=== PATIENT | female | born 1935 | race Caucasian/White ===

== ENCOUNTER 2017-02-13 20:09 | Emergency (ER) | payer MEDICARE ==
[~2017-02-13 20:09] MED LIST: ADVAI500I PO; BENI40TA30 PO; CYAN1KIT2 IM; DOCU1CAP39 PO; ESCI10TA PO; FERR324T4 PO; FLUT50I; HYDR-3533 PO; HYDR10SO PO; OMEP20.62 PO; TRAZ50TA78 PO; TUMS500C CHEW; WHEELCHAIR RENTAL RA
[2017-02-13 20:10] VITALS: BP 216/100; PULSE 72; RESP 16; TEMP 98.2; O2SAT 100
--- NOTE | 2017-02-13 20:46 | PD ---
Physical Exam Date Seen by Provider: Feb 13, 2017 Time Seen by Provider: 20:40 Narrative 81 YOWF C/O WEAKNESS AND MALAISE FOR 1 MONTH WORSE THIS WEEK. ALSO WITH N/V. HAS HOME HEALTH. HOME DOCTOR VISIT THIS WEEK VITALS REVIEWED. AWAITING BED PLACEMENT Data Data Last Documented VS Vital Signs Date Time Temp Pulse Resp B/P Pulse Ox O2 Delivery O2 Flow Rate FiO2 02/13/17 20:10 98.2 72 16 216/100 100 Room Air [facility] Medical Record Reviewed: Yes Supervised Visit with EDGAR: Yes Jitendra Pena Feb 13, 2017 20:46
[2017-02-13 20:49] VITALS: BP 186/88; PULSE 72; RESP 16; O2SAT 100
[2017-02-13] MEDS ORDERED: ONDANSETRON HCL 4 MG/2 ML VIAL IV ONE (22:00)
[2017-02-13] MEDS ORDERED: SODIUM CHLORID 0.9% 500 ML INJ 500 ML IV ONE (22:00)
[2017-02-13 22:10] VITALS: BP 206/96; PULSE 69; RESP 18; O2SAT 100
[2017-02-13] MEDS ORDERED: FERR1TAB36 PO (22:14)
[2017-02-13] MEDS ORDERED: BENI40TA3 PO (22:14)
[2017-02-13] MEDS ORDERED: LEXA10TA PO (22:14)
[2017-02-13] MEDS ORDERED: B12-1CHW CHEW (22:14)
[2017-02-13] MEDS ORDERED: OXYB5TAB10 PO (22:14)
[2017-02-13] MEDS ORDERED: COLA100C3 PO (22:14)
[2017-02-13] MEDS ORDERED: MELA5TAB15 PO (22:14)
[2017-02-13 22:15] VITALS: RESP 18; O2SAT 100
--- NOTE | 2017-02-13 22:40 | RADRPT ---
EXAM DATE/TIME: 02/13/2017 22:27 [facility] COMPARISON: CHEST SINGLE AP, June 17, 2016, 19:13. INDICATIONS : Chest pain. MEDICAL HISTORY : Hypertension. Right renal cell carcinoma. SURGICAL HISTORY : None. ENCOUNTER: Initial ACUITY: 1 day PAIN SCORE: 5/10 LOCATION: Bilateral chest FINDINGS: The lungs are clear without infiltrate, nodule, or mass. There is no appreciable pleural effusion fo r technique. Heart and mediastinum are unremarkable. CONCLUSION: No acute cardiopulmonary disease. Adelina Sharpe MD on February 13, 2017 at 22:38 Board Certified Radiologist. This report was verified electronically.
--- NOTE | 2017-02-13 22:43 | PD ---
HPI Chief Complaint: General Weakness Time Seen by Provider: 21:57 Travel History International Travel<30 days: No Contact w/Intl Traveler<30days: No Traveled to known affect area: No History of Present Illness HPI The patient is an 81 year old female who presents to the [facility] emergency department with a history of increased generalized weakness over the last week and a half to 2 weeks. The patient was brought in by her family member that reports that the patient has also been experiencing a component of depression. She was previously having home health come out to visit her and stay with her throughout the day, however recently she is only having visitors for a few hours a day. She also seems to be slightly more confused than usual according to her family member. They were concerned that she may have a urinary tract infection, however urinalysis a week and a half ago was reportedly normal. The patient also has an anterior right spencer wound related to bumping her right leg 2-1/2 weeks ago. It is being Willie and dressed on a daily basis. According to family, it is slowly improving with time. She reports that this morning on review of systems she did have a right-sided headache that resolved. She denies having any one-sided weakness, slurred speech, facial droop, difficulty with word finding ability or vision changes. The patient reports that she has had some urinary frequency and urgency she denies having any dysuria. The patient denies any recent fevers, cough, congestion, neck pain, chest pain, shortness of breath, vomiting, diarrhea, or other neurologic symptoms. PFSH Past Medical History Narrative Medical The patient's past medical history is significant for right-sided breast cancer status post lymph node resection and mastectomy with chronic lymphedema of the right upper extremity, history of uterine cancer status post hysterectomy, history of nephrectomy related to hematoma, history of some memory loss, hypertension, arthritis, osteoporosis, recent bilateral knee replacement, history of recent hip fracture status post ORIF, history of COPD and asthma, history of peptic ulcer disease, acid reflux, history of anemia with blood transfusion previously thought to be related to having a single kidney. Arthritis: No Asthma: Yes Autoimmune Disease: No Blood Disorders: No Anxiety: No Depression: No Heart Rhythm Problems: No Cancer: Yes (Right kidney CA) Cardiovascular Problems: No High Cholesterol: No Chemotherapy: Yes (BREASTS) Chest Pain: No Congestive Heart Failure: No COPD: Yes Cerebrovascular Accident: No Diabetes: No Diminished Hearing: Yes Endocrine: No Gastrointestinal Disorders: Yes (GERD) GERD: Yes Glaucoma: No Genitourinary: No Headaches: No Hepatitis: No Hiatal Hernia: No Hypertension: Yes Immune Disorder: No Implanted Vascular Access Dvce: Yes Kidney Stones: No Musculoskeletal: Yes Neurologic: No Psychiatric: No Reproductive: No Respiratory: Yes Integumentary: Yes (RIGHT ARM CELLULITIS) Immunizations Current: Yes Migraines: No Myocardial Infarction: No Radiation Therapy: No Renal Failure: No Seizures: No Sickle Cell Disease: No Sleep Apnea: No Thyroid Disease: No Ulcer: No Tetanus Vaccination: Unknown Influenza Vaccination: No PNEUMOCCOCAL Vaccine (Year): 1 ?: Not Menopausal: Yes : 3 Para: 3 Past Surgical History Narrative Surgical The patient's past surgical history is significant for right breast mastectomy, lymph node resection right axilla, hysterectomy, right nephrectomy, hernia repair, bilateral knee replacement, hip ORIF Abdominal Surgery: Yes AICD: No Appendectomy: Yes Arteriovenous Shunt: No Body Medical Devices: POSSIBLE MESH TO RIGHT GROIN Cardiac Surgery: No Section: Yes (3) Cholecystectomy: No Ear Surgery: No Endocrine Surgery: Yes (KINDEY REMOVAL 2003) Eye Surgery: No Genitourinary Surgery: No Gynecologic Surgery: Yes (hysterectomy) Hysterectomy: Yes Insulin Pump: No Joint Replacement: Yes (bilat knees right hip IM nail) Mastectomy: Yes (right) Neurologic Surgery: No Oral Surgery: No Pacemaker: No Thoracic Surgery: No Other Surgery: Yes (RIGHT MASTECTOMY 1996) Social History Alcohol Use: No Tobacco Use: No Substance Use: No Allergies-Medications (Allergen,Severity, Reaction): Coded Allergies: Demerol (Verified Allergy, Severe, 02/13/17) Niacin (Verified Allergy, Severe, RASH, 02/13/17) Penicillin (Verified Allergy, Severe, SKIN PEALED, 02/13/17) Sulfa (Verified Allergy, Severe, 02/13/17) Iodine (Verified Allergy, Unknown, unknown, 02/13/17) Pt was told never to use Iodine Uncoded Allergies: generic Benicar (Adverse Reaction, Severe, Hypertension, 06/17/16) Reported Meds & Prescriptions Reported Meds & Active Scripts Active Reported Iron (Ferrous Sulfate) 325 Mg Tab 325 Mg PO DAILY Take Ditropan (Oxybutynin Chloride) 5 Mg Tab 5 Mg PO HS Melatonin 5 Mg Tab 2 Mg PO HS Colace (Docusate Sodium) 100 Mg Cap 100 Mg PO HS Lexapro (Escitalopram Oxalate) 10 Mg Tab 10 Mg PO DAILY O39-Fixomg (Methylcobalamin) 1 Mg Chew 1 Mg CHEW DAILY Benicar (Olmesartan) 40 Mg Tab 40 Mg PO DAILY Review of Systems Except as stated in HPI: all other systems reviewed are Neg General / Constitutional: No: Fever Eyes: No: Visual changes HENT: No: Headaches Cardiovascular: No: Chest Pain or Discomfort Respiratory: No: Shortness of Breath Gastrointestinal: Positive: Nausea, Other (her last bowel movement was reportedly yesterday), No: Vomiting, Diarrhea, Abdominal Pain, Constipation, Changes in Bowel Habits, Loss of Appetite Genitourinary: No: Dysuria Musculoskeletal: No: Pain Skin: No Rash Neurologic: Positive: Weakness (generalized weakness and fatigue), No: Focal Abnormalities, Change in Mentation, Slurred Speech, Sensory Disturbance Psychiatric: No: Depression Endocrine: No: Polydipsia Hematologic/Lymphatic: No: Easy Bruising Physical Exam Narrative General: The patient is a well-developed well-nourished female in no acute distress. Head and Neck exam: Head is normocephalic atraumatic. Eyes: EOMI, pupils are equal round and reactive to light. Nose: Midline septum with pink mucous membranes Mouth: Dentition unremarkable. Moist mucus membranes. Posterior oropharynx is not erythematous. No tonsillar hypertrophy. Uvula midline. Airway patent. Neck: No palpable lymphadenopathy. No nuchal rigidity. No thyromegaly. Cardiovascular: Regular rate and rhythm without murmurs, gallops, or rubs. Lungs: Clear to auscultation bilaterally. No wheezes, rhonchi, or rales. Abdomen: Soft, without tenderness to palpation in all 4 quadrants of the abdomen. No guarding, rebound, or rigidity. Normal bowel sounds are audible. No tenderness on palpation of McBurney's point. Negative Barba's sign. Extremities: No clubbing or cyanosis.. 2+ pulses in all 4 extremities. The patient on examination of the right upper extremity has slight swelling noted which is chronic related to lymphedema Back: No spinous process tenderness to palpation. No costovertebral angle tenderness to palpation. Neurologic Exam: Cranial nerves 2-12 were intact on exam. Strength is 5/5 in all 4 extremities. No sensory deficits noted. Skin Exam: No rash noted. Intact skin that is warm and dry. She does have an abrasion on the right anterior spencer has a clean, dry, and intact bandage in place, there is a small surrounding area of erythema, no tenderness on palpation. No crepitus. No warmth or edema. Data Data Last Documented VS Vital Signs Date Time Temp Pulse Resp B/P Pulse Ox O2 Delivery O2 Flow Rate FiO2 02/13/17 22:15 18 100 Room Air 02/13/17 22:10 69 206/96 02/13/17 20:10 98.2 Orders Electrocardiogram (02/13/17 21:58) Complete Blood Count With Diff (02/13/17 21:58) Comprehensive Metabolic Panel (02/13/17 21:58) Creatine Kinase (Cpk) (02/13/17 21:58) Ckmb (Isoenzyme) Profile (02/13/17 21:58) Troponin I (02/13/17 21:58) B-Type Natriuretic Peptide (02/13/17 21:58) Prothrombin Time / Inr (Pt) (02/13/17 21:58) Act Partial Throm Time (Ptt) (02/13/17 21:58) Blood Culture (02/13/17 21:58) Lipase (02/13/17 21:58) Urinalysis - C+S If Indicated (02/13/17 21:58) Cath For Specimen (02/13/17 21:58) Magnesium (Mg) (02/13/17 21:58) Thyroid Stimulating Hormone (02/13/17 21:58) Chest, Single Ap (02/13/17 21:58) Iv Access Insert/Monitor (02/13/17 21:58) Ecg Monitoring (02/13/17 21:58) Oximetry (02/13/17 21:58) Lactic Acid Sepsis Protocol (02/13/17 21:58) Sodium Chlorid 0.9% 500 Ml Inj (Ns 500 M (02/13/17 22:00) Ondansetron Inj (Zofran Inj) (02/13/17 22:00) Ct Brain W/O Iv Contrast(Rout) (02/13/17 23:56) Labs Laboratory Tests Test 02/13/17 02/13/17 22:22 23:15 White Blood Count 7.2 TH/MM3 Red Blood Count 3.92 MIL/MM3 Hemoglobin 12.4 GM/DL Hematocrit 35.8 % Mean Corpuscular Volume 91.4 FL Mean Corpuscular Hemoglobin 31.7 PG Mean Corpuscular Hemoglobin 34.7 % Concent Red Cell Distribution Width 12.8 % Platelet Count 219 TH/MM3 Mean Platelet Volume 8.0 FL Neutrophils (%) (Auto) 63.0 % Lymphocytes (%) (Auto) 25.6 % Monocytes (%) (Auto) 8.7 % Eosinophils (%) (Auto) 2.3 % Basophils (%) (Auto) 0.4 % Neutrophils # (Auto) 4.5 TH/MM3 Lymphocytes # (Auto) 1.8 TH/MM3 Monocytes # (Auto) 0.6 TH/MM3 Eosinophils # (Auto) 0.2 TH/MM3 Basophils # (Auto) 0.0 TH/MM3 CBC Comment DIFF FINAL Differential Comment Prothrombin Time 10.1 SEC Prothromb Time International 0.9 RATIO Ratio Activated Partial 28.0 SEC Thromboplast Time Sodium Level 136 MEQ/L Potassium Level 4.3 MEQ/L Chloride Level 100 MEQ/L Carbon Dioxide Level 27.8 MEQ/L Anion Gap 8 MEQ/L Blood Urea Nitrogen 14 MG/DL Creatinine 0.86 MG/DL Estimat Glomerular Filtration 63 ML/MIN Rate Random Glucose 83 MG/DL Lactic Acid Level 0.4 mmol/L Calcium Level 10.1 MG/DL Magnesium Level 2.2 MG/DL Total Bilirubin 0.6 MG/DL Aspartate Amino Transf 15 U/L (AST/SGOT) Alanine Aminotransferase 16 U/L (ALT/SGPT) Alkaline Phosphatase 98 U/L Total Creatine Kinase 52 U/L Troponin I 0.05 NG/ML B-Type Natriuretic Peptide 34 PG/ML Total Protein 7.3 GM/DL Albumin 3.7 GM/DL Lipase 183 U/L Thyroid Stimulating Hormone 1.290 uIU/ML 3rd Gen Urine Color LIGHT-YELLOW Urine Turbidity CLEAR Urine pH 7.0 Urine Specific [place] 1.004 Urine Protein NEG mg/dL Urine Glucose (UA) NEG mg/dL Urine Ketones NEG mg/dL Urine Occult Blood NEG Urine Nitrite NEG Urine Bilirubin NEG Urine Urobilinogen LESS THAN 2.0 MG/DL Urine Leukocyte Esterase NEG Urine WBC LESS THAN 1 /hpf Urine Squamous Epithelial <1 /hpf Cells Microscopic Urinalysis Comment CULT NOT INDICATED MDM Medical Decision Making Medical Screen Exam Complete: Yes Emergency Medical Condition: Yes Medical Record Reviewed: Yes Interpretation(s) Last Impressions Chest X-Ray 02/13/179 Signed Impressions: Service Date/Time: Monday, February 13, 2017 22:27 - CONCLUSION: No acute cardiopulmonary disease. Adelina Sharpe MD Differential Diagnosis Dehydration, versus intracranial abnormality, versus electrolyte abnormality, versus urinary tract infection, versus pneumonia, versus depression Narrative Course During the course of the patients emergency department visit, the patients history, examination, and differential diagnosis were reviewed with the patient. The patient had IV access obtained and blood work sent for analysis. The patient was placed on a cafeteria monitor with oximetry and blood pressure monitoring. An EKG was done on arrival. The patient's EKG shows a sinus rhythm heart rate of 71, no acute ST segment elevation or depression is noted, T waves are inverted in V1. The patient was provided normal saline a 500 mL bolus 1, Zofran 4 mg IV. The patients laboratory studies were reviewed and remarkable for a CBC that shows a white count of 7.2, hemoglobin 12.4, platelets 219 with 8.7 monocytes. CMP is remarkable for GFR 63, lactic acid is 0.4, cardiac enzymes are within normal limits, BNP is 34, TSH 1.29, lipase 183, PT PTT within normal limits. Urinalysis within normal limits. Radiology studies were reviewed and remarkable for a chest x-ray that shows no acute abnormality. CT scan of the brain showed no acute intracranial abnormality, questionable nasal polyp involving the left nasal cavity, acute left maxillary sinus disease, chronic left ethmoid sinus disease. The patient will be discharged home with a prescription for an antibiotic for acute sinusitis. The patient's family was instructed regarding the results. The patient was instructed to follow-up closely with her primary care physician for reexamination and further discussion regarding the possibility of depression causing some of her generalized fatigue and increase day time sleeping. The patient is resting comfortably and feels better, is alert and in no distress. The patients results and examination findings were discussed with the patient. The repeat examination is unremarkable and benign. The history, exam, diagnostic testing, and current condition do not suggest any significant pathology to warrant further testing, continued ED treatment, admission, or surgical evaluation at this point. The vital signs have been stable. The patient does not have uncontrollable pain, intractable vomiting, or other significant symptoms. The patient's condition is stable and appropriate for discharge. The patient will pursue further outpatient evaluation with a primary care physician or other designated or consulting physician as indicated in the discharge instructions. The patient expressed understanding and was agreeable with this plan. Diagnosis Primary Impression: Weakness generalized Additional Impression: Left maxillary sinusitis Referrals: Primary Care Physician 2 days Patient Instructions: Fatigue (ED), General Instructions, Sinusitis (ED) Med/Other Pt SpecificInfo: Prescription(s) given, No Change to Meds Scripts Doxycycline Hyclate 100 Mg [id number] Mg PO BID #20 CAP Ref 0 Prov:Rosalia Kaufman MD 02/14/17 Disposition: 01 DISCHARGE HOME Condition: Stable Rosalia Kaufman MD Feb 13, 2017 22:43
[2017-02-13 22:52] LABS: AUTOMATED NEUTROPHIL # 4.5 TH/MM3 (1.8-7.7); BASOPHIL % 0.4 % (0.0-2.0); EOSINOPHIL # 0.2 TH/MM3 (0-0.4); EOSINOPHIL % 2.3 % (0.0-4.0); HEMATOCRIT 35.8 % (35.0-46.0); HEMO FLAGS DIFF FINAL; LYMPH % 25.6 % (9.0-44.0); LYMPHOCYTE # 1.8 TH/MM3 (1.0-4.8); MEAN CELL VOLUME 91.4 FL (80.0-100.0); MEAN CORPUSCULAR HEMOGLOBIN 31.7 PG (27.0-34.0); MEAN CORPUSCULAR HGB CONC 34.7 % (32.0-36.0); MONO % 8.7 % (0.0-8.0); PLATELET COUNT 219 TH/MM3 (150-450); RED BLOOD COUNT 3.92 MIL/MM3 (4.00-5.30); RED CELL DISTRIBUTION WIDTH 12.8 % (11.6-17.2); WHITE BLOOD COUNT 7.2 TH/MM3 (4.0-11.0)
[2017-02-13 23:08] LABS: ALT (GPT) 16 U/L (10-53); ANION GAP 8 MEQ/L (5-15); AST (GOT) 15 U/L (15-37); BICARBONATE 27.8 MEQ/L (21.0-32.0); BLOOD UREA NITROGEN 14 MG/DL (7-18); CHLORIDE 100 MEQ/L (98-107); GLOMERULAR FILTRATION RATE 63 ML/MIN (>89); MAGNESIUM 2.2 MG/DL (1.5-2.5); POTASSIUM 4.3 MEQ/L (3.5-5.1); SODIUM (NA) 136 MEQ/L (136-145)
[2017-02-13 23:18] LABS: ALKALINE PHOSPHATASE 98 U/L (45-117); TOTAL BILIRUBIN ADULT 0.6 MG/DL (0.2-1.0)
[2017-02-13 23:22] LABS: CREATINE KINASE 52 U/L (26-192)
[2017-02-13 23:24] LABS: BLOOD, URINE NEG (NEG); GLUCOSE,URINE NEG (NEG); KETONE, URINE NEG (NEG); NITRITE,URINE NEG (NEG); SQUAMOUS EPITHELIAL CELL URINE <1 /hpf (0-5); URINE COLOR LIGHT-YELLOW (YELLW/STRAW)
[2017-02-13 23:28] LABS: COMMENT (UR) CULT NOT INDICATED; CULTURE IF INDICATED CULT NOT INDICATED
[2017-02-13 23:31] LABS: INTERNATIONAL NORMALIZED RATIO 0.9 RATIO; PROTHROMBIN TIME - PATIENT 10.1 SEC (9.8-11.6)
--- NOTE | 2017-02-14 00:45 | RADRPT ---
EXAM DATE/TIME: 02/14/2017 00:23 [facility] COMPARISON: CT BRAIN W/O CONTRAST, July 11, 2016, 17:06. INDICATIONS : Generalized weakness, Right sided headache RADIATION DOSE: 56.35 CTDIvol (mGy) MEDICAL HISTORY : Hypertension. Chronic obstructive pulmonary disease. Gastroesophageal reflux disease.Renal cancer Nila ast cancer SURGICAL HISTORY : Appendectomy. Hysterectomy.Nephrectomy, right.Right mastectomy ENCOUNTER: Initial ACUITY: 1 day PAIN SCALE: 0/10 LOCATION: Right cranial TECHNIQUE: Multiple contiguous axial images were obtained of the head. Using automated exposure control and adj ustment of the mA and/or kV according to patient size, radiation dose was kept as low as reasonably a chievable to obtain optimal diagnostic quality images. FINDINGS: CEREBRUM: The ventricles are normal for age. No evidence of midline shift, mass lesion, hemorrhage or acute in farction. No extra-axial fluid collections are seen. POSTERIOR FOSSA: The cerebellum and brainstem are intact. The 4th ventricle is midline. The cerebellopontine angle i s unremarkable. EXTRACRANIAL: The visualized portion of the orbits is intact. There is soft tissue opacification involving the left nasal cavity with mucosal thickening and air-fluid level within the left maxillary sinus. Mucosal th ickening within anterior ethmoid air cells on the left. Remaining paranasal sinuses and mastoid air c ells are clear. SKULL: The calvaria is intact. No evidence of skull fracture. CONCLUSION: 1. No acute intracranial abnormality. 2. Questionable nasal polyp involving the left nasal cavity. 3. Acute left maxillary sinus disease. 4. Chronic left ethmoid sinus disease. Russ Nice Jr., MD on February 14, 2017 at 0:42 Board Certified Radiologist. This report was verified electronically.
[2017-02-14] MEDS ORDERED: DOXY100C PO (00:48)
--- NOTE | 2017-02-14 10:47 | EKG ---
Date Performed: 02/13/2017 Time Performed: 22:38:40 PTAGE: 81 years EKG: Sinus rhythm MINIMAL VOLTAGE CRITERIA FOR LVH, CONSIDER NORMAL VARIANT BORDERLINE ECG Compared to prior tracing n o significant change PREVIOUS TRACING : 06/17/2016 19.27 DOCTOR: Destiny Murillo Interpretating Date/Time 02/14/2017 10:40:50
== END 2017-02-14 01:12 | disposition home or self-care (01) ==
LOC: NEPC 20:09
DX: R53.1 Weakness (principal); J32.0 Chronic maxillary sinusitis; B95.7 Other staphylococcus as the cause of diseases classified elsewhere; J45.909 Unspecified asthma, uncomplicated; J44.9 Chronic obstructive pulmonary disease, unspecified; I10 Essential (primary) hypertension; K21.9 Gastro-esophageal reflux disease without esophagitis; Z79.899 Other long term (current) drug therapy; Z85.3 Personal history of malignant neoplasm of breast; Z85.528 Personal history of other malignant neoplasm of kidney
CPT/HCPCS: 70450; 71010; 80053; 81001; 82550; 83605; 83690; 83735; 83880; 84443; 84484; 85025; 85610; 85730; 86403; 87040; 87077; 87186; 87205; 93005; 96361; 96374; 99285; J2405; J7040

== ENCOUNTER 2017-03-12 11:49 | Inpatient (IN) | payer MEDICARE ==
[~2017-03-12] VITALS: Ht 157.5 cm; Wt 51.7 kg
[2017-03-12] VITALS (8 sets, daily range): BP systolic 99–144; BP diastolic 66–87; PULSE 75–94; RESP 15–18; TEMP 97.8–98.4; O2SAT 97–99
[~2017-03-12 11:49] MED LIST changes: -ADVAI500I PO; +B12-1CHW CHEW; +BENI40TA3 PO; -BENI40TA30 PO; +COLA100C3 PO; -CYAN1KIT2 IM; -DOCU1CAP39 PO; +DOXY100C PO; -ESCI10TA PO; +FERR1TAB36 PO; -FERR324T4 PO; -FLUT50I; -HYDR-3533 PO; -HYDR10SO PO; +LEXA10TA PO; +LOSARTAN 50 MG TAB PO SCH; +MELA5TAB15 PO; -OMEP20.62 PO; +OXYB5TAB10 PO; -TRAZ50TA78 PO; -TUMS500C CHEW; -WHEELCHAIR RENTAL RA
[2017-03-12] MEDS ORDERED: SODIUM CHLORIDE 0.9% FLUSH 10 ML FLUSH IV FLUSH PRN ×2 (12:45→16:15)
[2017-03-12] MEDS ORDERED: AMLO5TAB2 PO (12:54)
[2017-03-12] MEDS ORDERED: MELAPOW2 PO (12:54)
[2017-03-12] MEDS ORDERED: MELA3CAP PO (12:54)
[2017-03-12] MEDS ORDERED: MAGN1TAB14 PO (12:54)
[2017-03-12] MEDS ORDERED: STOO100C PO (12:54)
[2017-03-12] MEDS ORDERED: LEXA10TA PO (12:54)
[2017-03-12] MEDS: MORPHINE SULFATE 4 MG/ML INJ IV PUSH ONE ×2 (13:00→13:39)
[2017-03-12] MEDS: ONDANSETRON HCL 4 MG/2 ML VIAL IVP ONE ×2 (13:00→13:38)
--- NOTE | 2017-03-12 13:30 | PD ---
HPI Chief Complaint: Abdominal Pain Time Seen by Provider: 12:09 Travel History International Travel<30 days: No Contact w/Intl Traveler<30days: No Traveled to known affect area: No History of Present Illness HPI 81-year-old female arrives from [facility]. She reports constipation for a few days. Positive flatus reported. Positive bowel movements reported, hard round stools. She complains of pain in the right abdomen primarily. She underwent a urinalysis that the [facility] which was normal. The patient reports urinary frequency. She's had no vomiting or fever. The pain in the right abdomen is worse with palpation. Onset gradual. PFSH Past Medical History Arthritis: Yes Asthma: Yes Autoimmune Disease: No Blood Disorders: No Anxiety: No Depression: No Heart Rhythm Problems: No Cardiovascular Problems: No High Cholesterol: No Chemotherapy: Yes Chest Pain: No Congestive Heart Failure: No COPD: Yes Cerebrovascular Accident: No Diabetes: No Diminished Hearing: Yes Endocrine: No GERD: Yes Glaucoma: No Genitourinary: No Headaches: No Hepatitis: No Hiatal Hernia: No Hypertension: Yes Immune Disorder: No Implanted Vascular Access Dvce: Yes Kidney Stones: No Musculoskeletal: Yes Neurologic: No Psychiatric: No Reproductive: No Respiratory: Yes Integumentary: Yes (hx of having RIGHT ARM CELLULITIS) Immunizations Current: Yes Migraines: No Myocardial Infarction: No Radiation Therapy: No Renal Failure: No Seizures: No Sickle Cell Disease: No Sleep Apnea: No Thyroid Disease: No Ulcer: No Tetanus Vaccination: > 5 Years Influenza Vaccination: No PNEUMOCCOCAL Vaccine (Year): 1 ?: Not Menopausal: Yes : 3 Para: 3 Past Surgical History Abdominal Surgery: Yes AICD: No Appendectomy: Yes Arteriovenous Shunt: No Body Medical Devices: POSSIBLE MESH TO RIGHT GROIN Cardiac Surgery: No Section: Yes (3) Cholecystectomy: No Ear Surgery: No Endocrine Surgery: Yes (kidney removed 2003) Eye Surgery: No Genitourinary Surgery: No Gynecologic Surgery: Yes (hysterectomy) Hysterectomy: Yes Insulin Pump: No Joint Replacement: Yes (bilat knees & right hip IM nail) Mastectomy: Yes (right side ) Neurologic Surgery: No Oral Surgery: No Pacemaker: No Thoracic Surgery: No Other Surgery: Yes (RIGHT MASTECTOMY 1996) Social History Alcohol Use: No Tobacco Use: No (quit 30+ yrs ago-hx of social smoker) Substance Use: No Allergies-Medications (Allergen,Severity, Reaction): Coded Allergies: Demerol (Verified Allergy, Severe, 03/12/17) Niacin (Verified Allergy, Severe, RASH, 03/12/17) Penicillin (Verified Allergy, Severe, SKIN PEALED, 03/12/17) Sulfa (Verified Allergy, Severe, 03/12/17) Iodine (Verified Allergy, Unknown, unknown, 03/12/17) Pt was told never to use Iodine Uncoded Allergies: generic Benicar (Adverse Reaction, Severe, Hypertension, 03/12/17) . Reported Meds & Prescriptions Reported Meds & Active Scripts Active Reported Melatonin 3 Mg Cap 1 Tab PO DIRECTED PRN Melatonin (Melatonin (Bulk)) 1 Pow Pow 3 Mg PO Amlodipine (Amlodipine Besylate) 5 Mg Tab 5 Mg PO DAILY Stool Softener (Docusate Sodium) 100 Mg Cap 1 Cap PO DIRECTED PRN Lexapro (Escitalopram Oxalate) 10 Mg Tab 10 Mg PO DAILY Magnesium 400 Mg Tab 400 Mg PO DAILY Iron (Ferrous Sulfate) 325 Mg Tab 325 Mg PO DAILY Take Ditropan (Oxybutynin Chloride) 5 Mg Tab 5 Mg PO HS Benicar (Olmesartan) 40 Mg Tab 40 Mg PO DAILY Review of Systems Except as stated in HPI: all other systems reviewed are Neg General / Constitutional: No: Fever Gastrointestinal: Positive: Constipation Physical Exam Narrative GENERAL: 81-year-old female well-nourished developed SKIN: Focused skin assessment warm/dry. HEAD: Atraumatic. Normocephalic. EYES: Pupils equal and round. No scleral icterus. No injection or drainage. ENT: No nasal bleeding or discharge. Mucous membranes pink and moist. NECK: Trachea midline. No JVD. CARDIOVASCULAR: Regular rate and rhythm. No murmur appreciated. RESPIRATORY: No accessory muscle use. Clear to auscultation. Breath sounds equal bilaterally. GASTROINTESTINAL: Tenderness to palpation right abdomen. Soft. MUSCULOSKELETAL: No obvious deformities. No clubbing. No cyanosis. No edema. NEUROLOGICAL: Awake and alert. No obvious cranial nerve deficits. Motor grossly within normal limits. Normal speech. PSYCHIATRIC: Appropriate mood and affect; insight and judgment normal. Data Data Last Documented VS Vital Signs Date Time Temp Pulse Resp B/P Pulse Ox O2 Delivery O2 Flow Rate FiO2 03/12/17 15:15 90 16 144/74 97 Room Air 03/12/17 11:56 98.2 Vital signs reviewed Orders Urinalysis - C+S If Indicated (03/12/17 11:52) Complete Blood Count With Diff (03/12/17 12:42) Comprehensive Metabolic Panel (03/12/17 12:42) Lipase (03/12/17 12:42) Ct Abd/Pel W/O Iv Contrast (03/12/17 12:42) Iv Access Insert/Monitor (03/12/17 12:42) Ecg Monitoring (03/12/17 12:42) Oximetry (03/12/17 12:42) Ondansetron Inj (Zofran Inj) (03/12/17 12:45) Sodium Chloride 0.9% Flush (Ns Flush) (03/12/17 12:45) Morphine Inj (Morphine Inj) (03/12/17 12:45) Ciprofloxacin 400 Mg Premix (Cipro 400 M (03/12/17 15:45) Metronidazole 500 Mg Inj (Flagyl 500 Mg (03/12/17 15:45) Admit Order (Ed Use Only) (03/12/17 15:42) Amlodipine (Norvasc) (03/13/17 09:00) Escitalopram (Lexapro) (03/13/17 09:00) Ferrous Sulfate (Ferrous Sulfate) (03/13/17 09:00) Oxybutynin (Ditropan) (03/12/17 21:00) Labs Laboratory Tests Test 03/12/17 13:30 White Blood Count 11.6 TH/MM3 Red Blood Count 4.03 MIL/MM3 Hemoglobin 12.5 GM/DL Hematocrit 37.2 % Mean Corpuscular Volume 92.3 FL Mean Corpuscular Hemoglobin 31.0 PG Mean Corpuscular Hemoglobin 33.6 % Concent Red Cell Distribution Width 11.8 % Platelet Count 236 TH/MM3 Mean Platelet Volume 8.0 FL Neutrophils (%) (Auto) 79.1 % Lymphocytes (%) (Auto) 10.7 % Monocytes (%) (Auto) 9.2 % Eosinophils (%) (Auto) 0.3 % Basophils (%) (Auto) 0.7 % Neutrophils # (Auto) 9.2 TH/MM3 Lymphocytes # (Auto) 1.2 TH/MM3 Monocytes # (Auto) 1.1 TH/MM3 Eosinophils # (Auto) 0.0 TH/MM3 Basophils # (Auto) 0.1 TH/MM3 CBC Comment DIFF FINAL Differential Comment Sodium Level 137 MEQ/L Potassium Level 4.2 MEQ/L Chloride Level 98 MEQ/L Carbon Dioxide Level 27.4 MEQ/L Anion Gap 12 MEQ/L Blood Urea Nitrogen 17 MG/DL Creatinine 0.95 MG/DL Estimat Glomerular Filtration 56 ML/MIN Rate Random Glucose 98 MG/DL Calcium Level 10.2 MG/DL Total Bilirubin 1.0 MG/DL Aspartate Amino Transf 18 U/L (AST/SGOT) Alanine Aminotransferase 17 U/L (ALT/SGPT) Alkaline Phosphatase 97 U/L Total Protein 7.6 GM/DL Albumin 3.3 GM/DL Lipase 115 U/L [facility] Medical Decision Making Medical Screen Exam Complete: Yes Emergency Medical Condition: Yes Medical Record Reviewed: Yes Differential Diagnosis Constipation, Gastritis, Acute Cholecystitis, Biliary Colic, Pancreatitis, [place] , Hepatitis, Bowel Obstruction, Cystitis, Mesenteric Ischemia, AAA, Appendicitis , Renal Stone/Hydronephrosis, GERD, perforated viscous Narrative Course CBC & BMP Diagram 03/12/17 13:30 LFTs normal Lipase normal Last 24 hours Impressions Abdomen/Pelvis CT 03/12/17 1242 Signed Impressions: Service Date/Time: Sunday, March 12, 2017 14:44 - CONCLUSION: 1. Inflammatory changes adjacent to the sigmoid colon. Wall thickening of the sigmoid colon. Multiple sigmoid colon diverticula. ndings suggest acute diverticulitis. No evidence of abscess or free air. 2. Nonobstructing left renal calculus. 3. 2.4 cm rounded left renal mass is not definitively characterize but statistically is likely to represent a cyst. 4. Cholelithiasis. No pericholecystic inflammatory changes. 5. Status post right nephrectomy. Ganga Bundy MD Cipro Flagyl started. The patient refused pain medication however was still fairly tender, though soft, upon reassessment prior to admission. She agreed to try some Tylenol. Case discussed with the daughter and patient and both are amenable with plan for admission. Case discussed with Dr. Mtz. Diagnosis Primary Impression: Diverticulitis Qualified Code: K57.32 - Diverticulitis of large intestine without perforation or abscess without bleeding Additional Impressions: Cholelithiases Qualified Code: K80.20 - Calculus of gallbladder without cholecystitis without obstruction Constipation Qualified Code: K59.00 - Constipation, unspecified constipation type Admitting Information Admitting Physician Requests: Admit Mj Woodard MD Mar 12, 2017 13:30
[2017-03-12 13:42] LABS: AUTOMATED NEUTROPHIL # 9.2 TH/MM3 (1.8-7.7); BASOPHIL # 0.1 TH/MM3 (0-0.2); BASOPHIL % 0.7 % (0.0-2.0); EOSINOPHIL % 0.3 % (0.0-4.0); HEMATOCRIT 37.2 % (35.0-46.0); HEMO FLAGS DIFF FINAL; LYMPH % 10.7 % (9.0-44.0); LYMPHOCYTE # 1.2 TH/MM3 (1.0-4.8); MEAN CELL VOLUME 92.3 FL (80.0-100.0); MEAN CORPUSCULAR HGB CONC 33.6 % (32.0-36.0); MONO % 9.2 % (0.0-8.0); NEUT % 79.1 % (16.0-70.0); PLATELET COUNT 236 TH/MM3 (150-450); RED BLOOD COUNT 4.03 MIL/MM3 (4.00-5.30); RED CELL DISTRIBUTION WIDTH 11.8 % (11.6-17.2); WHITE BLOOD COUNT 11.6 TH/MM3 (4.0-11.0)
[2017-03-12 13:55] LABS: CHLORIDE 98 MEQ/L (98-107); POTASSIUM 4.2 MEQ/L (3.5-5.1); SODIUM (NA) 137 MEQ/L (136-145)
[2017-03-12 13:59] LABS: ANION GAP 12 MEQ/L (5-15); BICARBONATE 27.4 MEQ/L (21.0-32.0); BLOOD UREA NITROGEN 17 MG/DL (7-18)
[2017-03-12 14:01] LABS: ALT (GPT) 17 U/L (10-53); AST (GOT) 18 U/L (15-37); GLOMERULAR FILTRATION RATE 56 ML/MIN (>89)
[2017-03-12 14:04] LABS: ALKALINE PHOSPHATASE 97 U/L (45-117)
--- NOTE | 2017-03-12 15:15 | RADHPO ---
EXAM DATE/TIME: 03/12/2017 14:44 [place] COMPARISON: No previous studies available for comparison. INDICATIONS : Right lower quadrant pain. ORAL CONTRAST: No oral contrast ingested. RADIATION DOSE: 8.88 CTDIvol (mGy) MEDICAL HISTORY : Chronic obstructive pulmonary disease. Gastroesophageal reflux disease. Hypertension.Right breast can cer. Right renal cancer. SURGICAL HISTORY : Appendectomy. Hysterectomy. section.Right nephrectomy. Right mastectomy. ENCOUNTER: Initial ACUITY: 1 day PAIN SCALE: 4/10 LOCATION: Right lower quadrant TECHNIQUE: Volumetric scanning of the abdomen and pelvis was performed. Using automated exposure control and ad justment of the mA and/or kV according to patient size, radiation dose was kept as low as reasonably achievable to obtain optimal diagnostic quality images. FINDINGS: LOWER LUNGS: The visualized lower lungs are clear. LIVER: Small calcified gallstones. No pericholecystic inflammatory changes. Liver within normal limits. SPLEEN: Normal size without lesion. PANCREAS: Within normal limits. KIDNEYS: 4 x 2 mm calculus in the lower pole on the left. No hydronephrosis. Status post right nephrectomy. 2. 4 cm mass in the posterior midpole on the left is most likely to represent a cyst. ADRENAL GLANDS: Within normal limits. VASCULAR: Aortic calcification. Aortic diameter are within normal limits. BOWEL/MESENTERY: Prominent amount of stool in the rectum and sigmoid colon. Sigmoid colon diverticula noted. Inflammat ory changes about the distal sigmoid colon suggesting acute diverticulitis. No organized abscess or f ree air. Appendix not identified. ABDOMINAL WALL: Within normal limits. RETROPERITONEUM: There is no lymphadenopathy. BLADDER: No wall thickening or mass. REPRODUCTIVE: Within normal limits. INGUINAL: Unremarkable. MUSCULOSKELETAL: Degenerative findings lumbar spine. CONCLUSION: 1. Inflammatory changes adjacent to the sigmoid colon. Wall thickening of the sigmoid colon. Multiple sigmoid colon diverticula. ndings suggest acute diverticulitis. No evidence of abscess or free air. 2. Nonobstructing left renal calculus. 3. 2.4 cm rounded left renal mass is not definitively characterize but statistically is likely to rep resent a cyst. 4. Cholelithiasis. No pericholecystic inflammatory changes. 5. Status post right nephrectomy. Ganga Bundy MD on March 12, 2017 at 15:06 Board Certified Radiologist. This report was verified electronically.
[2017-03-12] MEDS ORDERED: CIPROFLOXACIN 400 MG PREMIX 200 ML IV ONE (15:45)
[2017-03-12] MEDS ORDERED: metroNIDAZOLE 500 MG INJ 100 ML IV ONE (15:45)
[2017-03-12] MEDS ORDERED: ACETAMINOPHEN 325 MG TAB PO ONE (16:00)
--- NOTE | 2017-03-12 16:14 | HHI.HP ---
[facility] Primary Care Physician No Primary Care Physician Admission Diagnosis Diverticulitis, Constipation Diagnoses: Chief Complaint: Abdominal pain, urinary frequency Travel History International Travel<30 Days: No Contact w/Intl Traveler <30 Da: No Traveled to Known Affected Are: No History of Present Illness The patient is an 81-year-old female with a past medical history of hypertension and breast cancer who is presenting to the hospital with abdominal pain and urinary frequency. The patient said all night she has been having urinary frequency. She said she would get up to go to the bathroom, put on a new diaper and then have to go to the bathroom again. Per the patient's family this has been going on for quite some time. The patient also endorsed some discomfort in the lower abdominal area. She rated the pain in her stomach as an 8 out of 10 in severity at its worst. It was not accompanied by nausea or vomiting. She says she has been constipated for the past 2 days. She says she has been burping but has not been passing any gas otherwise. She says she has had a decreased appetite. She denies any fevers. She currently rates her pain as a 4 out of 10. She says she has a service that comes to her house and they have tested her for a urinary tract infection but those tests came back negative. Review of Systems Except as stated in HPI: all other systems reviewed are Neg Past Family Social History Past Medical History Cellulitis Hypertension Asthma Bronchitis Breast cancer status post radiation/surgery/chemotherapy Chronic lymphedema of the right arm Renal cancer status post right nephrectomy Bilateral knee replacements Right hip surgery Allergies: Coded Allergies: Demerol (Verified Allergy, Severe, 03/12/17) Niacin (Verified Allergy, Severe, RASH, 03/12/17) Penicillin (Verified Allergy, Severe, SKIN PEALED, 03/12/17) Sulfa (Verified Allergy, Severe, 03/12/17) Iodine (Verified Allergy, Unknown, unknown, 03/12/17) Pt was told never to use Iodine Uncoded Allergies: generic Benicar (Adverse Reaction, Severe, Hypertension, 03/12/17) . Active Ordered Medications Current Medications Medications (Trade) Dose Ordered Sig/Bernadette Route Start Time Stop Time Status Last Admin Sodium Chloride 2 ml 2 ml UNSCH PRN IV FLUSH 03/12/17 12:45 Ciprofloxacin/ Dextrose 200 ml @ 200 mls/hr ONCE ONCE IV 03/12/17 15:45 03/12/17 16:44 03/12/17 15:52 (Flagyl 500 Mg Inj) 100 ml @ 100 mls/hr ONCE ONCE IV 03/12/17 15:45 03/12/17 16:44 (Norvasc) 5 mg DAILY PO 03/13/17 09:00 (Lexapro) 10 mg DAILY PO 03/13/17 09:00 (Ferrous Sulfate) 325 mg DAILY PO 03/13/17 09:00 (Ditropan) 5 mg HS PO 03/12/17 21:00 (Cozaar) 100 mg DAILY PO 03/12/17 09:00 (NS Flush) 2 ml UNSCH PRN IV FLUSH 03/12/17 16:15 UNV (NS Flush) 2 ml BID IV FLUSH 03/12/17 21:00 UNV (Tylenol) 650 mg Q4H PRN PO 03/12/17 16:15 UNV (Zofran Inj) 4 mg Q6H PRN IVP 03/12/17 16:15 (Colace) 100 mg Q12HR PO 03/12/17 16:15 (Senokot) 17.2 mg DAILY PO 03/12/17 16:15 (Tylenol) 650 mg Q6H PRN PO 03/12/17 16:15 UNV (Morphine Inj) 2 mg Q4H PRN IV 03/12/17 16:15 (Roxicodone) 5 mg Q4H PRN PO 03/12/17 16:15 UNV (Narcan Inj) 0.4 mg UNSCH PRN IV 03/12/17 16:15 Family History CAD Emphysema Social History The patient does not smoke or drink. Physical Exam Vital Signs Vital Signs Date Time Temp Pulse Resp B/P Pulse Ox O2 Delivery O2 Flow Rate FiO2 03/12/17 15:15 90 16 144/74 97 Room Air 03/12/17 15:00 16 03/12/17 14:00 94 16 120/73 98 Room Air 03/12/17 12:58 16 98 Room Air 03/12/17 12:57 16 03/12/17 11:56 98.2 82 15 137/82 99 Physical Exam GENERAL: This is a well-nourished, well-developed patient, in no apparent distress. SKIN: No rashes, ecchymoses or lesions. Cool and dry. HEAD: Atraumatic. Normocephalic. No temporal or scalp tenderness. EYES: Pupils equal round and reactive. Extraocular motions intact. No scleral icterus. No injection or drainage. ENT: Nose without bleeding, purulent drainage or septal hematoma. Throat without erythema, tonsillar hypertrophy or exudate. Uvula midline. Airway patent. NECK: Trachea midline. No JVD or lymphadenopathy. Supple, nontender, no meningeal signs. CARDIOVASCULAR: Regular rate and rhythm. Grade 1 systolic murmur appreciated. RESPIRATORY: Clear to auscultation. Breath sounds equal bilaterally. No wheezes , rales, or rhonchi. GASTROINTESTINAL: Positive bowel sounds. Abdomen soft, diffusely tender, especially in the left lower quadrant. No hepato-splenomegaly, or palpable masses. MUSCULOSKELETAL: Extremities without clubbing, cyanosis, or lower extremity edema. Right arm with chronic lymphedema. NEUROLOGICAL: Awake and alert. Cranial nerves II through XII intact. Motor and sensory grossly within normal limits. Five out of 5 muscle strength in all muscle groups. Normal speech. PSYCH: Mood and affect appropriate. Laboratory Laboratory Tests Test 03/12/17 13:30 White Blood Count 11.6 Red Blood Count 4.03 Hemoglobin 12.5 Hematocrit 37.2 Mean Corpuscular Volume 92.3 Mean Corpuscular Hemoglobin 31.0 Mean Corpuscular Hemoglobin 33.6 Concent Red Cell Distribution Width 11.8 Platelet Count 236 Mean Platelet Volume 8.0 Neutrophils (%) (Auto) 79.1 Lymphocytes (%) (Auto) 10.7 Monocytes (%) (Auto) 9.2 Eosinophils (%) (Auto) 0.3 Basophils (%) (Auto) 0.7 Neutrophils # (Auto) 9.2 Lymphocytes # (Auto) 1.2 Monocytes # (Auto) 1.1 Eosinophils # (Auto) 0.0 Basophils # (Auto) 0.1 CBC Comment DIFF FINAL Differential Comment Sodium Level 137 Potassium Level 4.2 Chloride Level 98 Carbon Dioxide Level 27.4 Anion Gap 12 Blood Urea Nitrogen 17 Creatinine 0.95 Estimat Glomerular Filtration 56 Rate Random Glucose 98 Calcium Level 10.2 Total Bilirubin 1.0 Aspartate Amino Transf 18 (AST/SGOT) Alanine Aminotransferase 17 (ALT/SGPT) Alkaline Phosphatase 97 Total Protein 7.6 Albumin 3.3 Lipase 115 Result Diagram: 03/12/17 1330 03/12/17 1330 Imaging Last Impressions Abdomen/Pelvis CT 03/12/17 1242 Signed Impressions: Service Date/Time: Sunday, March 12, 2017 14:44 - CONCLUSION: 1. Inflammatory changes adjacent to the sigmoid colon. Wall thickening of the sigmoid colon. Multiple sigmoid colon diverticula. ndings suggest acute diverticulitis. No evidence of abscess or free air. 2. Nonobstructing left renal calculus. 3. 2.4 cm rounded left renal mass is not definitively characterize but statistically is likely to represent a cyst. 4. Cholelithiasis. No pericholecystic inflammatory changes. 5. Status post right nephrectomy. Ganga Bundy MD Assessment and Plan Assessment and Plan Acute diverticulitis The pt presented with lower abdominal pain. CT scan showed: Inflammatory changes adjacent to the sigmoid colon; Wall thickening of the sigmoid colon; Multiple sigmoid colon diverticula; Findings suggest acute diverticulitis; No evidence of abscess or free air. She had a leukocytosis of 11 on presentation. - Start IV ciprofloxacin and Flagyl. - Follow blood cultures. - Clear liquid diet for now. - IV fluids. - Pain control with a bowel regimen. - Antiemetics as needed. - outpt follow up with GI for further evaluation with colonoscopy. - start a PPI. Constipation The patient said she has not had a bowel movement in a couple of days. She does have bowel sounds. - Start bowel regimen and monitor. Urinary frequency The patient says she was recently tested for a UTI and that was negative. - Check another UA. - Continue oxybutynin. Hypertension Blood pressure exacerbated by pain. - Continue home medications. - Vasotec as needed Renal cyst CT revealed a 2.4 cm rounded left renal mass which is not definitively characterized but statistically is likely to represent a cyst. - outpt follow-up. PPx: SCDs. Code Status Full. Discussed Condition With Dr. Woodard, pt, pt's family, nurse. Physician Certification 2 Midnight Certification Type: Admission for Inpatient Services Order for Inpatient Services The services are ordered in accordance with Medicare regulations or non- Medicare payer requirements, as applicable. In the case of services not specified as inpatient-only, they are appropriately provided as inpatient services in accordance with the 2-midnight benchmark. Estimated LOS (days): 2 days is the estimated time the patient will need to remain in the hospital, assuming treatment plan goals are met and no additional complications. Post-Hospital Plan: Home David Mtz DO Mar 12, 2017 16:14
[2017-03-12] MEDS ORDERED: SENNOSIDES 8.6 MG TAB PO SCH (16:15)
[2017-03-12] MEDS ORDERED: ACETAMINOPHEN 325 MG TAB PO PRN ×2 (16:15)
[2017-03-12] MEDS ORDERED: NALOXONE HCL 0.4 MG/ML AMP IV PRN (16:15)
[2017-03-12] MEDS ORDERED: MORPHINE SULFATE 4 MG/ML INJ IV PRN (16:15)
[2017-03-12] MEDS ORDERED: ONDANSETRON HCL 4 MG/2 ML VIAL IVP PRN (16:15)
[2017-03-12] MEDS ORDERED: PANTOPRAZOLE SODIUM 40 MG VIAL IV PUSH SCH (17:00)
[2017-03-12] MEDS ORDERED: ENALAPRILAT 1.25 MG/ML VIAL IV PUSH PRN (17:00)
[2017-03-12] MEDS ORDERED: POLYETHYLENE GLYCOL 17 GM PKG PO ONE (17:00)
[2017-03-12] MEDS: LACTOBACILLUS ACIDOPHILUS TAB PO SCH (18:29)
[2017-03-12] MEDS: DOCUSATE SODIUM 100 MG CAP PO SCH ×2 (18:29→20:29)
[2017-03-12] MEDS: DEXT 5%-NACL 0.9% 1000 ML INJ 1,000 ML IV SCH (19:38)
[2017-03-12] MEDS ORDERED: OXYBUTYNIN CHLORIDE 5 MG TAB PO SCH (21:00)
[2017-03-12] MEDS ORDERED: SODIUM CHLORIDE 0.9% FLUSH 10 ML FLUSH IV FLUSH SCH (21:00)
[2017-03-13] VITALS: BP 144/84; PULSE 98; RESP 20; TEMP 98.6; O2SAT 96
[2017-03-13] MEDS ORDERED: metroNIDAZOLE 500 MG INJ 100 ML IV SCH
[2017-03-13] MEDS: DEXT 5%-NACL 0.9% 1000 ML INJ 1,000 ML IV SCH (01:42)
[2017-03-13] MEDS ORDERED: CIPROFLOXACIN 400 MG PREMIX 200 ML IV SCH (04:00)
[2017-03-13 06:43] LABS: AUTOMATED NEUTROPHIL # 6.8 TH/MM3 (1.8-7.7); BASOPHIL % 0.3 % (0.0-2.0); EOSINOPHIL # 0.2 TH/MM3 (0-0.4); EOSINOPHIL % 1.7 % (0.0-4.0); HEMATOCRIT 30.1 % (35.0-46.0); HEMO FLAGS DIFF FINAL; LYMPH % 17.4 % (9.0-44.0); LYMPHOCYTE # 1.7 TH/MM3 (1.0-4.8); MEAN CELL VOLUME 93.3 FL (80.0-100.0); MEAN CORPUSCULAR HEMOGLOBIN 31.3 PG (27.0-34.0); MEAN CORPUSCULAR HGB CONC 33.6 % (32.0-36.0); MONO % 11.1 % (0.0-8.0); NEUT % 69.5 % (16.0-70.0); PLATELET COUNT 192 TH/MM3 (150-450); RED BLOOD COUNT 3.22 MIL/MM3 (4.00-5.30); RED CELL DISTRIBUTION WIDTH 12.2 % (11.6-17.2); WHITE BLOOD COUNT 9.8 TH/MM3 (4.0-11.0)
[2017-03-13 06:55] LABS: CHLORIDE 101 MEQ/L (98-107); SODIUM (NA) 136 MEQ/L (136-145)
[2017-03-13 07:04] LABS: ALKALINE PHOSPHATASE 76 U/L (45-117); ALT (GPT) 12 U/L (10-53); ANION GAP 9 MEQ/L (5-15); AST (GOT) 16 U/L (15-37); BLOOD UREA NITROGEN 13 MG/DL (7-18); GLOMERULAR FILTRATION RATE 68 ML/MIN (>89); TOTAL BILIRUBIN ADULT 0.8 MG/DL (0.2-1.0)
[2017-03-13 08:00] VITALS: BP 133/76; PULSE 81; RESP 18; TEMP 98.1; O2SAT 95
--- NOTE | 2017-03-13 08:13 | HHI.PR ---
Subjective Remarks Patient seen and examined today with Dr. Mtz. Patient states that she is doing much better. She had a bowel movement with relief of her pain. Patient is tolerating liquids at this time. She is very eager to go home. She lost her IV access last evening does not want to have another one put in because she wants to go home. Upon evaluating her she states that she is much improved. She is tolerating diet. Will convert to by mouth medication and if tolerates well likely be able to discharge Objective Vitals Vital Signs Date Time Temp Pulse Resp B/P Pulse Ox O2 Delivery O2 Flow Rate FiO2 03/13/17 00:00 98.6 98 20 144/84 96 03/12/17 21:03 98.4 83 18 118/67 97 03/12/17 18:07 97.8 89 15 99/66 99 03/12/17 17:25 76 16 144/80 97 03/12/17 17:00 16 03/12/17 17:00 16 03/12/17 16:05 75 16 132/87 03/12/17 15:15 90 16 144/74 97 Room Air 03/12/17 15:00 16 03/12/17 14:00 94 16 120/73 98 Room Air 03/12/17 12:58 16 98 Room Air 03/12/17 12:57 16 03/12/17 11:56 98.2 82 15 137/82 99 I/O 03/12/17 03/12/17 03/12/17 03/13/17 03/13/17 03/13/17 07:00 15:00 23:00 07:00 15:00 23:00 Intake Total 540 ml 0 ml Balance 540 ml 0 ml Intake Oral 240 ml IV Total 300 ml 0 ml # Voids 2 3 # Bowel Movements 2 Result Diagram: 03/13/1730 03/13/17 0630 Objective Remarks GENERAL: Well-developed, well-nourished, in no acute distress. alert and orientated HEENT: Head is normocephalic without any lesions or masses noted. Facial features are symmetric. Eyes: Extraocular muscles are intact. Conjunctivae were clear. NECK: Supple without any masses. Trachea midline no deviation. No JVD, CARDIAC: Regular rhythm, regular rate. S1/S2 are heard. / ejection murmur, no gallops or rubs. LUNGS: Clear to auscultation bilaterally. No wheeze, rhonchi or rales. No use of accessory muscles on inspiration or expiration. ABDOMEN: Soft, nontender. Nondistended. Bowel sounds heard in all 4 quadrants. No organomegaly or masses. Negative rebound, negative guarding EXTREMITIES: No edema, pulses are equal bilaterally. No cyanosis or clubbing NEUROLOGY: Mood and affect appear appropriate. Cranial nerves II through XII grossly intact. Moving all extremities, speech is clear Urinary Catheter: No Vascular Central Line Catheter: No A/P Assessment and Plan Acute diverticulitis The pt presented with lower abdominal pain. CT scan showed: Inflammatory changes adjacent to the sigmoid colon; Wall thickening of the sigmoid colon; Multiple sigmoid colon diverticula; Findings suggest acute diverticulitis; No evidence of abscess or free air. She had a leukocytosis of 11 on presentation. - Patient lost IV access last night. Unable to give IV ciprofloxacin and Flagyl. Change to by mouth Cipro and Flagyl - Blood cultures pending at this time. NGTD. - diet advanced and pt tolerated well. - Discontinue IV fluids, do to no IV access - Pain control with a bowel regimen. - Antiemetics as needed. - outpt follow up with GI for further evaluation with colonoscopy. - Continue PPI. Constipation The patient said she has not had a bowel movement in a couple of days. She does have bowel sounds. - Continue bowel regimen and monitor. - Patient had bowel movement this morning with improvement of her abdominal pain Urinary frequency The patient says she was recently tested for a UTI and that was negative. - Urinalysis does not indicate any signs of infection. - Continue oxybutynin. Hypertension Blood pressure exacerbated by pain. - Continue home medications. - Vasotec as needed Renal cyst CT revealed a 2.4 cm rounded left renal mass which is not definitively characterized but statistically is likely to represent a cyst. - outpt follow-up. PPx: SCDs. Written by Terrence Correa, acting as scribe for Dr. Mtz on 03/13/17 at 08: 13. Discharge Planning Discharge home in stable condition if patient tolerates by mouth medication and diet Activity: Ad brandy. Diet: Healthy heart advance as tolerated Medications per medication reconciliation Follow-up primary medical doctor in one week. Follow-up with outpatient GI This note was transcribed by scribe Terrence Correa. I, Dr. David Mtz personally performed the history, physical exam, and medical decision making; and confirmed the accuracy of the information in the transcribed note. Authenticated by Dr. David Mtz on 03/13/17 at 13:15. Terrence Correa March 13, 2017 08:13 David Mtz DO March 13, 2017 13:16
[2017-03-13] MEDS ORDERED: ONDANSETRON ODT 4 MG TAB PO PRN (08:15)
[2017-03-13] MEDS ORDERED: FERROUS SULFATE 325 MG (65 MG ELEMENTAL IRON) TAB PO SCH (09:00)
[2017-03-13] MEDS ORDERED: ESCITALOPRAM OXALATE 10 MG TAB PO SCH (09:00)
[2017-03-13] MEDS ORDERED: amLODIPine BESYLATE 5 MG TAB PO SCH (09:00)
[2017-03-13] MEDS: DOCUSATE SODIUM 100 MG CAP PO SCH (09:19)
[2017-03-13] MEDS: LACTOBACILLUS ACIDOPHILUS TAB PO SCH ×2 (09:20→13:18)
[2017-03-13] MEDS: metroNIDAZOLE 500 MG TAB PO SCH ×2 (09:20→13:18)
[2017-03-13 12:00] VITALS: BP 130/72; PULSE 76; RESP 20; TEMP 97.8; O2SAT 95
[2017-03-13] MEDS ORDERED: CIPROFLOXACIN 500 MG TAB PO SCH (12:00)
[2017-03-13] MEDS ORDERED: METR-1 PO (13:01)
[2017-03-13] MEDS ORDERED: CIPR-9 PO (13:01)
[2017-03-13] MEDS ORDERED: PANT40TA3 PO (13:01)
[2017-03-13] MEDS ORDERED: LACT PO (13:01)
--- NOTE | 2017-03-13 13:01 | HHI.DCPOC ---
Discharge Care Plan Diagnosis: (1) Diverticulitis Your Health Problems Are: Appetite Changes Irregular Bowel Function Exercise Tolerance Goals to Promote Your Health * To prevent worsening of your condition and complications * To maintain your health at the optimal level Directions to Meet Your Goals Take your medications as prescribed Follow your dietary instruction Follow activity as directed Keep your appointments as scheduled Take your immunizations and boosters as scheduled If your symptoms worsen call your PCP, if no PCP go to Urgent Care Center or Emergency Room Smoking is Dangerous to Your Health. Avoid second hand smoke Call the 24-hour hour crisis hotline for domestic abuse at David Mtz DO March 13, 2017 13:01
--- NOTE | 2017-03-13 13:02 | HHI.FF ---
Face to Face Verification Diagnosis: (1) Diverticulitis (2) Weakness generalized Physical Therapy Order: Evaluate and Treat, Improve ambulation, Strength and gait training Home Health Nursing Order: Medical education Signs/symptoms of disease process Diabetic education Medication education-adverse effect Nursing assessment with vital signs I have seen patient Kala Mak on 03/13/17. My clinical findings support the need for the requested home health care services because: Deconditioned w/ increased weakness Med compliance is questionable Limited ability to care for self High risk of falls I certify that my clinical findings support that this patient is homebound because: Impaired cognitive ability/safety Unsteady gait/balance Unsafe to leave home unassisted David tMz DO March 13, 2017 13:02
[2017-03-13 13:36] LABS: BLOOD, URINE NEG (NEG); GLUCOSE,URINE NEG (NEG); KETONE, URINE NEG (NEG); NITRITE,URINE NEG (NEG)
[2017-03-13 13:59] LABS: COMMENT (UR) CULT NOT INDICATED; CULTURE IF INDICATED CULT NOT INDICATED; SQUAMOUS EPITHELIAL CELL URINE 0-5 /hpf (0-5); URINE COLOR YELLOW (YELLW/STRAW)
== END 2017-03-13 14:00 | disposition home health service (06) | DRG 392 ==
LOC: PHED 11:49 → PHEDA 15:43 → PH3A 17:26
PROVIDERS: ADMIT Hospitalist; ATTEND Hospitalist
DX: K57.32 Diverticulitis of large intestine without perforation or abscess without bleeding (principal); N28.1 Cyst of kidney, acquired; I10 Essential (primary) hypertension; K59.00 Constipation, unspecified; J45.909 Unspecified asthma, uncomplicated; R35.0 Frequency of micturition; Z85.3 Personal history of malignant neoplasm of breast; Z85.528 Personal history of other malignant neoplasm of kidney; Z92.3 Personal history of irradiation; Z92.21 Personal history of antineoplastic chemotherapy; Z88.5 Allergy status to narcotic agent; Z88.0 Allergy status to penicillin; Z88.2 Allergy status to sulfonamides; Z88.8 Allergy status to other drugs, medicaments and biological substances
CPT/HCPCS: 74176; 80053; 81001; 83690; 85025; 87040; C9113; J0744; J2270; J2405; J7042

== ENCOUNTER 2017-05-25 11:56 | Inpatient (IN) | payer MEDICARE, OTHER ==
[~2017-05-25] VITALS: Ht 154.9 cm; Wt 64.8 kg
[2017-05-25] VITALS (10 sets, daily range): BP systolic 134–226; BP diastolic 81–130; PULSE 73–95; RESP 16–18; TEMP 98–98.3; O2SAT 95–100
[~2017-05-25 11:56] MED LIST changes: +AMLO5TAB2 PO; -B12-1CHW CHEW; +CIPR-9 PO; -COLA100C3 PO; -DOXY100C PO; +LACT PO; -LOSARTAN 50 MG TAB PO SCH; +MAGN1TAB14 PO; +MELA3CAP PO; -MELA5TAB15 PO; +MELAPOW2 PO; +METR-1 PO; +PANT40TA3 PO; +STOO100C PO
--- NOTE | 2017-05-25 12:02 | PD ---
Physical Exam Time Seen by Provider: 12:00 Narrative 81 y/o female here for evaluation of confusion for one week and back pain/hip pain. Vital signs reviewed. Seen at triage desk. Awaiting bed placement. Data Data Last Documented VS Vital Signs Date Time Temp Pulse Resp B/P Pulse Ox O2 Delivery O2 Flow Rate FiO2 05/25/17 11:58 98.3 95 18 226/130 95 Room Air [facility] Medical Record Reviewed: Yes Supervised Visit with EDGAR: Porter Harris May 25, 2017 12:02
[2017-05-25] MEDS ORDERED: NIFEdipine 10 MG CAP PO ONE (13:30)
[2017-05-25] MEDS ORDERED: ESCI20TA PO (13:31)
[2017-05-25] MEDS ORDERED: MELA3TAB PO (13:31)
[2017-05-25] MEDS ORDERED: MECL-62 PO (13:31)
[2017-05-25 13:34] LABS: AUTOMATED NEUTROPHIL # 7.5 TH/MM3 (1.8-7.7); BASOPHIL % 0.3 % (0.0-2.0); EOSINOPHIL % 0.2 % (0.0-4.0); HEMO FLAGS DIFF FINAL; LYMPH % 5.6 % (9.0-44.0); LYMPHOCYTE # 0.5 TH/MM3 (1.0-4.8); MEAN CELL VOLUME 91.7 FL (80.0-100.0); MEAN CORPUSCULAR HEMOGLOBIN 31.5 PG (27.0-34.0); MEAN CORPUSCULAR HGB CONC 34.3 % (32.0-36.0); MONO % 7.2 % (0.0-8.0); NEUT % 86.7 % (16.0-70.0); PLATELET COUNT 215 TH/MM3 (150-450); RED BLOOD COUNT 4.48 MIL/MM3 (4.00-5.30); RED CELL DISTRIBUTION WIDTH 13.1 % (11.6-17.2); WHITE BLOOD COUNT 8.6 TH/MM3 (4.0-11.0)
[2017-05-25 13:46] LABS: APTT (PATIENT) 28.4 SEC (24.3-30.1); PROTHROMBIN TIME - PATIENT 10.9 SEC (9.8-11.6)
--- NOTE | 2017-05-25 13:57 | PD ---
HPI Chief Complaint: Altered Mental Status Time Seen by Provider: 13:13 Travel History International Travel<30 days: No Contact w/Intl Traveler<30days: No Traveled to known affect area: No History of Present Illness HPI This patient is brought in by her son. She complains of pain in the right buttock area. Duration one week. No fall or injury. No radiation down the leg. No neurologic complaint. She usually ambulance with a walker but for the last week she has been wheelchair-bound. Severity is moderate. No alleviating factors. She has some generalized weakness and according to the son is starting to fail to thrive. He is not doing much but lying in a bed and not eating. She has times of confusion. He doesn't feel she can safely live at home anymore. He is visiting from another state but she lives with the son the sister who works during the day. PFSH Past Medical History Arthritis: Yes Asthma: Yes Autoimmune Disease: No Blood Disorders: No Anxiety: No Depression: No Heart Rhythm Problems: No Cardiovascular Problems: No High Cholesterol: No Chemotherapy: Yes Chest Pain: No Congestive Heart Failure: No COPD: Yes Cerebrovascular Accident: No Diabetes: No Diminished Hearing: Yes Endocrine: No GERD: Yes Glaucoma: No Genitourinary: No Headaches: No Hepatitis: No Hiatal Hernia: No Hypertension: Yes Immune Disorder: No Implanted Vascular Access Dvce: Yes Kidney Stones: No Musculoskeletal: Yes Neurologic: No Psychiatric: No Reproductive: No Respiratory: Yes Integumentary: Yes (hx of having RIGHT ARM CELLULITIS) Immunizations Current: Yes Migraines: No Myocardial Infarction: No Radiation Therapy: No Renal Failure: No Seizures: No Sickle Cell Disease: No Sleep Apnea: No Thyroid Disease: No Ulcer: No PNEUMOCCOCAL Vaccine (Year): 1 Menopausal: Yes : 3 Para: 3 Past Surgical History Abdominal Surgery: Yes AICD: No Appendectomy: Yes Arteriovenous Shunt: No Body Medical Devices: POSSIBLE MESH TO RIGHT GROIN Cardiac Surgery: No Section: Yes (3) Cholecystectomy: No Ear Surgery: No Endocrine Surgery: Yes (kidney removed 2003) Eye Surgery: No Genitourinary Surgery: No Gynecologic Surgery: Yes (hysterectomy) Hysterectomy: Yes Insulin Pump: No Joint Replacement: Yes (bilat knees & right hip IM nail) Mastectomy: Yes (right side ) Neurologic Surgery: No Oral Surgery: No Pacemaker: No Thoracic Surgery: No Other Surgery: Yes (RIGHT MASTECTOMY 1996) Social History Alcohol Use: No Tobacco Use: No (quit 30+ yrs ago-hx of social smoker) Substance Use: No Allergies-Medications (Allergen,Severity, Reaction): Coded Allergies: Demerol (Verified Allergy, Severe, 03/12/17) Niacin (Verified Allergy, Severe, RASH, 03/12/17) Penicillin (Verified Allergy, Severe, SKIN PEALED, 03/12/17) Sulfa (Verified Allergy, Severe, 03/12/17) Iodine (Verified Allergy, Unknown, unknown, 03/12/17) Pt was told never to use Iodine Uncoded Allergies: generic Benicar (Adverse Reaction, Severe, Hypertension, 03/12/17) . Reported Meds & Prescriptions Reported Meds & Active Scripts Active Pantoprazole (Pantoprazole Sodium) 40 Mg Tab 40 Mg PO DAILY Reported Meclizine (Meclizine HCl) 25 Mg Tab 25 Mg PO BID PRN Melatonin 3 Mg Tab 3 Mg PO HS PRN Escitalopram (Escitalopram Oxalate) 20 Mg Tab 20 Mg PO DAILY Amlodipine (Amlodipine Besylate) 5 Mg Tab 5 Mg PO DAILY Stool Softener (Docusate Sodium) 100 Mg Cap 1 Cap PO DAILY PRN Magnesium 400 Mg Tab 400 Mg PO DAILY Ditropan (Oxybutynin Chloride) 5 Mg Tab 5 Mg PO HS Benicar (Olmesartan) 40 Mg Tab 40 Mg PO DAILY Review of Systems General / Constitutional: No: Fever Eyes: No: Visual changes HENT: No: Headaches Cardiovascular: No: Chest Pain or Discomfort Respiratory: No: Shortness of Breath Gastrointestinal: No: Abdominal Pain Genitourinary: No: Dysuria Musculoskeletal: Positive: Weakness, Pain Skin: No Rash Neurologic: Positive: Weakness Psychiatric: No: Depression Endocrine: No: Polydipsia Hematologic/Lymphatic: No: Easy Bruising Physical Exam Narrative GENERAL: Thin elderly weakened demented patient in no apparent distress. SKIN: Focused skin assessment reveals no rash and nodules. Skin is Warm and dry. HEAD: Atraumatic. Normocephalic. EYES: Pupils equal and round. No scleral icterus. No injection or drainage. ENT: No nasal bleeding or discharge. Mucous membranes pink and moist. NECK: Trachea midline. No JVD. CARDIOVASCULAR: Regular rate and rhythm. No murmur appreciated. RESPIRATORY: No accessory muscle use. Clear to auscultation. Breath sounds equal bilaterally. GASTROINTESTINAL: Abdomen soft, non-tender, nondistended. Hepatic and splenic margins not palpable. MUSCULOSKELETAL: No obvious deformities. No clubbing. No cyanosis. No edema. No midline tenderness of the back. Good range of motion of hips. No long bone tenderness. She has some tenderness to the left upper buttock area without objective finding NEUROLOGICAL: Awake and alert. No obvious cranial nerve deficits. Motor grossly within normal limits. Normal speech. PSYCHIATRIC: Appropriate mood and affect; insight and judgment reduced from dementia Data Data Last Documented VS Vital Signs Date Time Temp Pulse Resp B/P Pulse Ox O2 Delivery O2 Flow Rate FiO2 05/25/17 18:18 97 21 05/25/17 14:00 88 16 176/81 Room Air 05/25/17 11:58 98.3 Orders Complete Blood Count With Diff (05/25/17 12:02) Comprehensive Metabolic Panel (05/25/17 12:02) Prothrombin Time / Inr (Pt) (05/25/17 12:02) Act Partial Throm Time (Ptt) (05/25/17 12:02) Urinalysis - C+S If Indicated (05/25/17 12:02) Cath For Specimen (05/25/17 12:04) Nifedipine (Procardia) (05/25/17 13:30) Pelvis, Ap Only (Routine) (05/25/17 ) Urine Culture (05/25/17 14:00) Ct Pelvis W/O Iv Contrast (05/25/17 ) Place In Observation (05/25/17 ) Code Status (05/25/17 18:02) Vital Signs (Adult) TALIA.Q4H (05/25/17 18:02) Activity Oob With Assistance (05/25/17 18:02) Resp Oxygen Spenser C Titrat 1-4 L (05/25/17 ) Sodium Chloride 0.9% Flush (Ns Flush) (05/25/17 18:15) Sodium Chloride 0.9% Flush (Ns Flush) (05/25/17 21:00) Urinary Catheter Management TALIA.Q8H (05/25/17 18:02) Admit Order (Ed Use Only) (05/25/17 18:27) Labs Laboratory Tests Test 05/25/17 05/25/17 13:00 14:00 White Blood Count 8.6 TH/MM3 Red Blood Count 4.48 MIL/MM3 Hemoglobin 14.1 GM/DL Hematocrit 41.0 % Mean Corpuscular Volume 91.7 FL Mean Corpuscular Hemoglobin 31.5 PG Mean Corpuscular Hemoglobin 34.3 % Concent Red Cell Distribution Width 13.1 % Platelet Count 215 TH/MM3 Mean Platelet Volume 8.8 FL Neutrophils (%) (Auto) 86.7 % Lymphocytes (%) (Auto) 5.6 % Monocytes (%) (Auto) 7.2 % Eosinophils (%) (Auto) 0.2 % Basophils (%) (Auto) 0.3 % Neutrophils # (Auto) 7.5 TH/MM3 Lymphocytes # (Auto) 0.5 TH/MM3 Monocytes # (Auto) 0.6 TH/MM3 Eosinophils # (Auto) 0.0 TH/MM3 Basophils # (Auto) 0.0 TH/MM3 CBC Comment DIFF FINAL Differential Comment Prothrombin Time 10.9 SEC Prothromb Time International 1.0 RATIO Ratio Activated Partial 28.4 SEC Thromboplast Time Sodium Level 134 MEQ/L Potassium Level 3.8 MEQ/L Chloride Level 103 MEQ/L Carbon Dioxide Level 24.1 MEQ/L Anion Gap 7 MEQ/L Blood Urea Nitrogen 22 MG/DL Creatinine 0.88 MG/DL Estimat Glomerular Filtration 61 ML/MIN Rate Random Glucose 124 MG/DL Calcium Level 10.9 MG/DL Total Bilirubin 1.2 MG/DL Aspartate Amino Transf 24 U/L (AST/SGOT) Alanine Aminotransferase 22 U/L (ALT/SGPT) Alkaline Phosphatase 124 U/L Total Protein 7.6 GM/DL Albumin 3.5 GM/DL Urine Color YELLOW Urine Turbidity CLEAR Urine pH 6.0 Urine Specific [place] 1.025 Urine Protein 100 mg/dL Urine Glucose (UA) NEG mg/dL Urine Ketones 10 mg/dL Urine Occult Blood NEG Urine Nitrite NEG Urine Bilirubin NEG Urine Urobilinogen LESS THAN 2.0 MG/DL Urine Leukocyte Esterase NEG Urine RBC LESS THAN 1 /hpf Urine WBC 1 /hpf Urine Squamous Epithelial <1 /hpf Cells Urine Bacteria RARE /hpf Urine Mucus FEW /lpf Microscopic Urinalysis Comment CATH-CULTURE IND MDM Medical Decision Making Medical Screen Exam Complete: Yes Emergency Medical Condition: Yes Medical Record Reviewed: Yes Differential Diagnosis Sciatica, pelvic fracture, back strain Narrative Course I have reviewed the patient's electronic medical record. Patient had CT of abdomen and pelvis 2 months ago with normal diameter aorta and no aneurysm Patient with accelerated hypertension. Dose of Procardia given and will reassess pressure IV placed CBC is normal Metabolic profile is normal Catheterized urine is clean I reviewed her pelvis x-ray which suggest the possibility of sacral insufficiency fracture CT of the pelvis was done to evaluate this. She does have an acute sufficiency fracture of the right sacrum. This is exactly where she has pain. Unfortunately this point she is fully debilitated and unable to walk and is bedbound and failing to thrive. She will require shelter placement. Unfortunately will require 3 days in the hospital and making her an observation when we know she will be here 3 days does not seem indicated. I reviewed with medical residents who will hospitalize her Diagnosis Primary Impression: Sacral insufficiency fracture Qualified Code: M84.48XA - Sacral insufficiency fracture, initial encounter Additional Impressions: Failure to thrive in adult Inability to ambulate due to multiple joints Admitting Information Admitting Physician Requests: Admit Terrence Castro MD May 25, 2017 13:57
[2017-05-25 13:59] LABS: ANION GAP 7 MEQ/L (5-15); BICARBONATE 24.1 MEQ/L (21.0-32.0); BLOOD UREA NITROGEN 22 MG/DL (7-18); CHLORIDE 103 MEQ/L (98-107); GLOMERULAR FILTRATION RATE 61 ML/MIN (>89); POTASSIUM 3.8 MEQ/L (3.5-5.1); SODIUM (NA) 134 MEQ/L (136-145)
[2017-05-25 14:01] LABS: ALT (GPT) 22 U/L (10-53); AST (GOT) 24 U/L (15-37)
[2017-05-25 14:03] LABS: ALKALINE PHOSPHATASE 124 U/L (45-117); TOTAL BILIRUBIN ADULT 1.2 MG/DL (0.2-1.0)
[2017-05-25 14:17] LABS: BACTERIA, URINE RARE /hpf; BLOOD, URINE NEG (NEG); COMMENT (UR) CATH-CULTURE IND; CULTURE IF INDICATED CATH CULTURE IND; GLUCOSE,URINE NEG (NEG); KETONE, URINE 10 mg/dL (NEG); MUCUS URINE FEW /lpf (OCC); NITRITE,URINE NEG (NEG); SQUAMOUS EPITHELIAL CELL URINE <1 /hpf (0-5); URINE COLOR YELLOW (YELLW/STRAW)
--- NOTE | 2017-05-25 14:17 | RADRPT ---
EXAM DATE/TIME: 05/25/2017 13:51 [facility] COMPARISON: CT ABDOMEN & PELVIS W/O CONTRAST, March 12, 2017, 14:44. INDICATIONS : Minor fall with subsequent long-distance car trip. Right posterior pelvic pain. MEDICAL HISTORY : Chronic obstructive pulmonary disease. Gastroesophageal reflux disease. Hypertension. Right breas t cancer. Right renal cancer. SURGICAL HISTORY : Appendectomy. Hysterectomy. section. Right nephrectomy. Right mastectomy. Right hip fracture repair. ENCOUNTER: Initial ACUITY: 3 days PAIN SCORE: 7/10 LOCATION: Right posterior pelvis FINDINGS: 2 frontal views of the pelvis show diffuse osteopenia. There is a linear lucency paralleling the SI j oint on the right involving the sacral ala. The remaining bony structures are intact. The femoral nec k screw and short intramedullary jovanny are noted on the right. Atherosclerotic ulcerations are seen. A normal bowel gas pattern is noted. CONCLUSION: 1. Concern for sacral insufficiency fracture on the right. Consider CT to further evaluate. 2. Osteopenia. Russ Nice Jr., MD on May 25, 2017 at 14:09 Board Certified Radiologist. This report was verified electronically.
--- NOTE | 2017-05-25 16:25 | RADRPT ---
EXAM DATE/TIME: 05/25/2017 15:38 [facility] COMPARISON: CT ABDOMEN & PELVIS W/O CONTRAST, March 12, 2017, 14:44. INDICATIONS : Evaluate for sacral fracture; pain. ORAL CONTRAST: No oral contrast ingested. RADIATION DOSE: 6.19 CTDIvol (mGy) MEDICAL HISTORY : Hypertension. Carcinoma, breast. SURGICAL HISTORY : Hysterectomy. Appendectomy. ENCOUNTER: Initial ACUITY: 1 day PAIN SCALE: 5/10 LOCATION: Bilateral pelvis TECHNIQUE: Volumetric scanning of the pelvis was performed. Using automated exposure control and adjustment of the mA and/or kV according to patient size, radiation dose was kept as low as reasonably achievable t o obtain optimal diagnostic quality images. DICOM format image data is available electronically for review and comparison. FINDINGS: Diffuse osteopenia. A vertical lucency is seen involving the right sacral ala consistent with a sacra l insufficiency fracture. This is new from the prior study. The remaining bony structures are intact. A femoral neck screw with intramedullary jovanny is seen on the right. A 3.4 x 2.5 cm low-density lesion is seen within the right inguinal region. Hounsfield units are 4. Stable from the prior study. The r ight kidney is surgically absent. Colonic diverticuli without acute inflammation. Chavis balloon prese nt within the urinary bladder which is decompressed. Heavily calcified atherosclerotic plaque through out the aorta and inflow vessels. CONCLUSION: 1. Acute right sacral insufficiency fracture. 2. 3.4 x 2.5 cm low-density lesion involving the right inguinal region. This is poorly characterize o n this unenhanced study. The Hounsfield units are approaching that of water and this may relate to a cyst or seroma. It is stable in the short interval from the prior study. 3. Colonic diverticulosis. 4. Absence of the right kidney. Russ Nice Jr., MD on May 25, 2017 at 16:15 Board Certified Radiologist. This report was verified electronically.
[2017-05-25] MEDS ORDERED: SODIUM CHLORIDE 0.9% FLUSH 10 ML FLUSH IV FLUSH PRN ×2 (18:15→19:45)
--- NOTE | 2017-05-25 18:23 | HHI.HP ---
[facility] Service Family Medicine Primary Care Physician Marvel Huertas MD Admission Diagnosis Sacral insufficiency fracture Diagnoses: Chief Complaint: Right buttock pain International Travel<30 Days: No Contact w/Intl Traveler<30days: No Known Affected Area: No History of Present Illness Patient is an 81-year-old woman who presents with 4 days of immobilizing right buttock pain found to have a sacral insufficiency fracture on CT scan. The patient is accompanied by her son who provides the history. Her pain started about 4 days ago after getting back from a long car ride. It is not normal for her to be in pain. She took half a tramadol last night without relief. Her pain has been so bad that she was immobile, couldn't stand, sit, or walk. She was walking last week. She usually walks with a walker. Her blood pressure has also been elevated as high as 204/110 for last 4 days. Normally, she is very lucid and alert and oriented. She is currently altered. For example, she didn't recognize her neighborhood. She has been incontinent. She couldn't sleep through the night. Today, she couldn't feed herself because she couldn't hold a cup or spoon. She lives with daughter. She has base remover care when the daughter leaves the house. She may have fallen recently, but it wasn't a hard fall. They deny any significant trauma. Dr. Robin is her orthopedic surgeon. Dr. Huertas is her primary care doctor. She knows her name. She doesn't know date, but she knows where she is and why she is here. Review of Systems ROS Limitations: Clinical Condition (patient is altered, tangential, and drowsy , falling asleep during the interview), Altered Mental Status (patient is altered, tangential, and drowsy, falling asleep during the interview) Respiratory: DENIES: Shortness of breath Cardiovascular: DENIES: Chest pain Musculoskeletal: COMPLAINS OF: Muscle aches Past Family Social History Past Medical History Cellulitis Hypertension Asthma Bronchitis Breast cancer status post radiation/surgery/chemotherapy Chronic lymphedema of the right arm Renal cancer misdiagnosed? Past Surgical History Renal cancer misdiagnosed? status post right nephrectomy Bilateral knee replacements Right hip surgery Reported Medications Reported Meds & Active Scripts Active Pantoprazole (Pantoprazole Sodium) 40 Mg Tab 40 Mg PO DAILY - no Reported Meclizine (Meclizine HCl) 25 Mg Tab 25 Mg PO BID PRN Melatonin 3 Mg Tab 3 Mg PO HS PRN Escitalopram (Escitalopram Oxalate) 20 Mg Tab 20 Mg PO DAILY Amlodipine (Amlodipine Besylate) 5 Mg Tab 5 Mg PO DAILY Stool Softener (Docusate Sodium) 100 Mg Cap 1 Cap PO DAILY PRN Magnesium 400 Mg Tab 400 Mg PO DAILY Ditropan (Oxybutynin Chloride) 5 Mg Tab 5 Mg PO HS - stop Benicar (Olmesartan) 40 Mg Tab 40 Mg PO DAILY Allergies: Coded Allergies: Demerol (Verified Allergy, Severe, 03/12/17) Niacin (Verified Allergy, Severe, RASH, 03/12/17) Penicillin (Verified Allergy, Severe, SKIN PEALED, 03/12/17) Sulfa (Verified Allergy, Severe, 03/12/17) Iodine (Verified Allergy, Unknown, unknown, 03/12/17) Pt was told never to use Iodine Uncoded Allergies: generic Benicar (Adverse Reaction, Severe, Hypertension, 03/12/17) . Active Ordered Medications Current Medications Medications (Trade) Dose Ordered Sig/Bernadette Route Start Time Stop Time Status Last Admin (NS 1000 ml Inj) 1,000 ml @ 100 mls/hr Q10H IV 05/25/17 21:00 05/25/17 21:33 (NS Flush) 2 ml UNSCH PRN IV FLUSH 05/25/17 19:45 (NS Flush) 2 ml BID IV FLUSH 05/25/17 21:00 05/25/17 21:34 (Tylenol) 650 mg Q4H PRN PO 05/25/17 19:45 (Zofran Inj) 4 mg Q6H PRN IVP 05/25/17 19:45 (Ambien) 5 mg HS PRN PO 05/25/17 19:45 (Lovenox Inj) 40 mg Q24H SQ 05/25/17 21:00 05/25/17 21:34 (Narcan Inj) 0.4 mg UNSCH PRN IV 05/25/17 19:45 (Imelda-Colace) 1 tab BID PO 05/25/17 21:00 05/25/17 21:34 (Milk Of Magnesia Liq) 30 ml Q12H PRN PO 05/25/17 19:45 (Senokot) 17.2 mg Q12H PRN PO 05/25/17 19:45 (Dulcolax Supp) 10 mg DAILY PRN RECTAL 05/25/17 19:45 (Lactulose Liq) 30 ml DAILY PRN PO 05/25/17 19:45 (Motrin) 400 mg Q6H PRN PO 05/25/17 19:45 (Toradol Inj) 15 mg Q6H PRN IVP 05/25/17 19:45 05/30/17 19:44 (Toradol Inj) 30 mg Q6H PRN IVP 05/25/17 19:45 05/30/17 19:44 05/25/17 20:38 (Ofirmev Inj) 1,000 mg Q6H IV 05/25/17 21:00 05/26/17 15:01 05/25/17 21:33 (Morphine Inj) 4 mg Q3H PRN IV PUSH 05/25/17 23:45 05/26/17 00:15 (Catapres) 0.1 mg Q6H PRN PO 05/26/17 00:30 (Apresoline) 10 mg QID PRN PO 05/26/17 00:30 Family History CAD Emphysema Social History She lives with daughter. She has base remover care when the daughter leaves the house. The patient does not smoke or drink. Physical Exam Vital Signs Vital Signs Date Time Temp Pulse Resp B/P Pulse Ox O2 Delivery O2 Flow Rate FiO2 05/25/17 18:18 97 21 05/25/17 14:00 88 16 176/81 98 Room Air 05/25/17 13:31 76 16 187/84 97 Room Air 05/25/17 13:24 97 Room Air 05/25/17 11:58 98.3 95 18 226/130 95 Room Air Physical Exam GENERAL: This is a well-nourished, well-developed elderly female patient, who appears to be in pain. SKIN: No rashes, ecchymoses or lesions. Cool and dry. HEAD: Atraumatic. Normocephalic. EYES: Pupils equal round and reactive. Extraocular motions intact. No scleral icterus. No injection or drainage. ENT: Nose without bleeding, purulent drainage or septal hematoma. Throat without erythema, tonsillar hypertrophy or exudate. Uvula midline. Airway patent. NECK: Trachea midline. No JVD or lymphadenopathy. Supple, nontender, no meningeal signs. CARDIOVASCULAR: Regular rate and rhythm without murmurs, gallops, or rubs. RESPIRATORY: Clear to auscultation. Breath sounds equal bilaterally. No wheezes , rales, or rhonchi. GASTROINTESTINAL: Abdomen soft, non-tender, nondistended. No hepato-splenomegaly , or palpable masses. No guarding. MUSCULOSKELETAL: Patient tender to palpation of right buttock. Extremities without clubbing, cyanosis, or edema. No joint tenderness, effusion, or edema noted. No calf tenderness. NEUROLOGICAL: Awake and alert and oriented to person, place, situation, but not time. Cranial nerves II through XII intact. Motor and sensory within normal limits. Five out of 5 muscle strength in all muscle groups. Normal speech. Laboratory Laboratory Tests Test 05/25/17 05/25/17 13:00 14:00 White Blood Count 8.6 Red Blood Count 4.48 Hemoglobin 14.1 Hematocrit 41.0 Mean Corpuscular Volume 91.7 Mean Corpuscular Hemoglobin 31.5 Mean Corpuscular Hemoglobin 34.3 Concent Red Cell Distribution Width 13.1 Platelet Count 215 Mean Platelet Volume 8.8 Neutrophils (%) (Auto) 86.7 Lymphocytes (%) (Auto) 5.6 Monocytes (%) (Auto) 7.2 Eosinophils (%) (Auto) 0.2 Basophils (%) (Auto) 0.3 Neutrophils # (Auto) 7.5 Lymphocytes # (Auto) 0.5 Monocytes # (Auto) 0.6 Eosinophils # (Auto) 0.0 Basophils # (Auto) 0.0 CBC Comment DIFF FINAL Differential Comment Prothrombin Time 10.9 Prothromb Time International 1.0 Ratio Activated Partial 28.4 Thromboplast Time Sodium Level 134 Potassium Level 3.8 Chloride Level 103 Carbon Dioxide Level 24.1 Anion Gap 7 Blood Urea Nitrogen 22 Creatinine 0.88 Estimat Glomerular Filtration 61 Rate Random Glucose 124 Calcium Level 10.9 Total Bilirubin 1.2 Aspartate Amino Transf 24 (AST/SGOT) Alanine Aminotransferase 22 (ALT/SGPT) Alkaline Phosphatase 124 Total Protein 7.6 Albumin 3.5 Urine Color YELLOW Urine Turbidity CLEAR Urine pH 6.0 Urine Specific Isabel[place] 1.025 Urine Protein 100 Urine Glucose (UA) NEG Urine Ketones 10 Urine Occult Blood NEG Urine Nitrite NEG Urine Bilirubin NEG Urine Urobilinogen LESS THAN 2.0 Urine Leukocyte Esterase NEG Urine RBC LESS THAN 1 Urine WBC 1 Urine Squamous Epithelial <1 Cells Urine Bacteria RARE Urine Mucus FEW Microscopic Urinalysis Comment CATH-CULTURE IND Date/Time Procedure Status Source Growth 05/25/17 14:00 Urine Culture Received Urine Catheterized Urine Pending Result Diagram: 05/25/17 1300 05/25/17 1300 Imaging Last Impressions Pelvis X-Ray 05/25/17 0000 Signed Impressions: Service Date/Time: May 13:51 - CONCLUSION: 1. Concern for sacral insufficiency fracture on the right. Consider CT to further evaluate. 2. Osteopenia. Russ Nice Jr., MD Pelvis CT 05/25/17 0000 Signed Impressions: Service Date/Time: May 15:38 - CONCLUSION: 1. Acute right sacral insufficiency fracture. 2. 3.4 x 2.5 cm low-density lesion involving the right inguinal region. This is poorly characterize on this unenhanced study. The Hounsfield units are approaching that of water and this may relate to a cyst or seroma. It is stable in the short interval from the prior study. 3. Colonic diverticulosis. 4. Absence of the right kidney. Russ Nice Jr., MD Course In the emergency department, patient had UA, a PTT, PT/INR, Assessment and Plan Assessment and Plan Patient is an 81-year-old woman who presents with 4 days of immobilizing right buttock pain found to have a sacral insufficiency fracture on CT scan. We will place in observation for pain control and PT consult with early mobilization. She also needs IV fluids because of her inability to feed herself. Code Status Full code Discussed Condition With w/d/w Dr. Hsu. Problem List: (1) Sacral insufficiency fracture Status: Acute Plan: Patient is an 81-year-old woman who presents with 4 days of immobilizing right buttock pain found to have a sacral insufficiency fracture on CT scan. We will place in observation for pain control and PT consult with early mobilization. She also needs IV fluids because of her inability to feed herself. Also, patient's altered mental status is likely secondary to pain. Maintenance IV fluids with normal saline IV Monitor BMP, CBC Acetaminophen 1 g IV every 6 hours Ibuprofen 400 mg by mouth every 6 hours when necessary for pain 1-2 Toradol 15 mg IV push every 6 hours when necessary for pain 3-5 Toradol 30 mg IV push every 6 hours when necessary for pain 6-10 Morphine 4 mg IV every 3 hours when necessary for breakthrough pain Imelda-Colace one tab by mouth twice a day and other anticonstipation medications as needed for constipation Zofran 4 mg IV push every 6 hours when necessary for nausea or vomiting Vitamin D level. Will initiate calcium and vitamin D pending results Encourage early ambulation, out of bed with assistance, PT consult Monitor vital signs Given the patient is currently not ambulating, we will initiate DVT prophylaxis with Lovenox 40 mg subcutaneous daily (2) Hypertension Status: Chronic Plan: Patient has been hypertensive recently to his high as 200s over 110s. Continue home medications of amlodipine 5 mg by mouth daily Patient's family wants her to take her home medication of Benicar because they think she had a bad reaction to the hospital's generic Benicar Clonidine 0.1 mg by mouth every 6 hours when necessary for blood pressure over 170/100 Hydralazine 10 mg by mouth 4 times a day when necessary for blood pressure over 180/110 Instructed nurse to assess pain prior to giving antihypertensives as needed (3) FEN, ppx, chronic problems Status: Acute Plan: Fluids: Maintenance IV fluids with normal saline IV Electrolytes: Monitor and replete Nutrition: Regular basic diet DVT prophylaxis: Lovenox as above GI prophylaxis: Continue patient's home medication pantoprazole 40 mg by mouth daily Chronic medical conditions: Continue patient's home medication of Lexapro 20 mg by mouth daily Continue patient's home medication of magnesium as a nutritional supplement Continue patient's home medication meclizine when necessary for vertigo Continue patient's home medication of melatonin when necessary for insomnia/ sleep Problem Qualifiers (1) Sacral insufficiency fracture: Qualified Code: M84.48XA - Sacral insufficiency fracture, initial encounter David Carvajal MD R1 May 25, 2017 18:23
[2017-05-25] MEDS ORDERED: LACTULOSE SYRUP 20 GM/30 ML CUP PO PRN (19:45)
[2017-05-25] MEDS ORDERED: ZOLPIDEM TARTRATE 5 MG TAB PO PRN (19:45)
[2017-05-25] MEDS ORDERED: NALOXONE HCL 0.4 MG/ML AMP IV PRN ×2 (19:45)
[2017-05-25] MEDS ORDERED: IBUPROFEN 400 MG TAB PO PRN (19:45)
[2017-05-25] MEDS ORDERED: ONDANSETRON HCL 4 MG/2 ML VIAL IVP PRN (19:45)
[2017-05-25] MEDS ORDERED: KETOROLAC TROMETHAMINE 30 MG/ML (IVP) VIAL IVP PRN ×2 (19:45)
[2017-05-25] MEDS ORDERED: MORPHINE SULFATE 4 MG/ML INJ IV PRN (19:45)
[2017-05-25] MEDS ORDERED: BISACODYL 10 MG SUPP RECTAL PRN (19:45)
[2017-05-25] MEDS ORDERED: SENNOSIDES 8.6 MG TAB PO PRN (19:45)
[2017-05-25] MEDS ORDERED: MAGNESIUM HYDROXIDE SUSP 30 ML CUP PO PRN (19:45)
[2017-05-25] MEDS ORDERED: SODIUM CHLORIDE 0.9% FLUSH 10 ML FLUSH IV FLUSH SCH (21:00)
[2017-05-25] MEDS: ACETAMINOPHEN 1000 MG/100 ML VIAL IV SCH (21:33)
[2017-05-25] MEDS: SODIUM CHLOR 0.9% 1000 ML INJ 1,000 ML IV SCH (21:33)
[2017-05-25] MEDS: SODIUM CHLORIDE 0.9% FLUSH 10 ML FLUSH IV FLUSH SCH (21:34)
[2017-05-25] MEDS: ENOXAPARIN SODIUM 40 MG/0.4 ML SYRINGE SQ SCH (21:34)
[2017-05-25] MEDS: DOCUSATE SODIUM 50 MG/SENNA 8.6 MG TAB PO SCH (21:34)
[2017-05-25] MEDS ORDERED: MORPHINE SULFATE 8 MG/ML INJ IV PUSH PRN (23:45)
[2017-05-26] VITALS (17 sets, daily range): BP systolic 108–184; BP diastolic 59–110; PULSE 62–100; RESP 12–22; TEMP 97–98.4; O2SAT 91–100
[2017-05-26] MEDS ORDERED: cloNIDine HCL 0.1 MG TAB PO PRN (00:30)
[2017-05-26] MEDS ORDERED: hydrALAZINE HCL 10 MG TAB PO PRN (00:30)
[2017-05-26] MEDS ORDERED: MECLIZINE HCL 25 MG TAB PO PRN (01:30)
[2017-05-26] MEDS ORDERED: MELATONIN 5 MG TAB PO PRN (01:30)
[2017-05-26] MEDS: ACETAMINOPHEN 1000 MG/100 ML VIAL IV SCH ×3 (03:07→15:00)
[2017-05-26] MEDS ORDERED: ETOMIDATE 20 MG/10 ML VIAL ONE (04:18)
[2017-05-26] MEDS ORDERED: SUCCINYLCHOLINE CHLORIDE 200 MG/10 ML VIAL ONE (04:19)
[2017-05-26] MEDS ORDERED: NALOXONE HCL 2 MG/2 ML VIAL ONE (04:23)
[2017-05-26] MEDS ORDERED: NALOXONE HCL 2 MG/2 ML VIAL IV PUSH ONE (04:35)
[2017-05-26] MEDS ORDERED: PROPOFOL 1000 MG/100 ML INJ 100 ML ONE (05:01)
--- NOTE | 2017-05-26 05:16 | PD.CONS ---
[facility] Service Critical Care Medicine Consult Requested By Primary Care Physician Marvel Huertas MD History of Present Illness 81-year-old woman who presents with 4 days of immobilizing right buttock pain found to have a sacral insufficiency fracture on CT scan. Her pain started about 4 days ago after getting back from a long car ride. It is not normal for her to be in pain. She took half a tramadol last night without relief. Her pain has been so bad that she was immobile, couldn't stand, sit, or walk. She was walking last week. She usually walks with a walker. Her blood pressure has also been elevated as high as 204/110 for last 4 days. Normally, she is very lucid and alert and oriented. In the emergency department she received 4 mg of morphine IV for pain relief and was found later on in altered mental status, respiratory distress, bradyarrhythmia, and hypoxia. She was intubated emergently by ED attending and admitted to ICU. Review of Systems ROS Unobtainable patient is intubated Past Family Social History Allergies: Coded Allergies: Demerol (Verified Allergy, Severe, 03/12/17) Niacin (Verified Allergy, Severe, RASH, 03/12/17) Penicillin (Verified Allergy, Severe, SKIN PEALED, 03/12/17) Sulfa (Verified Allergy, Severe, 03/12/17) Iodine (Verified Allergy, Unknown, unknown, 03/12/17) Pt was told never to use Iodine Morphine (Verified Allergy, Unknown, 05/26/17) Uncoded Allergies: generic Benicar (Adverse Reaction, Severe, Hypertension, 03/12/17) . Past Medical History Cellulitis Hypertension Asthma Bronchitis Breast cancer status post radiation/surgery/chemotherapy Chronic lymphedema of the right arm Renal cancer misdiagnosed? Past Surgical History Renal cancer misdiagnosed? status post right nephrectomy Bilateral knee replacements Right hip surgery Reported Medications Reported Meds & Active Scripts Active Pantoprazole (Pantoprazole Sodium) 40 Mg Tab 40 Mg PO DAILY Reported Meclizine (Meclizine HCl) 25 Mg Tab 25 Mg PO BID PRN Melatonin 3 Mg Tab 3 Mg PO HS PRN Escitalopram (Escitalopram Oxalate) 20 Mg Tab 20 Mg PO DAILY Amlodipine (Amlodipine Besylate) 5 Mg Tab 5 Mg PO DAILY Stool Softener (Docusate Sodium) 100 Mg Cap 1 Cap PO DAILY PRN Magnesium 400 Mg Tab 400 Mg PO DAILY Benicar (Olmesartan) 40 Mg Tab 40 Mg PO DAILY Active Ordered Medications Current Medications Medications (Trade) Dose Ordered Sig/Bernadette Route PRN Reason Start Time Stop Time Status Last Admin Dose Admin Sodium Chloride (NS 1000 ml Inj) 1,000 ml @ 100 mls/hr Q10H IV 05/25/17 21:00 05/25/17 21:33 Sodium Chloride (NS Flush) 2 ml UNSCH PRN IV FLUSH FLUSH AFTER USING IV ACCESS 05/25/17 19:45 Sodium Chloride (NS Flush) 2 ml BID IV FLUSH 05/25/17 21:00 05/25/17 21:34 Acetaminophen (Tylenol) 650 mg Q4H PRN PO TEMP > 100.4 05/25/17 19:45 Ondansetron HCl (Zofran Inj) 4 mg Q6H PRN IVP NAUSEA OR VOMITING 05/25/17 19:45 Zolpidem Tartrate (Ambien) 5 mg HS PRN PO SEE LABEL COMMENTS 05/25/17 19:45 Enoxaparin Sodium (Lovenox Inj) 40 mg Q24H SQ 05/25/17 21:00 05/25/17 21:34 Naloxone HCl (Narcan Inj) 0.4 mg UNSCH PRN IV SEE LABEL COMMENTS 05/25/17 19:45 05/26/17 04:22 Senna/Docusate Sodium (Imelda-Colace) 1 tab BID PO 05/25/17 21:00 05/25/17 21:34 Magnesium Hydroxide (Milk Of Magnesia Liq) 30 ml Q12H PRN PO MILD - MODERATE CONSTIPATION 05/25/17 19:45 Sennosides (Senokot) 17.2 mg Q12H PRN PO MODERATE - SEVERE CONSTIPATION 05/25/17 19:45 Bisacodyl (Dulcolax Supp) 10 mg DAILY PRN RECTAL SEVERE CONSITIPATION 05/25/17 19:45 Lactulose (Lactulose Liq) 30 ml DAILY PRN PO SEVERE CONSITIPATION 05/25/17 19:45 Ibuprofen (Motrin) 400 mg Q6H PRN PO PAIN SCALE 1 TO 2 05/25/17 19:45 Ketorolac Tromethamine (Toradol Inj) 15 mg Q6H PRN IVP Pain 3-5; if unable to take PO 05/25/17 19:45 05/30/17 19:44 Ketorolac Tromethamine (Toradol Inj) 30 mg Q6H PRN IVP Pain 6-10;if unable to take PO 05/25/17 19:45 05/30/17 19:44 05/25/17 20:38 Acetaminophen (Ofirmev Inj) 1,000 mg Q6H IV 05/25/17 21:00 05/26/17 15:01 05/26/17 03:07 Morphine Sulfate (Morphine Inj) 4 mg Q3H PRN IV PUSH BREAKTHROUGH PAIN 05/25/17 23:45 05/26/17 00:15 Clonidine (Catapres) 0.1 mg Q6H PRN PO SEE LABEL COMMENTS 05/26/17 00:30 Hydralazine HCl (Apresoline) 10 mg QID PRN PO SEE LABEL COMMENTS 05/26/17 00:30 Amlodipine Besylate (Norvasc) 5 mg DAILY PO 05/26/17 09:00 Escitalopram Oxalate (Lexapro) 20 mg DAILY PO 05/26/17 09:00 Magnesium Oxide (Mag-Ox) 400 mg DAILY PO 05/26/17 09:00 Meclizine HCl (Antivert) 25 mg BID PRN PO VERTIGO 05/26/17 01:30 Pantoprazole Sodium (Protonix) 40 mg DAILY PO 05/26/17 09:00 Melatonin (Melatonin) 5 mg HS PRN PO SLEEP 05/26/17 01:30 Family History No premature history of coronary disease or cancer Social History Negative for smoking alcohol or illicit drug abuse Physical Exam Vital Signs Vital Signs Date Time Temp Pulse Resp B/P Pulse Ox O2 Delivery O2 Flow Rate FiO2 05/26/17 04:40 100 50 05/26/17 04:40 100 100 05/26/17 04:10 12.00 05/26/17 03:53 97.0 97 18 178/87 91 05/25/17 23:20 98.1 86 16 192/96 100 205/93 05/25/17 21:06 98.0 82 17 156/82 96 05/25/17 20:15 80 16 160/83 98 Room Air 05/25/17 20:12 95 05/25/17 18:18 97 21 05/25/17 18:00 73 16 173/92 98 Room Air 05/25/17 14:00 88 16 176/81 98 Room Air 05/25/17 13:31 76 16 187/84 97 Room Air 05/25/17 13:24 97 Room Air 05/25/17 11:58 98.3 95 18 226/130 95 Room Air Physical Exam GENERAL: Elderly woman sedated and intubated SKIN: Warm and dry. HEAD: Normocephalic. EYES: No scleral icterus. No injection or drainage. NECK: Supple, trachea midline. No JVD or lymphadenopathy. CARDIOVASCULAR: Regular rate and rhythm without murmurs, gallops, or rubs. RESPIRATORY: Breath sounds equal bilaterally. No accessory muscle use. GASTROINTESTINAL: Abdomen soft, non-tender, nondistended. MUSCULOSKELETAL: No cyanosis, or edema. BACK: Nontender without obvious deformity. No CVA tenderness. EXTREMITIES: No clubbing cyanosis or edema Laboratory Laboratory Tests Test 05/25/17 05/25/17 13:00 14:00 White Blood Count 8.6 Red Blood Count 4.48 Hemoglobin 14.1 Hematocrit 41.0 Mean Corpuscular Volume 91.7 Mean Corpuscular Hemoglobin 31.5 Mean Corpuscular Hemoglobin 34.3 Concent Red Cell Distribution Width 13.1 Platelet Count 215 Mean Platelet Volume 8.8 Neutrophils (%) (Auto) 86.7 Lymphocytes (%) (Auto) 5.6 Monocytes (%) (Auto) 7.2 Eosinophils (%) (Auto) 0.2 Basophils (%) (Auto) 0.3 Neutrophils # (Auto) 7.5 Lymphocytes # (Auto) 0.5 Monocytes # (Auto) 0.6 Eosinophils # (Auto) 0.0 Basophils # (Auto) 0.0 CBC Comment DIFF FINAL Differential Comment Prothrombin Time 10.9 Prothromb Time International 1.0 Ratio Activated Partial 28.4 Thromboplast Time Sodium Level 134 Potassium Level 3.8 Chloride Level 103 Carbon Dioxide Level 24.1 Anion Gap 7 Blood Urea Nitrogen 22 Creatinine 0.88 Estimat Glomerular Filtration 61 Rate Random Glucose 124 Calcium Level 10.9 Total Bilirubin 1.2 Aspartate Amino Transf 24 (AST/SGOT) Alanine Aminotransferase 22 (ALT/SGPT) Alkaline Phosphatase 124 Total Protein 7.6 Albumin 3.5 Urine Color YELLOW Urine Turbidity CLEAR Urine pH 6.0 Urine Specific [place] 1.025 Urine Protein 100 Urine Glucose (UA) NEG Urine Ketones 10 Urine Occult Blood NEG Urine Nitrite NEG Urine Bilirubin NEG Urine Urobilinogen LESS THAN 2.0 Urine Leukocyte Esterase NEG Urine RBC LESS THAN 1 Urine WBC 1 Urine Squamous Epithelial <1 Cells Urine Bacteria RARE Urine Mucus FEW Microscopic Urinalysis Comment CATH-CULTURE IND Date/Time Procedure Status Source Growth 05/25/17 14:00 Urine Culture Received Urine Catheterized Urine Pending Result Diagram: 05/25/17 1300 05/25/17 1300 Assessment and Plan Assessment and Plan Respiratory failure - Intubated for an airway protection - Continue mechanical ventilation until neurologically improved - Hypercapnic respiratory acidosis - Series of ABGs - Chest x-ray a.m. Altered mental status - Narcotic effect - Also CO2 narcosis - CT head negative - Treat underlying condition and avoid sedation Sacral fracture Early aggressive mobilization ambulation when extubated - Out of bed with assistance, - PT and OT eval and treat as tolerated Monitor vital signs Given the patient is currently not ambulating, we will initiate DVT prophylaxis with Lovenox 40 mg subcutaneous daily Hypertension Continue home medications of amlodipine 5 mg by mouth daily Clonidine 0.1 mg by mouth every 6 hours when necessary for blood pressure over 170/100 Hydralazine 10 mg by mouth 4 times a day when necessary for blood pressure over 180/110 Instructed nurse to assess pain prior to giving antihypertensives as needed DVT GI prophylaxis - Teds SCDs - Pepcid - Subcutaneous heparin Christo Shaver MD May 26, 2017 05:16
[2017-05-26 05:34] LABS: BLOOD GAS BASE EXCESS -2.4 mmol/L (-2-2); BLOOD GAS CARBOXYHEMOGLOBIN 1.4 % (0-4); BLOOD GAS HCO3 24 mmol/L (22-26); BLOOD GAS METHEMOGLOBIN 0.5 % (0-2); BLOOD GAS O2 HGB SATURATION 97 % (90-100); BLOOD GAS OXYGEN CONTENT 18.9 Vol % (12.0-20.0); BLOOD GAS PCO2 55 mmHg (38-42); BLOOD GAS PO2 151 mmHg (61-120); BLOOD GAS TOTAL HGB 13.6 G/DL (12.0-16.0); TEMP CORR TO 98.6
[2017-05-26 05:36] LABS: CRITICAL VALUE YES; OXYGEN DEVICE VENTILATOR
[2017-05-26 05:37] LABS: DRAW SITE RT RADIAL; FIO2 50 %; NUMBER OF ARTERIAL PUNCTURES 1; STAT NO; ULNAR PULSE PRESENT; VENT SETTINGS PRVC
--- NOTE | 2017-05-26 06:09 | RADRPT ---
EXAM DATE/TIME: 05/26/2017 05:33 [facility] COMPARISON: CHEST SINGLE AP, February 13, 2017, 22:27. INDICATIONS : Intubation. MEDICAL HISTORY : None. SURGICAL HISTORY : None. ENCOUNTER: Subsequent ACUITY: >1 year PAIN SCORE: Non-responsive. LOCATION: Chest FINDINGS: Endotracheal tube tip 3.9 cm above the cyril at the inferior margin of the clavicles. Cardiomegaly. Aortic calcification. Lungs are clear. Hyperinflation is noted. Right axillary clips. CONCLUSION: 1. Endotracheal tube as above. Berlin Pierce MD on May 26, 2017 at 6:06 Board Certified Radiologist. This report was verified electronically.
[2017-05-26 06:17] LABS: MAGNESIUM 2.1 MG/DL (1.5-2.5); POTASSIUM 3.8 MEQ/L (3.5-5.1)
--- NOTE | 2017-05-26 06:45 | HHI.PR ---
Addendum to Inpatient Note Addendum Reason: Additional Documentation Additional Information S: Received call regarding Jorge at 4:26 AM. Per nurse report, patient has been sleepy and occasionally screaming in pain since 9 PM. Patient received a dose of morphine at 00:15. The nurse reports that he checked on her multiple times after administration of morphine. Then, at around 4:20 a.m., the nursing tach noted and oxygen saturation in the 70s. Jorge was called at that time. Emergency department attending Dr. Ulloa tried to arouse the patient but found the patient unresponsive and proceeded to intubate with succinylcholine and etomidate. Patient was also given 2.4 mg of Narcan. After intubation, patient was transferred to the [facility]. O: Vital Signs Date Time Temp Pulse Resp B/P Pulse Ox O2 Delivery O2 Flow Rate FiO2 05/26/17 05:00 92 05/26/17 04:40 100 50 05/26/17 04:10 12.00 05/26/17 03:53 97.0 18 178/87 05/25/17 20:15 Room Air Gen: Patient intubated, transferred from Ambu bag to vent HEENT: Patient noted to have significant retrognathia Cardiovascular: Regular rate and rhythm Respiratory: Breath sounds heard better over right lung field and left. Proceeded to whole endotracheal tube from 23 cm at the lip to 22 cm at the lip and noted improved aeration/ventilation of the left lung. Abdomen: Soft, nondistended Extremities: No edema Neuro: Unresponsive A/P: 81-year-old woman who presented with a sacral insufficiency fracture and subsequent pain limiting mobility and causing failure to thrive presented In respiratory failure with a pulse ox in the 70s and was subsequently intubated by the emergency department attending. This episode was unlikely due to narcotic overdose given that the episode occurred 4 hours after administration of morphine and was unresponsive to Narcan. More likely, given that she was initially snoring on exam and her retrognathia, patient likely has undiagnosed KATALINA. Stat chest x-ray status post intubation Transfer to ICU Apprentice consult ABG Lactic acid BMP, magnesium, phosphorus because of PVCs noted on pvc monitor CT of the head given patient's recent administration of Lovenox and recent episodes of hypertension and altered mental status We will consider CTA pulmonary angiogram in the morning Nurse called daughter Amber to inform her of the situation Discussed case with poultry offal icer Dr. Shaver. David Carvajal MD R1 May 26, 2017 06:45
[2017-05-26] MEDS: SODIUM CHLOR 0.9% 1000 ML INJ 1,000 ML IV SCH ×2 (07:00→16:56)
--- NOTE | 2017-05-26 07:03 | PD ---
Data Data Last Documented VS Vital Signs Date Time Temp Pulse Resp B/P Pulse Ox O2 Delivery O2 Flow Rate FiO2 05/25/17 18:18 97 21 05/25/17 18:00 73 16 173/92 Room Air 05/25/17 11:58 98.3 Orders Complete Blood Count With Diff (05/25/17 12:02) Comprehensive Metabolic Panel (05/25/17 12:02) Prothrombin Time / Inr (Pt) (05/25/17 12:02) Act Partial Throm Time (Ptt) (05/25/17 12:02) Urinalysis - C+S If Indicated (05/25/17 12:02) Cath For Specimen (05/25/17 12:04) Nifedipine (Procardia) (05/25/17 13:30) Pelvis, Ap Only (Routine) (05/25/17 ) Urine Culture (05/25/17 14:00) Ct Pelvis W/O Iv Contrast (05/25/17 ) Place In Observation (05/25/17 ) Code Status (05/25/17 18:02) Vital Signs (Adult) TALIA.Q4H (05/25/17 18:02) Activity Oob With Assistance (05/25/17 18:02) Resp Oxygen Spenser C Titrat 1-4 L (05/25/17 ) Sodium Chloride 0.9% Flush (Ns Flush) (05/25/17 18:15) Sodium Chloride 0.9% Flush (Ns Flush) (05/25/17 21:00) Urinary Catheter Management TALIA.Q8H (05/25/17 18:02) Admit Order (Ed Use Only) (05/25/17 18:27) Labs Laboratory Tests Test 05/25/17 05/25/17 13:00 14:00 White Blood Count 8.6 TH/MM3 Red Blood Count 4.48 MIL/MM3 Hemoglobin 14.1 GM/DL Hematocrit 41.0 % Mean Corpuscular Volume 91.7 FL Mean Corpuscular Hemoglobin 31.5 PG Mean Corpuscular Hemoglobin 34.3 % Concent Red Cell Distribution Width 13.1 % Platelet Count 215 TH/MM3 Mean Platelet Volume 8.8 FL Neutrophils (%) (Auto) 86.7 % Lymphocytes (%) (Auto) 5.6 % Monocytes (%) (Auto) 7.2 % Eosinophils (%) (Auto) 0.2 % Basophils (%) (Auto) 0.3 % Neutrophils # (Auto) 7.5 TH/MM3 Lymphocytes # (Auto) 0.5 TH/MM3 Monocytes # (Auto) 0.6 TH/MM3 Eosinophils # (Auto) 0.0 TH/MM3 Basophils # (Auto) 0.0 TH/MM3 CBC Comment DIFF FINAL Differential Comment Prothrombin Time 10.9 SEC Prothromb Time International 1.0 RATIO Ratio Activated Partial 28.4 SEC Thromboplast Time Sodium Level 134 MEQ/L Potassium Level 3.8 MEQ/L Chloride Level 103 MEQ/L Carbon Dioxide Level 24.1 MEQ/L Anion Gap 7 MEQ/L Blood Urea Nitrogen 22 MG/DL Creatinine 0.88 MG/DL Estimat Glomerular Filtration 61 ML/MIN Rate Random Glucose 124 MG/DL Calcium Level 10.9 MG/DL Total Bilirubin 1.2 MG/DL Aspartate Amino Transf 24 U/L (AST/SGOT) Alanine Aminotransferase 22 U/L (ALT/SGPT) Alkaline Phosphatase 124 U/L Total Protein 7.6 GM/DL Albumin 3.5 GM/DL Urine Color YELLOW Urine Turbidity CLEAR Urine pH 6.0 Urine Specific [place] 1.025 Urine Protein 100 mg/dL Urine Glucose (UA) NEG mg/dL Urine Ketones 10 mg/dL Urine Occult Blood NEG Urine Nitrite NEG Urine Bilirubin NEG Urine Urobilinogen LESS THAN 2.0 MG/DL Urine Leukocyte Esterase NEG Urine RBC LESS THAN 1 /hpf Urine WBC 1 /hpf Urine Squamous Epithelial <1 /hpf Cells Urine Bacteria RARE /hpf Urine Mucus FEW /lpf Microscopic Urinalysis Comment CATH-CULTURE IND MDM Supervised Visit with EDGAR: No Narrative Course There was a Halicat called G pod. I went to see the patient. She had pinpoint pupils and agonal respirations. We administered 2 mg of IV Narcan. She had some increased respiratory effort but did not awaken. I intubated the patient and she was transported to the intensive care unit. Procedures Procedure Narrative After the risks and benefits were discussed the following procedure was performed: INTUBATION: The patient was put in optimal position for the procedure. Rapid sequence intubation was initiated by me using 20 milligrams of etomidate IV and 100 milligrams of succinylcholine IV. The patient was intubated with a 7.5 cuffed endotracheal tube. Tube placement was confirmed by visualization of the tube and balloon passing through the cords, capnometry and subsequent chest x- ray. Breath sounds were equal and well aerated bilaterally postintubation. No breath sounds over stomach. Patient tolerated procedure well. Diagnosis Primary Impression: Sacral insufficiency fracture Qualified Code: M84.48XA - Sacral insufficiency fracture, initial encounter Additional Impressions: Inability to ambulate due to multiple joints Failure to thrive in adult [facility],Candy Cortes MD May 26, 2017 07:03
--- NOTE | 2017-05-26 07:12 | HHI.FPPN ---
Subjective Remarks Kala Mak is an 81yo lady with history of HTN and breast cancer s/p radiation /surgery/chemotherapy admitted initially under observation for sacral insufficiency fracture. She developed pain 4 days prior to admission, after arriving in the area from a car ride (from [place]). Pain is so severe, that she is immobile and is unable to sit, stand, or walk. She also had some altered mental status changes over the past four days as well. For further details, please see resident H&P. Overnight, a [facility]CAT was called when the patient became apneic and unresponsive in the ER, with an oxygen saturation in the 70s. She was promptly intubated and transferred to [facility]. Narcan 2.4mg was administered without improvement. This morning, she remains intubated. Sedation has been discontinued, and she is starting to minimally move her legs. ROS: Unable to obtain. PMH/PSxH/SocHx/FamHx: Per resident H&P. Significant for: HTN, asthma, bronchitis , Breast cancer s/p XRT, chemo and surgery. Possible renal cell carcinoma, s/p R nephrectomy. R hip surgery. Fam hx of CAD and emphysema. Lives with daughter and has around the clock care. No tobacco or alcohol use. Objective Vitals Vital Signs Date Time Temp Pulse Resp B/P Pulse Ox O2 Delivery O2 Flow Rate FiO2 05/26/17 05:00 92 05/26/17 05:00 97.5 100 15 166/99 100 05/26/17 04:40 100 50 05/26/17 04:40 100 100 05/26/17 04:10 12.00 05/26/17 03:53 97.0 97 18 178/87 91 05/25/17 23:20 98.1 86 16 192/96 100 205/93 05/25/17 21:06 98.0 82 17 156/82 96 05/25/17 20:15 80 16 160/83 98 Room Air 05/25/17 20:12 95 05/25/17 18:18 97 21 05/25/17 18:00 73 16 173/92 98 Room Air 05/25/17 14:00 88 16 176/81 98 Room Air 05/25/17 13:31 76 16 187/84 97 Room Air 05/25/17 13:24 97 Room Air 05/25/17 11:58 98.3 95 18 226/130 95 Room Air I/O 05/25/17 05/25/17 05/25/17 05/26/17 05/26/17 05/26/17 07:00 15:00 23:00 07:00 15:00 23:00 Intake Total 500 ml Output Total 500 ml Balance 0 ml Intake Oral 100 ml IV Total 400 ml Output Urine Total 500 ml # Bowel Movements 1 Result Diagram: 05/25/17 1300 05/26/17 0510 Objective Remarks GENERAL: Intubated. HEENT: No scleral icterus, no conjunctival injection. Pupils 3mm and reactive bilaterally. ET tube in place. NECK: Supple. CV: RRR, S1 S2. No murmurs CHEST/PULM: CTA anteriorly. ABD/GI: +BS, soft, nondistended EXT: 2+ DP pulses. Starting to move legs bilaterally. Soft restraints in place. NEURO: Intubated. Nonresponsive (sedation recently discontinued) SKIN: No rashes, no jaundice. PSYCH: Unable to assess. : Chavis draining clear yellow urine. A/P Assessment and Plan Patient is an 81-year-old woman who presents with 4 days of immobilizing right buttock pain found to have a sacral insufficiency fracture on CT scan. We will place in observation for pain control and PT consult with early mobilization. She also needs IV fluids because of her inability to feed herself. Attending Attestation Patient seen, examined, and discussed with resident team. The patient has been seen and examined. The chart and all resident notes have been reviewed. I agree that inpatient care is appropriate and that a two midnight stay is expected for the reasons documented in the resident history and physical. I have discussed this with the resident and certify the resident s order for inpatient admission. Problem List: (1) Respiratory failure Status: Acute Plan: Pt currently intubated. Uncertain etiology - stroke vs resp depression from morphine vs PE vs other. Appreciate keel press operator; case discussed with Dr. Loomis. Continue ventilatory support. CT head without contrast: nonrevealing. MRI brain ordered. (2) Sacral insufficiency fracture Status: Acute Plan: Secondary to insufficiency, Vitamin D deficiency. Provide pain control when patient is more awake. PT when patient is extubated. (3) Hypertension Status: Chronic Plan: IV PRN antihypertensive medications initiated as patient is currently NPO from intubation. Will monitor and adjust medications as needed. (4) Hyponatremia Status: Acute Plan: Mild. Will monitor and adjust IV fluids as needed. (5) Acute renal insufficiency Status: Resolved Plan: Likely secondary to acute event. Resolved. Will continue to monitor. Pt with h/o right nephrectomy. (6) Leukocytosis Status: Acute Plan: Likely secondary to stress response. No obvious infectious etiology. Lactic acid WNL. (7) Vitamin D deficiency Status: Acute Plan: Patient will need Vitamin D replacement once extubated and able to take PO. Problem Qualifiers (1) Respiratory failure: Qualified Code: J96.01 - Acute respiratory failure with hypoxia (2) Sacral insufficiency fracture: Qualified Code: M84.48XA - Sacral insufficiency fracture, initial encounter Aminata Hsu MD May 26, 2017 07:11 (6) Acute renal insufficiency Status: Acute (7) Leukocytosis Status: Acute (8) Vitamin D deficiency Status: Acute Problem Qualifiers (1) Respiratory failure: Qualified Code: J96.01 - Acute respiratory failure with hypoxia (2) Sacral insufficiency fracture: Qualified Code: M84.48XA - Sacral insufficiency fracture, initial encounter Aminata Hsu MD May 26, 2017 07:11 CAD Emphysema Social History She lives with daughter. She has registered phlebotomist part time care when the daughter leaves the house. The patient does not smoke or drink. Objective Vitals Vital Signs Date Time Temp Pulse Resp B/P Pulse Ox O2 Delivery O2 Flow Rate FiO2 05/26/17 05:00 92 05/26/17 05:00 97.5 100 15 166/99 100 05/26/17 04:40 100 50 05/26/17 04:40 100 100 05/26/17 04:10 12.00 05/26/17 03:53 97.0 97 18 178/87 91 05/25/17 23:20 98.1 86 16 192/96 100 205/93 05/25/17 21:06 98.0 82 17 156/82 96 05/25/17 20:15 80 16 160/83 98 Room Air 05/25/17 20:12 95 05/25/17 18:18 97 21 05/25/17 18:00 73 16 173/92 98 Room Air 05/25/17 14:00 88 16 176/81 98 Room Air 05/25/17 13:31 76 16 187/84 97 Room Air 05/25/17 13:24 97 Room Air 05/25/17 11:58 98.3 95 18 226/130 95 Room Air I/O 05/25/17 05/25/17 05/25/17 05/26/17 05/26/17 05/26/17 07:00 15:00 23:00 07:00 15:00 23:00 Intake Total 500 ml Output Total 500 ml Balance 0 ml Intake Oral 100 ml IV Total 400 ml Output Urine Total 500 ml # Bowel Movements 1 Result Diagram: 05/25/17 1300 05/26/17 0510 Objective Remarks GENERAL: HEENT: NECK: CV: CHEST/PULM: ABD/GI: EXT: NEURO: SKIN: PSYCH: : A/P Assessment and Plan Patient is an 81-year-old woman who presents with 4 days of immobilizing right buttock pain found to have a sacral insufficiency fracture on CT scan. We will place in observation for pain control and PT consult with early mobilization. She also needs IV fluids because of her inability to feed herself. Attending Attestation Patient seen, examined, and discussed with resident team. The patient has been seen and examined. The chart and all resident notes have been reviewed. I agree that inpatient care is appropriate and that a two midnight stay is expected for the reasons documented in the resident history and physical. I have discussed this with the resident and certify the resident s order for inpatient admission. Problem List: (1) Sacral insufficiency fracture Status: Acute Plan: Patient is an 81-year-old woman who presents with 4 days of immobilizing right buttock pain found to have a sacral insufficiency fracture on CT scan. We will place in observation for pain control and PT consult with early mobilization. She also needs IV fluids because of her inability to feed herself. Also, patient's altered mental status is likely secondary to pain. Maintenance IV fluids with normal saline IV Monitor BMP, CBC Acetaminophen 1 g IV every 6 hours Ibuprofen 400 mg by mouth every 6 hours when necessary for pain 1-2 Toradol 15 mg IV push every 6 hours when necessary for pain 3-5 Toradol 30 mg IV push every 6 hours when necessary for pain 6-10 Morphine 4 mg IV every 3 hours when necessary for breakthrough pain Imelda-Colace one tab by mouth twice a day and other anticonstipation medications as needed for constipation Zofran 4 mg IV push every 6 hours when necessary for nausea or vomiting Vitamin D level. Will initiate calcium and vitamin D pending results Encourage early ambulation, out of bed with assistance, PT consult Monitor vital signs Given the patient is currently not ambulating, we will initiate DVT prophylaxis with Lovenox 40 mg subcutaneous daily (2) Hypertension Status: Chronic Plan: Patient has been hypertensive recently to his high as 200s over 110s. Continue home medications of amlodipine 5 mg by mouth daily Patient's family wants her to take her home medication of Benicar because they think she had a bad reaction to the hospital's generic Benicar Clonidine 0.1 mg by mouth every 6 hours when necessary for blood pressure over 170/100 Hydralazine 10 mg by mouth 4 times a day when necessary for blood pressure over 180/110 Instructed nurse to assess pain prior to giving antihypertensives as needed (3) FEN, ppx, chronic problems Status: Acute Plan: Fluids: Maintenance IV fluids with normal saline IV Electrolytes: Monitor and replete Nutrition: Regular basic diet DVT prophylaxis: Lovenox as above GI prophylaxis: Continue patient's home medication pantoprazole 40 mg by mouth daily Chronic medical conditions: Continue patient's home medication of Lexapro 20 mg by mouth daily Continue patient's home medication of magnesium as a nutritional supplement Continue patient's home medication meclizine when necessary for vertigo Continue patient's home medication of melatonin when necessary for insomnia/ sleep Problem Qualifiers (1) Sacral insufficiency fracture: Qualified Code: M84.48XA - Sacral insufficiency fracture, initial encounter Aminata Hsu MD May 26, 2017 07:11
[2017-05-26] MEDS: PANTOPRAZOLE SOD 40 MG DELAYED RELEASE TAB PO SCH (09:00)
[2017-05-26] MEDS: SODIUM CHLORIDE 0.9% FLUSH 10 ML FLUSH IV FLUSH SCH ×2 (09:00→21:00)
[2017-05-26] MEDS: ESCITALOPRAM OXALATE 20 MG TAB PO SCH (09:00)
[2017-05-26] MEDS: DOCUSATE SODIUM 50 MG/SENNA 8.6 MG TAB PO SCH ×2 (09:00→21:00)
[2017-05-26] MEDS: MAGNESIUM OXIDE 400 MG TAB PO SCH (09:00)
[2017-05-26] MEDS: amLODIPine BESYLATE 5 MG TAB PO SCH (09:00)
--- NOTE | 2017-05-26 09:06 | RADRPT ---
EXAM DATE/TIME: 05/26/2017 08:48 [facility] COMPARISON: CT BRAIN W/O CONTRAST, February 14, 2017, 0:23. INDICATIONS : Altered mental status. RADIATION DOSE: 56.35 CTDIvol (mGy) MEDICAL HISTORY : Carcinoma, breast. Hypertension. Renal cancer. SURGICAL HISTORY : None. ENCOUNTER: Initial ACUITY: 1 day PAIN SCALE: Non-responsive LOCATION: cranial TECHNIQUE: Multiple contiguous axial images were obtained of the head. Using automated exposure control and adj ustment of the mA and/or kV according to patient size, radiation dose was kept as low as reasonably a chievable to obtain optimal diagnostic quality images. DICOM format image data is available electro nically for review and comparison. FINDINGS: There is no evidence for intracranial hemorrhage, mass effect, mass lesions, or edema. The visualize d bony structures appear intact. Slight degree of brain atrophy is seen. Slight periventricular whit e matter changes are seen nonspecific mostly consistent with chronic small vessel ischemic changes. There are no signs of acute infarction for technique. There is improvement in previously seen sinusit is residual sinusitis remaining mainly in the left eithmoid air cells with soft tissue density within left nasal cavity. CONCLUSION: Slight atrophic and small vessel ischemic changes without any evidence for acute hemorrhage or mass effect. Adelina Sharpe MD on May 26, 2017 at 9:02 Board Certified Radiologist. This report was verified electronically.
--- NOTE | 2017-05-26 10:27 | RADRPT ---
EXAM DATE/TIME: 05/26/2017 09:16 [facility] COMPARISON: No previous studies available for comparison. INDICATIONS : Bilateral leg discoloration. MEDICAL HISTORY : Gastroesophageal reflux disease. Hypertension. Arthritis. Right renal carcinoma. COPD. Asthma. SURGICAL HISTORY : Mastectomy, right.Hysterectomy. section.Right nephrectomy. Appendectomy. ENCOUNTER: Initial ACUITY: 1 day PAIN SCORE: Non-responsive LOCATION: Bilateral legs. TECHNIQUE: Venous ultrasound of the left and right leg was performed from the inguinal ligament to the proximal calf. Real-time, color Doppler and spectral tracing, compression and augmentation techniques were us ed. FINDINGS: RIGHT LEG: There is normal compressibility of the deep venous system from the inguinal region to the proximal ca lf. No echogenic clot is seen in the lumen of the common femoral, femoral, popliteal, and posterior tibial veins. There is a normal response of the venous system to proximal and distal augmentation an d respiration. In the right groin there is a mixed echogenic mass measures 3.4 cm in size. LEFT LEG: There is normal compressibility of the deep venous system from the inguinal region to the proximal ca lf. No echogenic clot is seen in the lumen of the common femoral, femoral, popliteal, and posterior tibial veins. There is a normal response of the venous system to proximal and distal augmentation an d respiration. CONCLUSION: 1. No DVT. 2. Mixed echogenic mass in the right groin could be pathological lymph node possibly organized hemato ma or even a solid mass and clinical correlation is needed. Adelina Sharpe MD on May 26, 2017 at 10:24 Board Certified Radiologist. This report was verified electronically.
[2017-05-26 12:06] LABS: AUTOMATED NEUTROPHIL # 9.9 TH/MM3 (1.8-7.7); BASOPHIL % 0.1 % (0.0-2.0); EOSINOPHIL % 0.1 % (0.0-4.0); HEMATOCRIT 41.7 % (35.0-46.0); HEMO FLAGS DIFF FINAL; LYMPH % 7.5 % (9.0-44.0); LYMPHOCYTE # 0.9 TH/MM3 (1.0-4.8); MEAN CELL VOLUME 93.1 FL (80.0-100.0); MEAN CORPUSCULAR HEMOGLOBIN 30.9 PG (27.0-34.0); MEAN CORPUSCULAR HGB CONC 33.1 % (32.0-36.0); MONO % 9.2 % (0.0-8.0); NEUT % 83.1 % (16.0-70.0); PLATELET COUNT 178 TH/MM3 (150-450); RED BLOOD COUNT 4.48 MIL/MM3 (4.00-5.30); RED CELL DISTRIBUTION WIDTH 13.4 % (11.6-17.2); WHITE BLOOD COUNT 11.9 TH/MM3 (4.0-11.0)
[2017-05-26] MEDS: LABETALOL HCL 100 MG/20 ML VIAL IV PUSH PRN (12:20)
[2017-05-26 12:23] LABS: BICARBONATE 24.5 MEQ/L (21.0-32.0)
[2017-05-26] MEDS ORDERED: PROPOFOL 1000 MG/100 ML INJ 100 ML IV SCH (14:00)
--- NOTE | 2017-05-26 15:27 | HHI.PR ---
Addendum to Inpatient Note Addendum Reason: Additional Documentation Additional Information Went to see patient again this afternoon. Vitals stable. Patient sedated w/ETT in place. Heart rate regular, no murmers or S3,S4 noted. Lung sounds clear. No edema of the lower extremities. Pupil size 2mm, reactive to light. No response to verbal stimuli. Son and daughter at bedside. State that she was "agitated" earlier. Spoke with the family about reason for my visit. Family stated that they understood. Renetta Tellez MD R1 May 26, 2017 15:27
[2017-05-26 17:12] LABS: MRSA PCR NEGATIVE (NEGATIVE); STAPH AUREUS PCR NEGATIVE (NEGATIVE)
--- NOTE | 2017-05-26 18:05 | RADRPT ---
EXAM DATE/TIME: 05/26/2017 17:26 [facility] COMPARISON: CT BRAIN W/O CONTRAST, May 26, 2017, 8:48. INDICATIONS : CVA. MEDICAL HISTORY : Carcinoma, breast. Hypertension. Chronic obstructive pulmonary disease. SURGICAL HISTORY : Nephrectomy, right. Hip. Bi-lateral knee replacement. ENCOUNTER: Subsequent ACUITY: 4-6 days PAIN SCORE: Nonresponsive. LOCATION: TECHNIQUE: Multiplanar, multisequence MRI of the brain was performed without contrast. FINDINGS: CEREBRUM: The ventricles are normal for age. No evidence of midline shift, mass lesion, hemorrhage or acute in farction. No extraaxial fluid collections are seen. The pituitary gland and suprasellar cistern are normal in configuration. WHITE MATTER: Mild chronic flair signal abnormality seen in the periventricular white matter. POSTERIOR FOSSA: The cerebellum and brainstem are intact. The 4th ventricle is midline. The cerebellopontine angle is unremarkable. The cerebellar tonsils are normal in position. DIFFUSION IMAGING: No focal areas of restricted diffusion are seen. No evidence of acute infarction. EXTRACRANIAL: The visualized portions of the orbits and paranasal sinuses are unremarkable. CONCLUSION: Mild chronic white matter changes. Otherwise negative noncontrast MRI of the brain. No acute abnormal ity demonstrated. Isai Blas MD on May 26, 2017 at 18:02 Board Certified Radiologist. This report was verified electronically.
[2017-05-26] MEDS: CHLORHEXIDINE 0.12% (ORAL KIT) 15 ML CUP MT SCH (20:00)
[2017-05-26] MEDS: ENOXAPARIN SODIUM 40 MG/0.4 ML SYRINGE SQ SCH (21:47)
[2017-05-27] VITALS (20 sets, daily range): BP systolic 121–165; BP diastolic 62–88; PULSE 80–130; RESP 13–32; TEMP 97.8–98.5; O2SAT 92–100
[2017-05-27] MEDS: SODIUM CHLOR 0.9% 1000 ML INJ 1,000 ML IV SCH ×3 (02:27→23:00)
[2017-05-27] MEDS: hydrALAZINE HCL 20 MG/ML VIAL IV PUSH PRN ×2 (03:20→10:38)
[2017-05-27 05:34] LABS: AUTOMATED NEUTROPHIL # 9.7 TH/MM3 (1.8-7.7); BASOPHIL % 0.1 % (0.0-2.0); EOSINOPHIL % 0.2 % (0.0-4.0); HEMATOCRIT 34.9 % (35.0-46.0); HEMO FLAGS DIFF FINAL; LYMPH % 7.4 % (9.0-44.0); LYMPHOCYTE # 0.8 TH/MM3 (1.0-4.8); MEAN CELL VOLUME 93.6 FL (80.0-100.0); MEAN CORPUSCULAR HEMOGLOBIN 31.8 PG (27.0-34.0); MEAN CORPUSCULAR HGB CONC 33.9 % (32.0-36.0); MONO % 6.1 % (0.0-8.0); NEUT % 86.2 % (16.0-70.0); PLATELET COUNT 205 TH/MM3 (150-450); RED BLOOD COUNT 3.73 MIL/MM3 (4.00-5.30); RED CELL DISTRIBUTION WIDTH 13.4 % (11.6-17.2); WHITE BLOOD COUNT 11.2 TH/MM3 (4.0-11.0)
[2017-05-27 06:22] LABS: ALKALINE PHOSPHATASE 110 U/L (45-117); ALT (GPT) 19 U/L (10-53); ANION GAP 10 MEQ/L (5-15); AST (GOT) 26 U/L (15-37); BICARBONATE 20.3 MEQ/L (21.0-32.0); BLOOD UREA NITROGEN 29 MG/DL (7-18); CHLORIDE 107 MEQ/L (98-107); GLOMERULAR FILTRATION RATE 67 ML/MIN (>89); POTASSIUM 3.6 MEQ/L (3.5-5.1); SODIUM (NA) 137 MEQ/L (136-145); TOTAL BILIRUBIN ADULT 0.6 MG/DL (0.2-1.0)
[2017-05-27] MEDS: CHLORHEXIDINE 0.12% (ORAL KIT) 15 ML CUP MT SCH ×2 (08:00→20:00)
[2017-05-27] MEDS: amLODIPine BESYLATE 5 MG TAB PO SCH (08:46)
[2017-05-27] MEDS: ESCITALOPRAM OXALATE 20 MG TAB PO SCH (08:46)
[2017-05-27] MEDS: PANTOPRAZOLE SOD 40 MG DELAYED RELEASE TAB PO SCH (08:46)
[2017-05-27] MEDS: DOCUSATE SODIUM 50 MG/SENNA 8.6 MG TAB PO SCH ×2 (08:46→21:00)
[2017-05-27] MEDS: SODIUM CHLORIDE 0.9% FLUSH 10 ML FLUSH IV FLUSH SCH ×2 (08:46→21:00)
[2017-05-27] MEDS: MAGNESIUM OXIDE 400 MG TAB PO SCH (08:46)
--- NOTE | 2017-05-27 10:33 | HHI.FPPN ---
Subjective Remarks No acute events overnight. Except for borderline tachycardia with a pulse as high as 107, patient has remained afebrile with vital signs stable. Patient remains intubated on the vent. Critical care is attempting to wean her off the vent with CPAP trials. Patient is able to open her eyes on command, squeeze my fingers and released my fingers on command. However, she is unable to show me 2 fingers, but she does attempt to lift her arm up off the bed. (David Carvajal MD R1) Objective Vitals Vital Signs Date Time Temp Pulse Resp B/P Pulse Ox O2 Delivery O2 Flow Rate FiO2 05/27/17 10:00 99 05/27/17 09:53 99 40 05/27/17 09:00 100 40 05/27/17 08:00 40 05/27/17 08:00 101 05/27/17 08:00 98.5 101 15 121/62 100 05/27/17 07:00 100 Mechanical Ventilator 50 05/27/17 06:00 87 05/27/17 04:21 21 05/27/17 04:00 107 05/27/17 04:00 40 05/27/17 04:00 98.2 107 21 126/67 97 05/27/17 03:16 100 40 05/27/17 02:00 90 05/27/17 00:18 100 40 05/27/17 00:00 40 05/27/17 00:00 80 05/27/17 00:00 98.5 80 13 128/66 100 05/26/17 22:00 76 05/26/17 21:22 100 40 05/26/17 20:00 40 05/26/17 20:00 71 05/26/17 20:00 97.9 71 12 108/59 100 05/26/17 19:00 100 Mechanical Ventilator 50 05/26/17 18:18 100 40 05/26/17 18:00 66 05/26/17 17:56 12 05/26/17 17:52 100 100 05/26/17 16:00 40 05/26/17 16:00 98.4 78 22 164/85 100 05/26/17 16:00 62 05/26/17 15:30 19 05/26/17 14:00 62 05/26/17 12:23 100 40 05/26/17 12:00 65 05/26/17 12:00 40 05/26/17 12:00 98.0 80 16 184/110 100 136/75 I/O 05/26/17 05/26/17 05/26/17 05/27/17 05/27/17 05/27/17 07:00 15:00 23:00 07:00 15:00 23:00 Intake Total 652 ml 592 ml 627 ml Output Total 700 ml 225 ml 175 ml Balance -48 ml 367 ml 452 ml Intake Oral 0 ml IV Total 652 ml 592 ml 627 ml Output Urine Total 700 ml 225 ml 175 ml Stool Total 0 ml # Bowel Movements 0 (David Carvajal MD R1) Result Diagram: 05/27/17 0458 05/27/17 0458 Imaging Last Impressions Head CT 05/26/17813 Signed Impressions: Service Date/Time: Friday, May 26, 2017 08:48 - CONCLUSION: Slight atrophic and small vessel ischemic changes without any evidence for acute hemorrhage or mass effect. Adelina Sharpe MD Lower Extremity Ultrasound 05/26/17 0000 Signed Impressions: Service Date/Time: Friday, May 26, 2017 09:16 - CONCLUSION: 1. No DVT. 2. Mixed echogenic mass in the right groin could be pathological lymph node possibly organized hematoma or even a solid mass and clinical correlation is needed. Adelina Sharpe MD Chest X-Ray 05/26/17 0000 Signed Impressions: Service Date/Time: Friday, May 26, 2017 05:33 - CONCLUSION: 1. Endotracheal tube as above. Berlin Pierce MD Brain MRI 05/26/17 0000 Signed Impressions: Service Date/Time: Friday, May 26, 2017 17:26 - CONCLUSION: Mild chronic white matter changes. Otherwise negative noncontrast MRI of the brain. No acute abnormality demonstrated. Isai Blas MD Pelvis X-Ray 05/25/17 0000 Signed Impressions: Service Date/Time: May 13:51 - CONCLUSION: 1. Concern for sacral insufficiency fracture on the right. Consider CT to further evaluate. 2. Osteopenia. Russ Nice Jr., MD Pelvis CT 05/25/17 0000 Signed Impressions: Service Date/Time: May 15:38 - CONCLUSION: 1. Acute right sacral insufficiency fracture. 2. 3.4 x 2.5 cm low-density lesion involving the right inguinal region. This is poorly characterize on this unenhanced study. The Hounsfield units are approaching that of water and this may relate to a cyst or seroma. It is stable in the short interval from the prior study. 3. Colonic diverticulosis. 4. Absence of the right kidney. Russ Nice Jr., MD Objective Remarks GENERAL: Intubated. SKIN: No rashes, no jaundice. HEENT: No scleral icterus, no conjunctival injection. Pupils 3mm and reactive bilaterally. ET tube in place. NECK: Supple. CV: RRR, S1 S2. No murmurs CHEST/PULM: CTAB anteriorly. ABD/GI: +BS, soft, nondistended EXT: 2+ DP pulses. Patient moving all limbs spontaneously. Soft restraints in place. NEURO: Patient is able to open her eyes on command, squeeze my fingers and released my fingers on command. However, she is unable to show me 2 fingers, but she does attempt to lift her arm up off the bed. PSYCH: Unable to assess. : Chavis draining dark yellow urine. (David Carvajal MD R1) A/P Assessment and Plan Patient is an 81-year-old woman who presents with 4 days of immobilizing right buttock pain found to have a sacral insufficiency fracture on CT scan. She was initially placed in observation for pain control, PT consult with early mobilization, and IV fluids because of her inability to feed herself. The night she was placed in observation, she became apneic and hypoxic with a pulse ox in the 70s and was promptly intubated and transferred to ICU. She has remained intubated and on the ventilator. Attempting to wean from vent today. Also attempting to discern etiology of apnea. Discharge Planning After extubation, patient will need pain control, work with physical therapy, to be able to feed herself prior to discharge. (David Carvajal MD R1) Attending Attestation Patient seen, examined, and discussed with resident team. I agree with assessment and management as documented and discussed with me. Pt remains intubated. Sedation has been stopped and patient is starting to wake up at the time of my exam. Appreciate sternman. (Aminata Hsu MD) Problem List: (1) Respiratory failure Status: Acute Plan: Pt currently intubated. Uncertain etiology, thought to be due to decreased central respiratory drive. Differential includes: Sedative overdose, Encephalitis, Stroke, Central and obstructive sleep apnea, Obesity hypoventilation, Congenital central alveolar hypoventilation, Brainstem disease, Hypothyroidism, Starvation - also considering PE vs CHF vs other - TSH, BNP, considering EEG, tube feeds VQ scan ordered for today. If equivocal, will likely proceed with CTA pulmonary angiogram Echocardiogram ordered Appreciate sternman; case briefly discussed with Dr. Xiao Continue ventilatory support and attempt to wean off ventilator as soon as possible with CPAP trials today. CT head without contrast: nonrevealing. MRI brain: nonrevealing. (2) Elevated troponin Status: Acute Plan: Elevated troponin of 0.24. Could be due to PE vs. ACS. - continue ACS r/o - cardiac echo - VQ scan of lungs because of h/o nephrectomy, will pursue CTA pulmonary angiogram if needed (3) Sacral insufficiency fracture Status: Acute Plan: Secondary to insufficiency, Vitamin D deficiency. Provide pain control when patient is more awake. PT when patient is extubated. (4) Hypertension Status: Chronic Plan: IV PRN antihypertensive medications initiated as patient is currently NPO from intubation. Will monitor and adjust medications as needed. (5) Hyponatremia Status: Acute Plan: Mild. Will monitor and adjust IV fluids as needed. (6) Acute renal insufficiency Status: Resolved Plan: Likely secondary to acute event. Resolved. Will continue to monitor. Pt with h/o right nephrectomy. (7) Leukocytosis Status: Acute Plan: Likely secondary to stress response. No obvious infectious etiology. Lactic acid WNL. (8) Vitamin D deficiency Status: Acute Plan: Patient will need Vitamin D replacement once extubated and able to take PO. (David Carvajal MD R1) Problem Qualifiers (1) Respiratory failure: Qualified Code: J96.01 - Acute respiratory failure with hypoxia (2) Sacral insufficiency fracture: Qualified Code: M84.48XA - Sacral insufficiency fracture, initial encounter Daivd Carvajal MD R1 May 27, 2017 10:33 Aminata Hsu MD May 27, 2017 20:22
[2017-05-27] MEDS ORDERED: RESP: ALBUTEROL 2.5 MG/3 ML NEB (PRN) NEB (10:45)
--- NOTE | 2017-05-27 10:49 | HHI.CCPN ---
Subjective Remarks/Hospital Course 81-year-old woman who presents with 4 days of immobilizing right buttock pain found to have a sacral insufficiency fracture on CT scan. Her pain started about 4 days ago after getting back from a long car ride. It is not normal for her to be in pain. She took half a tramadol last night without relief. Her pain has been so bad that she was immobile, couldn't stand, sit, or walk. She was walking last week. She usually walks with a walker. Her blood pressure has also been elevated as high as 204/110 for last 4 days. Normally, she is very lucid and alert and oriented. In the emergency department she received 4 mg of morphine IV for pain relief and was found later on in altered mental status, respiratory distress, bradyarrhythmia, and hypoxia. She was intubated emergently by ED attending and admitted to ICU. Subjective 05/27: Awake and alert and following commands. Currently on PSV trial. States pain is currently controlled. No bowel movement overnight. Objective Vital Signs Date Time Temp Pulse Resp B/P Pulse Ox O2 Delivery O2 Flow Rate FiO2 05/27/17 10:00 99 05/27/17 09:53 99 40 05/27/17 08:00 98.5 15 121/62 05/27/17 07:00 Mechanical Ventilator 05/26/17 04:10 12.00 Intake and Output 05/26/17 05/26/17 05/27/17 08:00 16:00 00:00 Intake Total 652 ml 592 ml Output Total 700 ml 225 ml Balance -48 ml 367 ml Result Diagram: 05/27/17 0458 05/27/17 0458 Other Results Microbiology Date/Time Procedure Status Source Growth 05/26/17 11:41 Aerobic Blood Culture Received Blood Peripheral Pending 05/26/17 11:41 Anaerobic Blood Culture Received Blood Peripheral Pending 05/25/17 14:00 Urine Culture - Preliminary Resulted Urine Catheterized Urine NO GROWTH IN 24 HOURS. Imaging Last [address] 05/26/17 0814 Signed Impressions: Service Date/Time: Friday, May 26, 2017 08:48 - CONCLUSION: Slight atrophic and small vessel ischemic changes without any evidence for acute hemorrhage or mass effect. Adelina Sharpe MD Lower Extremity Ultrasound 05/26/17 0000 Signed Impressions: Service Date/Time: Friday, May 26, 2017 09:16 - CONCLUSION: 1. No DVT. 2. Mixed echogenic mass in the right groin could be pathological lymph node possibly organized hematoma or even a solid mass and clinical correlation is needed. Adelina Sharpe MD Chest X-Ray 05/26/17 Signed Impressions: Service Date/Time: Friday, May 26, 2017 05:33 - CONCLUSION: 1. Endotracheal tube as above. Berlin Pierce MD Brain MRI 05/26/17 Signed Impressions: Service Date/Time: Friday, May 26, 2017 17:26 - CONCLUSION: Mild chronic white matter changes. Otherwise negative noncontrast MRI of the brain. No acute abnormality demonstrated. Isai Blas MD Pelvis X-Ray 05/25/17 Signed Impressions: Service Date/Time: May 13:51 - CONCLUSION: 1. Concern for sacral insufficiency fracture on the right. Consider CT to further evaluate. 2. Osteopenia. Russ Nice Jr., MD Pelvis CT 05/25/17 Signed Impressions: Service Date/Time: May 15:38 - CONCLUSION: 1. Acute right sacral insufficiency fracture. 2. 3.4 x 2.5 cm low-density lesion involving the right inguinal region. This is poorly characterize on this unenhanced study. The Hounsfield units are approaching that of water and this may relate to a cyst or seroma. It is stable in the short interval from the prior study. 3. Colonic diverticulosis. 4. Absence of the right kidney. Russ Nice Jr., MD Objective Remarks GENERAL: 81-year-old female, critically ill currently orotracheally intubated SKIN: Warm and dry. No rash HEAD: Normocephalic. EYES: No scleral icterus. No injection or drainage. NECK: Supple, trachea midline. No JVD or lymphadenopathy. CARDIOVASCULAR: Tachycardic with ectopy. S1, S2 no S4 without murmur RESPIRATORY: Breath sounds equal bilaterally. No accessory muscle use. GASTROINTESTINAL: Abdomen soft, non-tender, nondistended. MUSCULOSKELETAL: No significant bilateral lower extremity edema NEURO: Cranial nerves II through XII grossly intact. Strength appears equal and symmetric. Normal sensation. A/P Assessment and Plan Neuro/Psych: Acute delirium likely secondary to narcotics Anxiety disorder NOS CT/MRI brain revealed no acute cranial findings No narcotics Currently on propofol drip at 10 mcg/kg/m. Weaning off Neurology consulted routine per primary team Previously on Escitapram 20 mg by mouth daily. Resume Motrin for pain management Acetaminophen for fever CV: History of hypertension Dyslipidemia Home Medications Benicar 40 mg by mouth daily Norvasc 5 mill grams by mouth daily. Current and Norvasc 5 mill grams by mouth daily. Currently on normal saline at 100 cc an hour. Hemodynamically stable and not requiring vasopressors and/or anti-hypertensives Resp: Acute respiratory failure History COPD Currently a PSV trial 06/17 at 40% Chest x-ray revealed no acute cardio pulmonary findings. Will follow-up with VQ scan later today Duo nebs every 4 hours ordered Ventilator bundle Spontaneous breathing trials right now Agree with VQ scan. Dopplers likes negative for DVT GI: Gastroesophageal reflux disease Currently nothing by mouth with NGT to LIWS Protonix for GI prophylaxis Imelda Colace for bowel regimen : Chavis catheter placed for accurate I's and O's in a critically ill patient Endo: Sliding-scale insulin if necessary to maintain euglycemia Renal: History right nephrectomy Creatinine currently within normal limits Accurate I's and O's Monitor urine output Heme: History of breast cancer MSK: Sacral alae fracture Right thigh mass lymph node versus hematoma versus others Pain management. PT evaluate and treat Noted ultrasound that revealed mass unclear etiology. Further workup if indicated ID: Monitor for infection Prophylaxis - GI - Protonix - DVT - SCD/heparin subcutaneous Level II Derek Xiao MD May 27, 2017 10:48
[2017-05-27] MEDS: POTASSIUM CHLOR 10 MEQ PREMIX 100 ML IV SCH ×2 (10:56→10:57)
[2017-05-27] MEDS ORDERED: RESP: RACEPINEPHRINE 2.25% 0.5 ML NEB ONE ×2 (11:16→11:17)
[2017-05-27] MEDS: ASPIRIN EC 325 MG TABEC PO SCH (12:45)
[2017-05-27] MEDS ORDERED: LORazepam 2 MG/ML VIAL IV PUSH PRN (12:45)
--- NOTE | 2017-05-27 12:48 | EKG ---
Date Performed: 05/26/2017 Time Performed: 15:24:54 PTAGE: 81 years EKG: Sinus rhythm with PVC(s). Leftward axis Compared to prior tracing no significant change Borderline ECG PREVIOUS TRACING : 02/13/2017 22.38 DOCTOR: Bairon Wheatley Interpretating Date/Time 05/27/2017 12:42:55
[2017-05-27] MEDS: MAGNESIUM SULFATE 1 GM PREMIX 100 ML IV SCH ×2 (13:29→16:45)
[2017-05-27] MEDS: ACETAMINOPHEN 1000 MG/100 ML VIAL IV SCH ×2 (13:29→22:59)
[2017-05-27 14:27] LABS: BLOOD GAS BASE EXCESS -4.9 mmol/L (-2-2); BLOOD GAS CARBOXYHEMOGLOBIN 1.2 % (0-4); BLOOD GAS HCO3 19 mmol/L (22-26); BLOOD GAS METHEMOGLOBIN 0.7 % (0-2); BLOOD GAS O2 HGB SATURATION 96 % (90-100); BLOOD GAS OXYGEN CONTENT 17.4 Vol % (12.0-20.0); BLOOD GAS PCO2 34 mmHg (38-42); BLOOD GAS PO2 111 mmHg (61-120); BLOOD GAS TOTAL HGB 12.7 G/DL (12.0-16.0); CRITICAL VALUE NO; DRAW SITE RT RADIAL; NUMBER OF ARTERIAL PUNCTURES 1; OXYGEN DEVICE PRB; STAT NO; TEMP CORR TO 98.6; ULNAR PULSE Y
--- NOTE | 2017-05-27 14:28 | RADRPT ---
EXAM DATE/TIME: 05/27/2017 13:51 [facility] COMPARISON: CHEST SINGLE AP, May 26, 2017, 5:33. INDICATIONS : Shortness of breath. MEDICAL HISTORY : Gastroesophageal reflux disease. Hypertension. Arthritis. Right renal carcinoma. COPD. Asthma. SURGICAL HISTORY : astectomy, right.Hysterectomy. section.Right nephrectomy. ENCOUNTER: Initial ACUITY: 1 day PAIN SCORE: Non-responsive. LOCATION: Bilateral chest FINDINGS: The lungs are clear without infiltrate, nodule, or mass. There is no appreciable pleural effusion fo r technique. Heart and mediastinum are unremarkable. CONCLUSION: No acute cardiopulmonary disease. Adelina Sharpe MD on May 27, 2017 at 14:26 Board Certified Radiologist. This report was verified electronically.
[2017-05-27] MEDS ORDERED: methylPREDNISolone SOD SUCC 40 MG/1 ML VIAL IV PUSH ONE (15:00)
[2017-05-27] MEDS: RESP: ALBUTEROL 2.5 MG/IPRATROPIUM 0.5 MG NEB (SCH) NEB ×2 (15:16→21:25)
[2017-05-27] MEDS ORDERED: GLUCAGON 1 MG/ML VIAL OTHER PRN (15:30)
[2017-05-27] MEDS ORDERED: DEXTROSE 50% IN WATER 50 ML VIAL(D50) IV PRN (15:30)
--- NOTE | 2017-05-27 15:50 | MB ---
cc: DIEUDONNE CRUZ M.D. DATE OF CONSULTATION: 05/27/2017. HISTORY OF PRESENT ILLNESS: 81-year-old woman right-handed with a history of hypertension, one kidney (one was taken out, thought to be cancerous but it was not), breast cancer twenty years ago, otherwise fairly healthy who was found slumped over to the right with what her daughter thought was some right facial droop. She subsequently came into the hospital and was just admitted 05/25. She evidently had been confused for a week. Normally no major memory problems however. She had had some pain in the right buttock region and usually walks with a walker. She has been wheelchair-bound and was found to have a sacral fracture. Lying in bed. Not eating. Some confusion. The patient usually lives with her daughter. ALLERGIES: 1. DEMEROL. 2. NIACIN. 3. PENICILLIN. 4. SULFA. 5. IODINE. MEDICATIONS AT HOME: 1. Protonix. 2. Meclizine. 3. Melatonin. 4. Citalopram. 5. Amlodipine. 6. Ditropan. 7. Benicar. REVIEW OF SYSTEMS: According to the family, no diabetes, hypercholesterolemia, myocardial infarction, stents, cardiac arrhythmia, atrial fibrillation, Coumadin, CABG, hepatic or pulmonary disease, thyroid disease, lupus, ulcer, seizure or stroke. SOCIAL HISTORY: Not a smoker or a drinker. Lives with her daughter. FAMILY HISTORY: Negative for cancer, seizure or stroke. A MerlineT was then called to G-Pod. She had pinpoint pupils, agonal respirations. She was given some Narcan, did not awaken. This was after evidently being given some narcotics down in the emergency room due to the pain. She was subsequently extubated today. PHYSICAL EXAMINATION: VITAL SIGNS: On exam, she has been in sinus rhythm at 99 to 130, 32, 136/63. She had some high blood pressure initially to 226/130. NECK: There are no carotid bruits. HEART: Regular rhythm. I do not detect a murmur. NEUROLOGICAL EXAMINATION: She just was extubated and is a little gurgly but is not aphasic. Visual hu are full. Extraocular movements intact. Face is symmetric with normal sensation. Tongue was midline. Normal strength in upper and lower extremities bilaterally. Toes are downgoing bilaterally. DTRs are trace at the knees. Pinprick was intact throughout. LABORATORY DATA: CBC is essentially normal. Basic metabolic profile essentially normal. Calcium normal. Liver function tests normal. Troponin 0.24. Albumin 2.7. Vitamin D low. Coags normal. IMAGING STUDIES: MRI of the brain negative. IMPRESSION: I think overall she looks well neurologically. I note she has a history of a right carotid stenosis in the past. 1. Will check a carotid ultrasound on her but she did not have a stroke here and overall looked well neurologically. 2. Check a B12 level on her with her recent confusion. 3. Echocardiogram for what may have been a small TIA, but I think unlikely. Will just treat her with a baby aspirin at this time. I sounds like it was more of a medication reaction down in the emergency room. MD EMBER Sanchez/[place] /12:45 PM /3:42 PM
[2017-05-27] MEDS: LABETALOL HCL 100 MG/20 ML VIAL IV PUSH PRN (16:12)
[2017-05-27] MEDS: INSULIN NovoLIN REGULAR SUPPLEMENTAL SCALE SQ SCH (16:44)
[2017-05-27 17:35] LABS: CREATINE KINASE 164 U/L (26-192)
[2017-05-27 17:49] LABS: CKMB 16.9 NG/ML (0.5-3.6)
[2017-05-27] MEDS: DEXAMETHASONE SOD PHOS 4 MG/ML VIAL IV PUSH SCH ×2 (17:50→23:00)
[2017-05-27] MEDS ORDERED: SODIUM CHLOR 0.9% 250 ML INJ 250 ML IV ONE (18:00)
[2017-05-27] MEDS ORDERED: ALBUMIN HUMAN 25% 25 GM/100 ML BAGP IV ONE (18:30)
[2017-05-27] MEDS ORDERED: HEPARIN-D5W INJ 250 ML IV SCH (18:45)
[2017-05-27] MEDS ORDERED: ASPIRIN 300 MG SUPP RECTAL SCH (18:45)
[2017-05-27] MEDS ORDERED: NITROGLYCERIN 0.4 MG SL 25 TABS/BTL SL PRN (18:45)
[2017-05-27] MEDS ORDERED: HEPARIN SODIUM - IV 10,000 UNITS/10 ML VIAL IV ONE (18:45)
[2017-05-27] MEDS ORDERED: ONDANSETRON HCL 4 MG/2 ML VIAL IV PRN (18:45)
[2017-05-27] MEDS ORDERED: METOPROLOL TARTRATE 5 MG/5 ML VIAL IV PUSH PRN (19:30)
[2017-05-27 20:41] LABS: HEMATOCRIT 36.5 % (35.0-46.0); MEAN CELL VOLUME 94.8 FL (80.0-100.0); MEAN CORPUSCULAR HEMOGLOBIN 31.1 PG (27.0-34.0); MEAN CORPUSCULAR HGB CONC 32.8 % (32.0-36.0); PLATELET COUNT 198 TH/MM3 (150-450); RED BLOOD COUNT 3.84 MIL/MM3 (4.00-5.30); RED CELL DISTRIBUTION WIDTH 13.3 % (11.6-17.2); REVIEW FLAG FINAL
[2017-05-27 21:04] LABS: PROTHROMBIN TIME - PATIENT 10.7 SEC (9.8-11.6)
[2017-05-27] MEDS: RESP: SODIUM CHLORIDE 3% 4 ML NEB NEB SCH (21:25)
[2017-05-27] MEDS: HEPARIN-D5W INJ 250 ML IV SCH (21:35)
--- NOTE | 2017-05-27 22:13 | RADRPT ---
EXAM DATE/TIME: 05/27/2017 15:21 [facility] COMPARISON: No previous studies available for comparison. INDICATIONS : Cerebrosvascular accident. MEDICAL HISTORY : Chronic obstructive pulmonary disease. Hypertension. Renal, breast, uterine cancer. SURGICAL HISTORY : Mastectomy, right. Right nephrectomy. ENCOUNTER: Initial ACUITY: 1 day PAIN SCORE: Nonresponsive. LOCATION: Bilateral neck PEAK SYSTOLIC VELOCITIES (cm/sec): ICA/CCA RATIO: Right: 3.36 Left: 1.05 ICA: Right: 316 Left: 107 CCA: Right: 94 Left: 101 ECA: Right: 53 Left: 88 VERTEBRAL: Right: 86 antegrade Left: 72 antegrade Elevated flow velocities and ICA/CCA ratios have been found to correlate with increased degrees of vessel stenosis, calculated as percentage of diameter relative to a normal segment of distal ICA/CCA FINDINGS: There is extensive atherosclerotic plaquing at the origin of the right ICA and to a slight degree on the left. 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 Adelina Sharpe MD on May 27, 2017 at 22:11 Board Certified Radiologist. This report was verified electronically.
[2017-05-28] VITALS (15 sets, daily range): BP systolic 151–168; BP diastolic 77–98; PULSE 78–112; RESP 21–29; TEMP 97.4–98.6; O2SAT 92–100
[2017-05-28] MEDS ORDERED: HEPARIN SODIUM - IV 10,000 UNITS/10 ML VIAL IV PRN ×4 (00:45→01:30)
[2017-05-28 01:18] LABS: CREATINE KINASE 113 U/L (26-192)
[2017-05-28 01:33] LABS: CKMB 16.6 NG/ML (0.5-3.6)
[2017-05-28] MEDS: RESP: ALBUTEROL 2.5 MG/IPRATROPIUM 0.5 MG NEB (SCH) NEB ×4 (03:50→21:33)
[2017-05-28] MEDS: RESP: SODIUM CHLORIDE 3% 4 ML NEB NEB SCH ×4 (03:51→21:33)
[2017-05-28 04:14] LABS: HEMATOCRIT 33.6 % (35.0-46.0); MEAN CELL VOLUME 93.5 FL (80.0-100.0); MEAN CORPUSCULAR HEMOGLOBIN 31.7 PG (27.0-34.0); MEAN CORPUSCULAR HGB CONC 33.9 % (32.0-36.0); PLATELET COUNT 201 TH/MM3 (150-450); RED CELL DISTRIBUTION WIDTH 13.3 % (11.6-17.2); REVIEW FLAG FINAL; WHITE BLOOD COUNT 9.8 TH/MM3 (4.0-11.0)
[2017-05-28 04:38] LABS: ANION GAP 10 MEQ/L (5-15); BICARBONATE 19.1 MEQ/L (21.0-32.0); BLOOD UREA NITROGEN 31 MG/DL (7-18); CHLORIDE 110 MEQ/L (98-107); GLOMERULAR FILTRATION RATE 74 ML/MIN (>89); POTASSIUM 4.1 MEQ/L (3.5-5.1); SODIUM (NA) 139 MEQ/L (136-145)
[2017-05-28 04:49] LABS: CREATINE KINASE 106 U/L (26-192)
[2017-05-28 05:06] LABS: CKMB 14.9 NG/ML (0.5-3.6)
[2017-05-28 05:13] LABS: APTT (PATIENT) 47.8 SEC (24.3-30.1)
[2017-05-28] MEDS: INSULIN NovoLIN REGULAR SUPPLEMENTAL SCALE SQ SCH ×5 (06:00→23:48)
[2017-05-28] MEDS: DEXAMETHASONE SOD PHOS 4 MG/ML VIAL IV PUSH SCH ×2 (07:44→12:00)
[2017-05-28] MEDS: ACETAMINOPHEN 1000 MG/100 ML VIAL IV SCH ×3 (07:45→21:02)
[2017-05-28] MEDS: CHLORHEXIDINE 0.12% (ORAL KIT) 15 ML CUP MT SCH ×2 (08:00→20:00)
[2017-05-28] MEDS: SODIUM CHLORIDE 0.9% FLUSH 10 ML FLUSH IV FLUSH SCH ×2 (08:29→21:00)
[2017-05-28] MEDS: ESCITALOPRAM OXALATE 20 MG TAB PO SCH (08:29)
[2017-05-28] MEDS: DOCUSATE SODIUM 50 MG/SENNA 8.6 MG TAB PO SCH ×2 (08:29→21:02)
[2017-05-28] MEDS: ASPIRIN EC 325 MG TABEC PO SCH (08:29)
[2017-05-28] MEDS: PANTOPRAZOLE SOD 40 MG DELAYED RELEASE TAB PO SCH (08:29)
[2017-05-28] MEDS: MAGNESIUM OXIDE 400 MG TAB PO SCH (08:29)
[2017-05-28] MEDS: amLODIPine BESYLATE 5 MG TAB PO SCH (08:29)
[2017-05-28] MEDS ORDERED: SODIUM CHLOR 0.9% 250 ML INJ 250 ML IV ONE ×2 (08:30→12:00)
[2017-05-28] MEDS: hydrALAZINE HCL 20 MG/ML VIAL IV PUSH PRN (08:31)
[2017-05-28] MEDS: SODIUM CHLOR 0.9% 1000 ML INJ 1,000 ML IV SCH ×2 (09:00→19:53)
--- NOTE | 2017-05-28 09:57 | HHI.FPPN ---
Subjective Remarks Overnight, patient was noted to have elevated cardiac enzymes and abnormal EKG. Stat cardiology consult was placed for likely NSTEMI. Overnight, patient has remained borderline tachycardic with a pulse in the 90s, mildly hypertensive with blood pressure 150s to 160s over 70s to 80s. Otherwise afebrile with vital signs stable and pulse ox over 95% on room air. Patient is difficult to understand this morning. It is unclear whether or not she is experiencing chest pain or pain in her right sacral area. I did understand her to say that her breathing is lousy. Discussed with nurse that patient likely has some underlying obstructive sleep apnea and would likely benefit from CPAP or BiPAP. (David Carvajal MD R1) Objective Vitals Vital Signs Date Time Temp Pulse Resp B/P Pulse Ox O2 Delivery O2 Flow Rate FiO2 05/28/17 07:56 99 21 05/28/17 06:00 98 05/28/17 04:00 90 05/28/17 04:00 98.6 92 26 151/88 98 05/28/17 02:00 84 05/28/17 00:00 98.6 87 23 152/77 96 05/28/17 00:00 93 05/27/17 23:00 95 05/27/17 22:00 96 05/27/17 20:11 95 05/27/17 20:00 96 05/27/17 20:00 98.0 92 26 165/88 96 05/27/17 19:00 100 Room Air 05/27/17 18:00 87 05/27/17 17:06 96 Venturi Mask 50 05/27/17 16:00 123 05/27/17 16:00 97.8 120 28 148/73 98 05/27/17 14:00 124 05/27/17 12:00 130 05/27/17 12:00 98.3 123 32 136/63 99 05/27/17 11:45 92 Partial Rebreather 05/27/17 11:10 Partial Rebreather 92 05/27/17 10:00 99 05/27/17 09:53 99 40 I/O 05/27/17 05/27/17 05/27/17 05/28/17 05/28/17 05/28/17 07:00 15:00 23:00 07:00 15:00 23:00 Intake Total 627 ml 791 ml 1183 ml 900 ml Output Total 175 ml 200 ml 250 ml 175 ml Balance 452 ml 591 ml 933 ml 725 ml IV Total 627 ml 791 ml 1183 ml 900 ml Output Urine Total 175 ml 200 ml 250 ml 175 ml # Bowel Movements 0 0 0 0 (David Carvajal MD R1) Result Diagram: 05/28/17 0359 05/28/17 0359 Imaging Last Impressions Chest X-Ray 05/27/17 1340 Signed Impressions: Service Date/Time: Saturday, May 27, 2017 13:51 - CONCLUSION: No acute cardiopulmonary disease. Adelina Sharpe MD Carotid Artery Ultrasound 05/27/17 1243 Signed Impressions: Service Date/Time: Saturday, May 27, 2017 15:21 - CONCLUSION: Significant hemodynamic stenosis involving the origin of the right ICA. Adelina Sharpe MD Head CT 05/26/17 0814 Signed Impressions: Service Date/Time: Friday, May 26, 2017 08:48 - CONCLUSION: Slight atrophic and small vessel ischemic changes without any evidence for acute hemorrhage or mass effect. Adelina Sharpe MD Lower Extremity Ultrasound 05/26/17 0000 Signed Impressions: Service Date/Time: Friday, May 26, 2017 09:16 - CONCLUSION: 1. No DVT. 2. Mixed echogenic mass in the right groin could be pathological lymph node possibly organized hematoma or even a solid mass and clinical correlation is needed. Adelina Sharpe MD Brain MRI 05/26/17 0000 Signed Impressions: Service Date/Time: Friday, May 26, 2017 17:26 - CONCLUSION: Mild chronic white matter changes. Otherwise negative noncontrast MRI of the brain. No acute abnormality demonstrated. Isai Blas MD Pelvis X-Ray 05/25/17 0000 Signed Impressions: Service Date/Time: May 13:51 - CONCLUSION: 1. Concern for sacral insufficiency fracture on the right. Consider CT to further evaluate. 2. Osteopenia. Russ Nice Jr., MD Pelvis CT 05/25/17 0000 Signed Impressions: Service Date/Time: , May 25, 2017 15:38 - CONCLUSION: 1. Acute right sacral insufficiency fracture. 2. 3.4 x 2.5 cm low-density lesion involving the right inguinal region. This is poorly characterize on this unenhanced study. The Hounsfield units are approaching that of water and this may relate to a cyst or seroma. It is stable in the short interval from the prior study. 3. Colonic diverticulosis. 4. Absence of the right kidney. Russ Nice Jr., MD Objective Remarks GENERAL: Extubated, awake and alert, there is some blood on her gown and her hands from where patient pulled her IV with heparin running through it. Patient is trying to talk to me but she is difficult to understand. She is withdrawing from nurse attempting IV access. SKIN: No rashes, no jaundice. HEENT: No scleral icterus, no conjunctival injection. Pupils 2mm and reactive bilaterally. NECK: Supple. CV: Borderline tachycardic rate and regular rhythm, S1 S2. New systolic murmur heard best over tricuspid area. CHEST/PULM: CTAB anteriorly. ABD/GI: +BS, soft, nondistended EXT: Lymphedema of right arm. Patient moving all limbs spontaneously. Soft restraints in place. NEURO: Patient is awake and alert, trying to talk to me but difficult to understand PSYCH: Unable to assess. : Chavis draining light yellow urine. (David Carvajal MD R1) A/P Assessment and Plan Patient is an 81-year-old woman who presents with 4 days of immobilizing right buttock pain found to have a sacral insufficiency fracture on CT scan. She was initially placed in observation for pain control, PT consult with early mobilization, and IV fluids because of her inability to feed herself. The night she was placed in observation, she became apneic and hypoxic with a pulse ox in the 70s and was promptly intubated and transferred to ICU. She was successfully weaned off of the vent yesterday, 05/27/17. Still attempting to discern etiology of apnea. Discharge Planning After extubation, patient will need pain control, work with physical therapy, to be able to feed herself prior to discharge. (David Carvajal MD R1) Attending Attestation Patient seen and examined, discussed with resident team. I agree with assessment and management as documented and discussed with me. Pt reports feeling "lousy". She is maintaining sats on room air while awake. UOP decreasing - 26mL / hr overnight. Await echo, VQ scan. (Aminata Hsu MD) Problem List: (1) NSTEMI (non-ST elevation myocardial infarction) Status: Acute Plan: EKG with ST depressions in V4, V5, V6. Elevated troponin of 1.77, 3.23, 3.03. CK-MB 16.9, 16.6, 14.9. BNP 463. Could be due to PE vs. ACS. Likely NSTEMI. - Cardiology consulted - Aspirin IN, beta jeremy IV, heparin drip started last night - cardiac echo - VQ scan of lungs because of h/o nephrectomy, will pursue CTA pulmonary angiogram if needed (2) Respiratory failure Status: Acute Plan: Pt currently extubated. Uncertain etiology, thought to be due to decreased central respiratory drive. Differential includes: Sedative overdose, Encephalitis, Stroke, Central and obstructive sleep apnea, Obesity hypoventilation, Congenital central alveolar hypoventilation, Brainstem disease, Hypothyroidism, Starvation - also considering PE vs CHF vs other Patient found to have elevated cardiac enzymes and abnormal EKG and new heart murmur. Apnea likely due to cyclical problem of KATALINA, hypoventilation, and acute NSTEMI CPAP/BiPAP ordered - TSH, BNP 463, considering EEG, tube feeds VQ scan ordered. If equivocal, may proceed with CTA pulmonary angiogram Echocardiogram ordered Appreciate correctional program specialist CT head without contrast: nonrevealing. MRI brain: nonrevealing. (3) Decreased urine output Status: Acute Plan: Patient with decreased urine output. - Provided 250 mL bolus - We'll continue to monitor and provide IV fluids as needed (4) Sacral insufficiency fracture Status: Acute Plan: Secondary to osteopenia, osteoporosis, Vitamin D deficiency. Provide pain control when safe to do so. PT as soon as possible. (5) Hypertension Status: Chronic Plan: IV PRN antihypertensive medications initiated Will monitor and adjust medications as needed. (6) Hyponatremia Status: Acute Plan: Mild. Will monitor and adjust IV fluids as needed. (7) Acute renal insufficiency Status: Resolved Plan: Likely secondary to acute event. Resolved. Will continue to monitor. Pt with h/o right nephrectomy. (8) Leukocytosis Status: Resolved Plan: Likely secondary to stress response. No obvious infectious etiology. Lactic acid WNL. (9) Vitamin D deficiency Status: Acute Plan: Patient will need Vitamin D replacement once extubated and able to take PO. (David Carvajal MD R1) Problem Qualifiers (1) Respiratory failure: Qualified Code: J96.01 - Acute respiratory failure with hypoxia (2) Sacral insufficiency fracture: Qualified Code: M84.48XA - Sacral insufficiency fracture, initial encounter David Carvajal MD R1 May 28, 2017 09:57 Aminata Hsu MD May 28, 2017 14:02
--- NOTE | 2017-05-28 10:56 | HHI.PR ---
Objective Vital Signs Date Time Temp Pulse Resp B/P Pulse Ox O2 Delivery O2 Flow Rate FiO2 05/28/17 07:56 99 21 05/28/17 06:00 98 05/28/17 04:00 90 05/28/17 04:00 98.6 92 26 151/88 98 05/28/17 02:00 84 05/28/17 00:00 98.6 87 23 152/77 96 05/28/17 00:00 93 05/27/17 23:00 95 05/27/17 22:00 96 05/27/17 20:11 95 05/27/17 20:00 96 05/27/17 20:00 98.0 92 26 165/88 96 05/27/17 19:00 100 Room Air 05/27/17 18:00 87 05/27/17 17:06 96 Venturi Mask 50 05/27/17 16:00 123 05/27/17 16:00 97.8 120 28 148/73 98 05/27/17 14:00 124 05/27/17 12:00 130 05/27/17 12:00 98.3 123 32 136/63 99 05/27/17 11:45 92 Partial Rebreather 05/27/17 11:10 Partial Rebreather 92 I/O 05/27/17 05/27/17 05/27/17 05/28/17 05/28/17 05/28/17 07:00 15:00 23:00 07:00 15:00 23:00 Intake Total 627 ml 791 ml 1183 ml 900 ml Output Total 175 ml 200 ml 250 ml 175 ml Balance 452 ml 591 ml 933 ml 725 ml IV Total 627 ml 791 ml 1183 ml 900 ml Output Urine Total 175 ml 200 ml 250 ml 175 ml # Bowel Movements 0 0 0 0 Result Diagram: 05/28/17 0359 05/28/17 0359 Objective Remarks awake alert moves bue well Assessment and Plan Assessment and Plan imp mri neg b12 ok us looks like tight r ica alyson order mra neck althoug not emergent and ldl ? mi cards consult ordered fu echo Toni Schmidt MD May 28, 2017 10:56
[2017-05-28 11:27] LABS: APTT (PATIENT) 28.6 SEC (24.3-30.1)
--- NOTE | 2017-05-28 11:28 | HHI.CCPN ---
Subjective Remarks/Hospital Course 81-year-old woman who presents with 4 days of immobilizing right buttock pain found to have a sacral insufficiency fracture on CT scan. Her pain started about 4 days ago after getting back from a long car ride. It is not normal for her to be in pain. She took half a tramadol last night without relief. Her pain has been so bad that she was immobile, couldn't stand, sit, or walk. She was walking last week. She usually walks with a walker. Her blood pressure has also been elevated as high as 204/110 for last 4 days. Normally, she is very lucid and alert and oriented. In the emergency department she received 4 mg of morphine IV for pain relief and was found later on in altered mental status, respiratory distress, bradyarrhythmia, and hypoxia. She was intubated emergently by ED attending and admitted to ICU. Subjective 05/27: Awake and alert and following commands. Currently on PSV trial. States pain is currently controlled. No bowel movement overnight. 05/28: Extubated yesterday tolerating well. Troponin elevation NSTEMI, troponin peaked at 3.2. cardiology consult echo pending. Consult vacular surgery, for R carotid stenosis. Discussed with daughter Amber Mak at bedside and updated her Objective Vital Signs Date Time Temp Pulse Resp B/P Pulse Ox O2 Delivery O2 Flow Rate FiO2 05/28/17 07:56 99 21 05/28/17 07:00 Room Air 05/28/17 06:00 98 05/28/17 04:00 98.6 26 151/88 05/26/17 04:10 12.00 Intake and Output 05/27/17 05/27/17 05/27/17 07:59 15:59 23:59 Intake Total 627 ml 791 ml 1183 ml Output Total 175 ml 200 ml 250 ml Balance 452 ml 591 ml 933 ml Result Diagram: 05/28/17 0359 05/28/17 0359 Other Results Microbiology Date/Time Procedure Status Source Growth 05/25/17 14:00 Urine Culture - Final Complete Urine Catheterized Urine NO GROWTH IN 48 HOURS. Laboratory Tests Test 05/27/17 14:22 Blood Gas Puncture Site RT RADIAL Blood Gas Patient Temperature 98.6 Blood Gas HCO3 19 mmol/L (22-26) Blood Gas Base Excess -4.9 mmol/L (-2-2) Blood Gas Oxygen Saturation 96 % (90-100) Arterial Blood pH 7.37 (7.380-7.420) Arterial Blood Partial 34 mmHg (38-42) Pressure CO2 Arterial Blood Partial 111 mmHg Pressure O2 (61-120) Arterial Blood Oxygen Content 17.4 Vol % (12.0-20.0) Arterial Blood 1.2 % (0-4) Carboxyhemoglobin Arterial Blood Methemoglobin 0.7 % (0-2) Blood Gas Hemoglobin 12.7 G/DL (12.0-16.0) Oxygen Delivery Device PRB Imaging Last [address] 05/26/17 0814 Signed Impressions: Service Date/Time: Friday, May 26, 2017 08:48 - CONCLUSION: Slight atrophic and small vessel ischemic changes without any evidence for acute hemorrhage or mass effect. Adelina Sharpe MD Lower Extremity Ultrasound 05/26/17 0000 Signed Impressions: Service Date/Time: Friday, May 26, 2017 09:16 - CONCLUSION: 1. No DVT. 2. Mixed echogenic mass in the right groin could be pathological lymph node possibly organized hematoma or even a solid mass and clinical correlation is needed. Adelina Sharpe MD Chest X-Ray 05/26/17 0000 Signed Impressions: Service Date/Time: Friday, May 26, 2017 05:33 - CONCLUSION: 1. Endotracheal tube as above. Berlin Pierce MD Brain MRI 05/26/17 0000 Signed Impressions: Service Date/Time: Friday, May 26, 2017 17:26 - CONCLUSION: Mild chronic white matter changes. Otherwise negative noncontrast MRI of the brain. No acute abnormality demonstrated. Isai Blas MD Pelvis X-Ray 05/25/17 0000 Signed Impressions: Service Date/Time: May 13:51 - CONCLUSION: 1. Concern for sacral insufficiency fracture on the right. Consider CT to further evaluate. 2. Osteopenia. Russ Nice Jr., MD Pelvis CT 05/25/17 0000 Signed Impressions: Service Date/Time: May 15:38 - CONCLUSION: 1. Acute right sacral insufficiency fracture. 2. 3.4 x 2.5 cm low-density lesion involving the right inguinal region. This is poorly characterize on this unenhanced study. The Hounsfield units are approaching that of water and this may relate to a cyst or seroma. It is stable in the short interval from the prior study. 3. Colonic diverticulosis. 4. Absence of the right kidney. Russ Nice Jr., MD Objective Remarks GENERAL: 81-year-old female, currently on RA SKIN: Warm and dry. No rash HEAD: Normocephalic. EYES: No scleral icterus. No injection or drainage. NECK: Supple, trachea midline. No JVD or lymphadenopathy. CARDIOVASCULAR: Tachycardic with ectopy. S1, S2 no S4 without murmur RESPIRATORY: Breath sounds equal bilaterally. No accessory muscle use. GASTROINTESTINAL: Abdomen soft, non-tender, nondistended. MUSCULOSKELETAL: No significant bilateral lower extremity edema NEURO: Alert awake no focal deficits. oriented to person only (Knows her name and know that she is in hospital A/P Assessment and Plan Neuro/Psych: Acute delirium likely secondary to narcotics Anxiety disorder NOS CT/MRI brain revealed no acute cranial findings Avoid all narcotics Neurology Dr. Rider Previously on Escitapram 20 mg by mouth daily. Resumed Motrin for pain management, Acetaminophen for pain fever CV: NSTEMI History of hypertension Dyslipidemia Right carotid stenosis Start metoprolol 25 mg by mouth every 8 hours Labetalol when necessary for SBP more than 160 Cardiology consult pending, Echo pending Continue aspirin, IV heparin Home Medications Benicar 40 mg by mouth daily Norvasc 5 mill grams by mouth daily. Current and Norvasc 5 mill grams by mouth daily. Currently on normal saline at 100 cc an hour. Hemodynamically stable and not requiring vasopressors and/or anti-hypertensives Vascular surgery Dr. Unger consulted Resp: Acute respiratory failure-resolved History COPD Currently on nasal cannula Chest x-ray revealed no acute cardio pulmonary findings. Duo nebs every 4 hours ordered Ventilator bundle Spontaneous breathing trials right now Dopplers negative for DVT GI: Gastroesophageal reflux disease Currently nothing by mouth -swallow eval Protonix for GI prophylaxis Imelda Colace for bowel regimen : Chavis catheter placed for accurate I's and O's in a critically ill patient Endo: Sliding-scale insulin if necessary to maintain euglycemia Renal: History right nephrectomy Creatinine currently within normal limits Accurate I's and O's Monitor urine output Heme: History of breast cancer MSK: Sacral alae fracture Right thigh mass lymph node versus hematoma versus others Pain management. PT evaluate and treat Noted ultrasound that revealed mass unclear etiology. Further workup if indicated -according to daughter Amber Mak she had swelling of R groin before , but not sure etiology. Check MRI of R groin once clinically more stable ID: Monitor for infection Prophylaxis - GI - Protonix - DVT - SCD/IV heparin Level III Leann Alex MD May 28, 2017 11:28
--- NOTE | 2017-05-28 11:30 | ECHRPT ---
Indication: Shortness of breath CONCLUSIONS Normal left ventricular size. Wall thickness is normal. The left ventricular systolic function is normal with an estimated ejection fraction in the range of 55-60%. The right ventricle is mildly dilated. The right ventricular systoilc function is moderately decreas ed. The left atrial size is mildly dilated. Moderate thickening of the mitral valve leaflets. Mild mitral valve regurgitation. Mitral annular calcification is present. Aortic valve sclerosis is present. Trace aortic valve regurgitation. There is mild tricuspid valve regurgitation. There is estimated mild pulmonary hypertension present (48 mmHg). BP: / HR: Rhythm: MEASUREMENTS (Male / Female) Normal Values Technical Quality:Technically difficult study (Pt refused complete imaging) 2D ECHO LV Diastolic Diameter PLAX 3.7 cm 4.2 - 5.9 / 3.9 - 5.3 cm LV Systolic Diameter PLAX 2.9 cm IVS Diastolic Thickness 0.8 cm 0.6 - 1.0 / 0.6 - 0.9 cm LVPW Diastolic Thickness 0.5 cm 0.6 - 1.0 / 0.6 - 0.9 cm LV Relative Wall Thickness 0.4 RV Internal Dim ED PLAX 2.8 cm LA Systolic Diameter LX 3.5 cm 3.0 - 4.0 / 2.7 - 3.8 cm DOPPLER MV Peak Velocity 167.0 cm/s MV Peak Gradient 11.2 mmHg MV Mean Velocity 79.7 cm/s MV Mean Gradient 3.0 mmHg Mitral E Point Velocity 71.6 cm/s Mitral A Point Velocity 136.0 cm/s Mitral E to A Ratio 0.5 TR Peak Velocity 328.0 cm/s TR Peak Gradient 43.0 mmHg FINDINGS LEFT VENTRICLE Normal left ventricular size. Wall thickness is normal. The left ventricular systolic function is normal with an estimated ejection fraction in the range of 55-60%. RIGHT VENTRICLE The right ventricle is mildly dilated. The right ventricular systoilc function is moderately decreased. LEFT ATRIUM The left atrial size is mildly dilated. RIGHT ATRIUM The right atrial size is normal. ATRIAL SEPTUM Normal atrial septal thickness without atrial level shunting by limited color doppler interrogation. AORTA The aortic root and proximal ascending aorta are normal in size on limited imaging. MITRAL VALVE Moderate thickening of the mitral valve leaflets. Mild mitral valve regurgitation. Mitral annular calcification is present. AORTIC VALVE Aortic valve sclerosis is present. Trace aortic valve regurgitation. TRICUSPID VALVE There is mild tricuspid valve regurgitation. There is estimated mild pulmonary hypertension present (48 mmHg). PULMONARY VALVE The pulmonary valve is not well visualized. VESSELS The inferior vena cava is normal in size. PERICARDIUM No pericardial effusion. Bairon Wheatley MD (Electronically Signed) Final Date:28 May 2017 11:29
[2017-05-28 11:31] LABS: HDL CHOLESTEROL 75.6 MG/DL (40.0-60.0)
[2017-05-28] MEDS: METOPROLOL TARTRATE 25 MG TAB PO SCH ×3 (12:00→21:01)
--- NOTE | 2017-05-28 13:10 | EKG ---
Date Performed: 05/27/2017 Time Performed: 14:07:16 PTAGE: 81 years EKG: SINUS TACHYCARDIA WITH FREQUENT VENTRICULAR PREMATURE COMPLEXES MARKED LEFT AXIS DEVIATION MINIMAL ST DEPRESSION ABNORMAL ECG PREVIOUS TRACING : 05/26/2017 15.24 Since prior tracng, frequent PVCs are now present and sinus rate has increased. ST changes are nonspecific. DOCTOR: Bairon Wheatley Interpretating Date/Time 05/28/2017 13:09:45
--- NOTE | 2017-05-28 13:13 | EKG ---
Date Performed: 05/27/2017 Time Performed: 19:09:34 PTAGE: 81 years EKG: Sinus rhythm MARKED LEFT AXIS DEVIATION LOW QRS VOLTAGE IN PRECORDIAL LEADS POSSIBLE ANTERIOR MYOCARDIAL INFARCTI ON , OF INDETERMINATE AGE ABNORMAL ECG PREVIOUS TRACING : 05/27/2017 14.07 Since prior tracing, sinus rate is slower. PVCs have resolv ed. DOCTOR: Bairon Wheatley Interpretating Date/Time 05/28/2017 13:11:44
--- NOTE | 2017-05-28 17:01 | MB ---
cc: ALFONZO ESPINAL MD DATE OF CONSULTATION: 05/28/2017. REASON FOR CONSULTATION: Elevated troponin. HISTORY OF PRESENT ILLNESS: The patient is a very pleasant 81-year-old woman with no prior cardiac history who presented with buttock pain and was found to have a sacral fracture. She has since had difficulty with respirations briefly requiring intubation, elevated troponins and change in mental status. Her echocardiogram was concerning for RV strain but she has not yet been able to undergo a test to exclude pulmonary embolus, partially due to her IODINE ALLERGY excluding a CT pulmonary angiogram but also her change in mental status and restlessness which has prevented a VQ scan. She is currently on a heparin drip. The patient is unable to provide any history or symptoms at the moment. PAST MEDICAL HISTORY: 1. Hypertension. 2. Breast cancer. 3. Lymphedema. 4. Asthma. ALLERGIES: Her allergies are multiple, but include: 1. IODINE. 2. BENICAR. PHYSICAL EXAMINATION: VITAL SIGNS: Afebrile, pulse 112, respiratory rate 21, blood pressure 151/88, satting 100% on two liters. GENERAL: A pleasant thought disoriented and occasionally mildly agitated elderly woman in soft restraints. NECK: No jugular venous distention. LUNGS: Decreased breath sounds. CARDIOVASCULAR: Mildly tachycardic and regular. No significant murmurs appreciated. ABDOMEN: Benign. EXTREMITIES: No edema. LABORATORY DATA: White count 9.8, hematocrit 33.6, platelet count 201,000. Sodium 139, potassium 4.1, chloride 110, bicarbonate 19.1, BUN 31, creatinine 0.25, glucose 116. Troponins are positive peaking at 3.23, now down to 3.03. BNP is mildly elevated at 463. D dimer is positive at 1.39. CARDIOLOGY STUDIES: EKG has shown sinus tachycardia with nonspecific S-T changes. Echocardiogram showed ejection fraction 55-60% with some evidence of RV strain with possible Salvador's sign and mild pulmonary hypertension. IMPRESSION: Elevated troponin. The patient's elevated troponin is fairly nonspecific in a setting such as this. Given her orthopedic injury and immobility, pulmonary embolus has to be high on the differential. Supporting this concept would be the RV strain seen echocardiogram. She is currently on heparin drip until such time a definitive test such as a VQ scan or pulmonary angiogram can be done. I did discuss this with the daughter, and we both agree that the patient is not a candidate for cardiac catheterization and would treat any presumptive coronary artery disease medically. Further recommendations will based on her clinical course. Thank you again for the opportunity to participate in this patient's care. MD PAGE Newby/CAROLINA /3:51 PM /4:56 PM
--- NOTE | 2017-05-28 17:39 | HHI.PR ---
Addendum to Inpatient Note Addendum Reason: Additional Documentation Additional Information Spoke with daughter Cherelle regarding alternative code status. Cherelle indicated that she didn't think her mother would want CPR compressions, but she would want intubation, shocks, and ACLS drugs to be given. Called back later to try to clarify the patient's, Ms. Mak's, Iodine allergy because contrast study is indicated for the diagnosis of PE. However, Cherelle was unable to come to the phone, so I left a message with her , instructing Cherelle to call back with information about the patient's iodine allergy. Also, called patient's other daughter, Amber Lewis, leaving a voicemail for her to call back with any information regarding the patient's iodine allergy. Regardless, patient is currently on anti-coagulation protocol. Per nursing report, patient seems to be too painful to tolerate VQ scan, and we are trying to avoid sedation. Per nurse report, patient not tolerating CPAP well. However, she is satting well on room air. David Carvajal MD R1 May 28, 2017 17:39
[2017-05-28 18:25] LABS: APTT (PATIENT) 41.8 SEC (24.3-30.1)
[2017-05-28] MEDS ORDERED: SODIUM BICARBONATE 650 MG TAB PO ONE (19:45)
[2017-05-28] MEDS: HEPARIN-D5W INJ 250 ML IV SCH (19:53)
[2017-05-28] MEDS: POTASSIUM PHOSPHATE/SODIUM PHOSPHATE 250 MG TAB PO SCH (21:02)
[2017-05-28 23:42] LABS: APTT (PATIENT) 47.7 SEC (24.3-30.1)
[2017-05-29] VITALS (14 sets, daily range): BP systolic 137–165; BP diastolic 67–79; PULSE 60–78; RESP 18–24; TEMP 97.6–98; O2SAT 95–100
[2017-05-29] MEDS: LABETALOL HCL 100 MG/20 ML VIAL IV PUSH PRN (01:30)
[2017-05-29] MEDS: RESP: SODIUM CHLORIDE 3% 4 ML NEB NEB SCH ×4 (03:36→22:00)
[2017-05-29] MEDS: RESP: ALBUTEROL 2.5 MG/IPRATROPIUM 0.5 MG NEB (SCH) NEB ×4 (03:36→20:18)
[2017-05-29] MEDS ORDERED: niCARdipine 25 MG/250 ML IVPB IV SCH ×2 (03:45)
[2017-05-29] MEDS: hydrALAZINE HCL 20 MG/ML VIAL IV PUSH PRN ×2 (05:20→09:12)
[2017-05-29] MEDS: METOPROLOL TARTRATE 25 MG TAB PO SCH ×3 (05:40→21:10)
[2017-05-29] MEDS: POTASSIUM PHOSPHATE/SODIUM PHOSPHATE 250 MG TAB PO SCH ×3 (05:40→21:10)
[2017-05-29] MEDS: INSULIN NovoLIN REGULAR SUPPLEMENTAL SCALE SQ SCH ×3 (05:40→18:00)
[2017-05-29] MEDS: ACETAMINOPHEN 1000 MG/100 ML VIAL IV SCH ×3 (05:40→21:10)
--- NOTE | 2017-05-29 07:15 | PD.VS.CON ---
History of Present Illness Chief Complaint: carotid stenosis Consult Requested by: Dr. Alex History of Present Illness 81 yo female who was admitted with altered mental status, had thorough work-up including carotid ultrasound and was found to have high grade carotid stenosis. Pt is disoriented but pleasant and has no personal history of focal neurological deficits. Most of history obtained from chart due to altered mental status Past/Family/Social History Past Medical History Past Medical History Hypertension Asthma Breast cancer status post radiation/surgery/chemotherapy Chronic lymphedema of the right arm ? renal CA Past Surgical History Past Surgical History Renal cancer misdiagnosed? status post right nephrectomy Bilateral knee replacements Right hip surgery Social History lives with daughter Family History NC Home Medications Active Scripts Pantoprazole 40 Mg Tab40 Mg PO DAILY #30 TAB Ref 0 Prov:David Mtz DO 03/13/17 Reported Medications Meclizine 25 Mg Tab25 Mg PO BID PRN (VERTIGO) Ref 0 05/25/17 Melatonin 3 Mg Tab3 Mg PO HS PRN (SLEEP) 05/25/17 Escitalopram 20 Mg Tab20 Mg PO DAILY #30 TAB Ref 0 05/25/17 Amlodipine 5 Mg Tab5 Mg PO DAILY #30 TAB Ref 0 03/12/17 Docusate Sodium (Stool Softener)100 Mg Cap1 Cap PO DAILY PRN (CONSTIPATION) 03/12/17 Magnesium 400 Mg [id number] Mg PO DAILY Ref 0 03/12/17 Olmesartan (Benicar)40 Mg Tab40 Mg PO DAILY #30 TAB Ref 0 02/13/17 Discontinued Reported Medications Oxybutynin (Ditropan)5 Mg Tab5 Mg PO HS #60 TAB Ref 0 02/13/17 Melatonin (Bulk) (Melatonin)1 Pow Pow3 Mg PO 03/12/17 Escitalopram (Lexapro)10 Mg Tab10 Mg PO DAILY #30 TAB Ref 0 03/12/17 Discontinued Scripts Metronidazole (Flagyl)500 Mg Csg480 Mg PO Q8HR #30 TAB Prov:David Mtz DO 03/13/17 Lactobacillus Acidophilus (Acidophilus/l-Sporogenes)1 Tab Tab1 Tab PO TID #30 TAB Prov:David Mtz DO 03/13/17 Ciprofloxacin (Cipro)500 Mg [id number] Mg PO Q12H #20 TAB Prov:David Mtz DO 03/13/17 Coded Allergies: Demerol (Verified Allergy, Severe, 03/12/17) Niacin (Verified Allergy, Severe, RASH, 03/12/17) Penicillin (Verified Allergy, Severe, SKIN PEALED, 03/12/17) Sulfa (Verified Allergy, Severe, 03/12/17) Iodine (Verified Allergy, Unknown, unknown, 03/12/17) Pt was told never to use Iodine Morphine (Verified Allergy, Unknown, 05/26/17) Uncoded Allergies: generic Benicar (Adverse Reaction, Severe, Hypertension, 03/12/17) . Review of Systems ROS Limitations: Altered Mental Status Physical Exam Vitals/I&O Date Time Temp Pulse Resp B/P Pulse Ox O2 Delivery O2 Flow Rate FiO2 05/29/17 02:00 69 05/29/17 00:00 71 05/29/17 00:00 97.6 71 20 162/74 99 05/28/17 22:00 78 05/28/17 20:07 100 05/28/17 20:00 82 05/28/17 20:00 97.6 82 27 166/86 99 05/28/17 19:00 99 Room Air 05/28/17 18:00 104 05/28/17 16:00 100 05/28/17 16:00 97.4 106 23 161/98 100 05/28/17 14:00 112 05/28/17 12:00 95 05/28/17 12:00 98.1 108 21 151/88 100 05/28/17 10:00 92 05/28/17 08:00 89 05/28/17 08:00 97.8 100 29 168/86 100 05/28/17 07:56 99 21 05/28/17 07:00 Room Air Neuro: pleasant and in no distress, conversant; disoriented to time and situation HEENT: NC/AT Neck: no JVD Heart: reg rate, no M Lungs: clear B Abdomen: NT Extremities: RICHARDSON, slightly weak R UE but seems more effort related Laboratory Tests Test 05/28/17 05/28/17 05/28/17 05/29/17 10:30 17:00 23:00 05:30 Activated Partial 28.6 41.8 47.7 33.0 Thromboplast Time Date/Time Procedure Status Source Growth 05/26/17 11:41 Aerobic Blood Culture - Preliminary Resulted Blood Peripheral NO GROWTH IN 2 DAYS 05/26/17 11:41 Anaerobic Blood Culture - Preliminary Resulted Blood Peripheral NO GROWTH IN 2 DAYS 05/25/17 14:00 Urine Culture - Final Complete Urine Catheterized Urine NO GROWTH IN 48 HOURS. Last 48 hours Impressions Chest X-Ray 05/27/17 1340 Signed Impressions: Service Date/Time: Saturday, May 27, 2017 13:51 - CONCLUSION: No acute cardiopulmonary disease. Adelina Sharpe MD Carotid Artery Ultrasound 05/27/17 1243 Signed Impressions: Service Date/Time: Saturday, May 27, 2017 15:21 - CONCLUSION: Significant hemodynamic stenosis involving the origin of the right ICA. Adelina Sharpe MD Assessment and Plan Plan likely high grade asymptomatic RIGHT carotid stenosis in patient with multiple other medical issues. I don't think any of her recent events are related to carotid atherosclerosis and certainly not classically atheroembolic. Given her age and comorbities I don't think a prophylactic CEA is warranted. Needs only medical management. Would not repeat carotid imaging unless symptomatic. Aaron Unger MD FACS RPVI cisco administrator [facility] - [facility] V[facility] at [facility] [phone] Aaron Unger MD May 29, 2017 07:15
[2017-05-29] MEDS: CHLORHEXIDINE 0.12% (ORAL KIT) 15 ML CUP MT SCH ×2 (08:00→20:00)
[2017-05-29] MEDS: SODIUM CHLORIDE 0.9% FLUSH 10 ML FLUSH IV FLUSH SCH ×2 (09:00→21:10)
[2017-05-29] MEDS: ASPIRIN EC 325 MG TABEC PO SCH ×2 (09:00→09:03)
[2017-05-29] MEDS: ESCITALOPRAM OXALATE 20 MG TAB PO SCH (09:03)
[2017-05-29] MEDS: PANTOPRAZOLE SOD 40 MG DELAYED RELEASE TAB PO SCH (09:03)
[2017-05-29] MEDS: MAGNESIUM OXIDE 400 MG TAB PO SCH (09:03)
[2017-05-29] MEDS: DOCUSATE SODIUM 50 MG/SENNA 8.6 MG TAB PO SCH ×2 (09:03→21:10)
[2017-05-29] MEDS: amLODIPine BESYLATE 5 MG TAB PO SCH (09:03)
--- NOTE | 2017-05-29 09:03 | HHI.FPPN ---
Subjective Remarks Yesterday, discussed with bow making machine operator and nick setter the patient likely has PE given slightly elevated troponins and echocardiogram showing right ventricular strain. Patient has already been on anticoagulation with heparin IV titration protocol. Both bow making machine operator and nick setter expressed interest in pursuing a CTA pulmonary angiogram, especially given that it was extremely unlikely that the patient could sit upright and still long enough for a V/Q scan. However, CTA pulmonary angiogram was not pursued because of an unknown iodine allergy in the patient's EMR. This was discussed with both of the patient 's daughters, Amber Lewis and Bre, who felt that the patient is already being treated for a PE, so why bother to do the study. Per nursing conversation with daughter, patient eats seafood. Furthermore, the patient's vital signs are stable, so it is unlikely that any other intervention would be indicated at this time. Yesterday, clarified code status with daughter Bre. Today, confirmed alternate code status with patient. Yesterday, clarified patient's baseline with daughter Bre. She is AOx4 and sharp-witted but walks with a walker. This morning, when asked about her goals, the patient responded that she wants to get the soft restraints off. However, patient pulled out her IV yesterday, and per nursing report has pulled out 3 of her IVs, and she is a difficult stick that requires ultrasound to obtain IV access. Informed patient that she needs the IV and therefore needs to restraints. Patient is alert and oriented to her name, but she thinks it's the 1970s, and she thinks she is at home. After I explained where she is and why she is here, she proceeded to ask me again where she is and why she is here. She then said that she hopes to go home today. (David Carvajal MD R1) Objective Vitals Vital Signs Date Time Temp Pulse Resp B/P Pulse Ox O2 Delivery O2 Flow Rate FiO2 05/29/17 07:39 100 21 05/29/17 06:00 78 05/29/17 04:00 66 05/29/17 04:00 97.6 66 22 165/79 100 05/29/17 02:00 69 05/29/17 00:00 71 05/29/17 00:00 97.6 71 20 162/74 99 05/28/17 22:00 78 05/28/17 20:07 100 05/28/17 20:00 82 05/28/17 20:00 97.6 82 27 166/86 99 05/28/17 19:00 99 Room Air 05/28/17 18:00 104 05/28/17 16:00 100 05/28/17 16:00 97.4 106 23 161/98 100 05/28/17 14:00 112 05/28/17 12:00 95 05/28/17 12:00 98.1 108 21 151/88 100 05/28/17 10:00 92 I/O 05/28/17 05/28/17 05/28/17 05/29/17 05/29/17 05/29/17 07:00 15:00 23:00 07:00 15:00 23:00 Intake Total 900 ml 866 ml 1324 ml 746 ml Output Total 175 ml 300 ml 250 ml 200 ml Balance 725 ml 566 ml 1074 ml 546 ml Intake Oral 480 ml 240 ml IV Total 900 ml 866 ml 844 ml 506 ml Output Urine Total 175 ml 300 ml 250 ml 200 ml # Bowel Movements 0 0 0 0 (David Carvajal MD R1) Result Diagram: 05/28/17 0359 05/28/17 0359 Imaging Last Impressions Chest X-Ray 05/27/17 1340 Signed Impressions: Service Date/Time: Saturday, May 27, 2017 13:51 - CONCLUSION: No acute cardiopulmonary disease. Adelina Sharpe MD Carotid Artery Ultrasound 05/27/17 1243 Signed Impressions: Service Date/Time: Saturday, May 27, 2017 15:21 - CONCLUSION: Significant hemodynamic stenosis involving the origin of the right ICA. Adelina Sharpe MD Head CT 05/26/17 0814 Signed Impressions: Service Date/Time: Friday, May 26, 2017 08:48 - CONCLUSION: Slight atrophic and small vessel ischemic changes without any evidence for acute hemorrhage or mass effect. Adelina Sharpe MD Lower Extremity Ultrasound 05/26/17 0000 Signed Impressions: Service Date/Time: Friday, May 26, 2017 09:16 - CONCLUSION: 1. No DVT. 2. Mixed echogenic mass in the right groin could be pathological lymph node possibly organized hematoma or even a solid mass and clinical correlation is needed. Adelina Sharpe MD Brain MRI 05/26/17 0000 Signed Impressions: Service Date/Time: Friday, May 26, 2017 17:26 - CONCLUSION: Mild chronic white matter changes. Otherwise negative noncontrast MRI of the brain. No acute abnormality demonstrated. Isai Blas MD Pelvis X-Ray 05/25/17 0000 Signed Impressions: Service Date/Time: May 13:51 - CONCLUSION: 1. Concern for sacral insufficiency fracture on the right. Consider CT to further evaluate. 2. Osteopenia. Russ Nice Jr., MD Pelvis CT 05/25/17 0000 Signed Impressions: Service Date/Time: May 15:38 - CONCLUSION: 1. Acute right sacral insufficiency fracture. 2. 3.4 x 2.5 cm low-density lesion involving the right inguinal region. This is poorly characterize on this unenhanced study. The Hounsfield units are approaching that of water and this may relate to a cyst or seroma. It is stable in the short interval from the prior study. 3. Colonic diverticulosis. 4. Absence of the right kidney. Russ Nice Jr., MD Objective Remarks GENERAL: Extubated, patient is asleep and easily arousable to become awake and alert SKIN: No rashes, no jaundice. HEENT: No scleral icterus, no conjunctival injection. Pupils 2mm and reactive bilaterally. NECK: Supple. CV: Regular rate and regular rhythm, S1 S2. Decreased relative to yesterday systolic murmur heard best over tricuspid area. CHEST/PULM: CTAB anteriorly. ABD/GI: +BS, soft, nondistended EXT: Lymphedema of right arm. Patient moving all limbs spontaneously. Soft restraints in place. NEURO: Patient is awake and alert, oriented to person, but not time, place, or situation. She is still difficult to understand because she is speaking so softly, but she is easier to understand and yesterday. PSYCH: Unable to assess. : Chavis draining light yellow urine. (David Carvajal MD R1) A/P Assessment and Plan Patient is an 81-year-old woman who presents with 4 days of immobilizing right buttock pain found to have a sacral insufficiency fracture on CT scan. She was initially placed in observation for pain control, PT consult with early mobilization, and IV fluids because of her inability to feed herself. The night she was placed in observation, she became apneic and hypoxic with a pulse ox in the 70s and was promptly intubated and transferred to ICU. She was successfully weaned off of the vent on 05/27/17. Still attempting to discern etiology of apnea. Discharge Planning After extubation, patient will need pain control, work with physical therapy, to be able to feed herself prior to discharge. (David Carvajal MD R1) Attending Attestation Patient seen and examined, discussed with resident team. I agree with assessment and management as documented and discussed with me. Pt seen with caregiver, Ashley, at bedside, who reports working with Ms. Mak x 2 weeks. Ashley reports that patient appears much improved and is getting her personality back. She is also eating better. Patient denies SOB and chest pain. At the time of my interview, patient is oriented to person and place, which is an improvement from earlier in the AM. Continue heparin GTT for presumed PE. (Aminata Hsu MD) Problem List: (1) PE (pulmonary thromboembolism) Status: Acute Plan: Patient with history consistent with PE and signs of right ventricular strain on echocardiogram. Elevated troponin of 1.77, 3.23, 3.03. CK-MB 16.9, 16.6, 14.9. BNP 463. Could be due to PE vs. ACS. Likely PE. Patient likely unable to tolerate sitting up motion less for VQ scan. Patient with history of nephrectomy and only 1 kidney as well as unknown possible history of allergy to iodine in EMR. When daughters asked about the iodine allergy, they decided that the risk is not worth the benefit because we are already treating the patient for a PE. - Cardiology consulted, believes PE - heparin drip started last night - cardiac echo shows signs of right ventricular strain consistent with PE. - Defer VQ scan and CTA pulmonary angiogram for reasons above. Prefer CTA pulmonary angiogram over VQ scan, but will pursue in dialogue with patient's family. - Plan to d/c patient on Pradaxa for at least 3 months because it is reversible , and she is a high fall risk. - CM to assist with rehab placement. (2) Respiratory failure Status: Acute Plan: Pt currently extubated. Uncertain etiology, thought to be due to decreased central respiratory drive. Differential includes: Sedative overdose, Encephalitis, Stroke, Central and obstructive sleep apnea, Obesity hypoventilation, Congenital central alveolar hypoventilation, Brainstem disease, Hypothyroidism, Starvation - also considering PE vs CHF vs other Patient found to have elevated cardiac enzymes and echocardiogram with right ventricular strain consistent with PE and new heart murmur. Apnea likely due to acute PE. Patient on heparin IV drip titration protocol CPAP/BiPAP ordered TSH wnl, BNP 463, considering EEG, tube feeds Deferring VQ scan and CTA pulmonary angiogram Appreciate bow making machine operator Imaging: CT head without contrast: nonrevealing. MRI brain: nonrevealing. Echocardiogram shows right ventricular strain and pulmonary hypertension consistent with PE (3) Hypophosphatemia Status: Acute Plan: Patient is to have decreased phosphate of 1.9. Potassium phosphate sodium phosphate 3 times a day (4) Decreased urine output Status: Acute Plan: Patient with decreased urine output. - Half maintenance fluids with normal saline IV at 50 mL per hour until patient' s appetite improves. - We'll continue to monitor and provide IV fluids as needed (5) Sacral insufficiency fracture Status: Acute Plan: Secondary to osteopenia, osteoporosis, Vitamin D deficiency. Provide pain control when safe to do so. PT as soon as possible. (6) Hypertension Status: Chronic Plan: PRN antihypertensive medications initiated Will monitor and adjust medications as needed. (7) Vitamin D deficiency Status: Acute Plan: Patient will need Vitamin D replacement once extubated and able to take PO. (David Carvajal MD R1) Problem Qualifiers (1) Respiratory failure: Qualified Code: J96.01 - Acute respiratory failure with hypoxia (2) Sacral insufficiency fracture: Qualified Code: M84.48XA - Sacral insufficiency fracture, initial encounter David Carvajal MD R1 May 29, 2017 09:03 Aminata Hsu MD May 29, 2017 16:05
--- NOTE | 2017-05-29 09:50 | PD.CARD.PN ---
Subjective Subjective Remarks Pt confused but seems a bit "brighter" to me this am Objective Medications Administered Medications Medications (Trade) Dose Ordered Sig/Bernadette Route PRN Reason Start Time Stop Time Status Last Admin Dose Admin Sodium Chloride (NS Flush) 2 ml BID IV FLUSH 05/25/17 21:00 05/29/17 09:00 Naloxone HCl (Narcan Inj) 0.4 mg UNSCH PRN IV SEE LABEL COMMENTS 05/25/17 19:45 05/26/17 04:22 Senna/Docusate Sodium (Imelda-Colace) 1 tab BID PO 05/25/17 21:00 05/29/17 09:03 Bisacodyl (Dulcolax Supp) 10 mg DAILY PRN RECTAL SEVERE CONSITIPATION 05/25/17 19:45 05/29/17 09:03 Amlodipine Besylate (Norvasc) 5 mg DAILY PO 05/26/17 09:00 05/29/17 09:03 Escitalopram Oxalate (Lexapro) 20 mg DAILY PO 05/26/17 09:00 05/29/17 09:03 Magnesium Oxide (Mag-Ox) 400 mg DAILY PO 05/26/17 09:00 05/29/17 09:03 Pantoprazole Sodium (Protonix) 40 mg DAILY PO 05/26/17 09:00 05/29/17 09:03 Chlorhexidine Gluconate (Peridex 0.12% Liq) 15 ml BID@08,20 MT 05/26/17 20:00 05/27/17 08:00 Labetalol HCl (Trandate Inj) 20 mg Q4H PRN IV PUSH SBP greater than 160mm Hg 05/26/17 11:45 05/29/17 01:30 Hydralazine HCl (Apresoline Inj) 20 mg Q4H PRN IV PUSH SBP greater than 160mm Hg 05/26/17 11:45 05/29/17 09:12 Fentanyl Citrate (fentaNYL INJ) 25 mcg Q8HR PRN IV PUSH PAIN SCALE 5 TO 10 05/26/17 15:15 05/27/17 03:21 Acetaminophen (Ofirmev Inj) 1,000 mg Q8HR IV 05/27/17 14:00 05/29/17 05:40 Aspirin 81 mg 81 mg DAILY PO 05/27/17 12:45 05/29/17 09:03 Heparin Sodium/ Dextrose (Heparin-D5W Inj) 250 ml @ 0 mls/hr TITRATE IV 05/27/17 19:30 05/28/17 19:53 Metoprolol Tartrate 25 mg 25 mg Q8HR PO 05/28/17 12:00 05/29/17 05:40 Sodium Chloride (NS 1000 ml Inj) 1,000 ml @ 50 mls/hr Q20H IV 05/28/17 17:00 05/28/17 19:53 Potassium Phos/ Sodium Phos (K-Phos Neutral) 250 mg Q8HR PO 05/28/17 22:00 05/29/17 05:40 Vital Signs / I&O Vital Signs Date Time Temp Pulse Resp B/P Pulse Ox O2 Delivery O2 Flow Rate FiO2 05/29/17 07:39 100 21 05/29/17 06:00 78 05/29/17 04:00 66 05/29/17 04:00 97.6 66 22 165/79 100 05/29/17 02:00 69 05/29/17 00:00 71 05/29/17 00:00 97.6 71 20 162/74 99 05/28/17 22:00 78 05/28/17 20:07 100 05/28/17 20:00 82 05/28/17 20:00 97.6 82 27 166/86 99 05/28/17 19:00 99 Room Air 05/28/17 18:00 104 05/28/17 16:00 100 05/28/17 16:00 97.4 106 23 161/98 100 05/28/17 14:00 112 05/28/17 12:00 95 05/28/17 12:00 98.1 108 21 151/88 100 05/28/17 10:00 92 I/O 05/28/17 05/28/17 05/28/17 05/29/17 05/29/17 05/29/17 07:00 15:00 23:00 07:00 15:00 23:00 Intake Total 900 ml 866 ml 1324 ml 746 ml Output Total 175 ml 300 ml 250 ml 200 ml Balance 725 ml 566 ml 1074 ml 546 ml Intake Oral 480 ml 240 ml IV Total 900 ml 866 ml 844 ml 506 ml Output Urine Total 175 ml 300 ml 250 ml 200 ml # Bowel Movements 0 0 0 0 Physical Exam GENERAL: confused CARDIOVASCULAR: Regular rate and rhythm without murmurs, gallops, or rubs. RESPIRATORY: Clear to auscultation. Breath sounds equal bilaterally. No wheezes , rales, or rhonchi. GASTROINTESTINAL: Abdomen soft, non-tender, nondistended. Normal active bowel sounds MUSCULOSKELETAL: Extremities without clubbing, cyanosis, or edema. NEURO: disoriented Laboratory Laboratory Tests Test 05/28/17 05/28/17 05/28/17 05/29/17 10:30 17:00 23:00 05:30 Activated Partial 28.6 SEC 41.8 SEC 47.7 SEC 33.0 SEC Thromboplast Time Imaging Last Impressions Chest X-Ray 05/27/17 1340 Signed Impressions: Service Date/Time: Saturday, May 27, 2017 13:51 - CONCLUSION: No acute cardiopulmonary disease. Adelina Sharpe MD Carotid Artery Ultrasound 05/27/17 1243 Signed Impressions: Service Date/Time: Saturday, May 27, 2017 15:21 - CONCLUSION: Significant hemodynamic stenosis involving the origin of the right ICA. Adelina Sharpe MD Head CT 05/26/17 0814 Signed Impressions: Service Date/Time: Friday, May 26, 2017 08:48 - CONCLUSION: Slight atrophic and small vessel ischemic changes without any evidence for acute hemorrhage or mass effect. Adelina Sharpe MD Lower Extremity Ultrasound 05/26/17 0000 Signed Impressions: Service Date/Time: Friday, May 26, 2017 09:16 - CONCLUSION: 1. No DVT. 2. Mixed echogenic mass in the right groin could be pathological lymph node possibly organized hematoma or even a solid mass and clinical correlation is needed. Adelina hSarpe MD Brain MRI 05/26/17 0000 Signed Impressions: Service Date/Time: Friday, May 26, 2017 17:26 - CONCLUSION: Mild chronic white matter changes. Otherwise negative noncontrast MRI of the brain. No acute abnormality demonstrated. Isai Blas MD Pelvis X-Ray 05/25/17 0000 Signed Impressions: Service Date/Time: May 13:51 - CONCLUSION: 1. Concern for sacral insufficiency fracture on the right. Consider CT to further evaluate. 2. Osteopenia. Russ Nice Jr., MD Pelvis CT 05/25/17 0000 Signed Impressions: Service Date/Time: May 15:38 - CONCLUSION: 1. Acute right sacral insufficiency fracture. 2. 3.4 x 2.5 cm low-density lesion involving the right inguinal region. This is poorly characterize on this unenhanced study. The Hounsfield units are approaching that of water and this may relate to a cyst or seroma. It is stable in the short interval from the prior study. 3. Colonic diverticulosis. 4. Absence of the right kidney. Russ Nice Jr., MD Assessment and Plan Problem List: (1) NSTEMI (non-ST elevation myocardial infarction) Assessment and Plan: Pt with elevated troponin, unclear if NSTEMI of coronary origin or from PE (echo did show some right heart strain, perhaps Salvador's sign; would like to get a CTA pulmonary angiogram but pt has contrast allergy; per family this has been the though for decades, but they do not recall any time she has gotten a CT scan w/ contrast and the patient eats shellfish w/o problem. A VQ is unlikely to be helpful given the patient's current confusion and lack of participation. Continue medical mgt w/ heparin ggt for now. Pt's daughter agrees no cath, medical mgt only. Bairon Wheatley MD May 29, 2017 09:50
[2017-05-29] MEDS: SODIUM CHLOR 0.9% 1000 ML INJ 1,000 ML IV SCH (12:16)
[2017-05-29 13:06] LABS: APTT (PATIENT) 55.1 SEC (24.3-30.1)
--- NOTE | 2017-05-29 14:56 | RADRPT ---
EXAM DATE/TIME: 05/29/2017 13:55 [facility] COMPARISON: CHEST SINGLE AP, May 27, 2017, 13:51. INDICATIONS : Hypoxia. DOSE: 8.7 mCi Tc99m MAA IV 0.8 mCi Tc99m DTPA aerosol MEDICAL HISTORY : Chronic obstructive pulmonary disease. Carcinoma, breast. Gastroesophageal reflux disease. Hypertenti on. Renal cancer. SURGICAL HISTORY : Nephrectomy, right. Total knee replacement, left. Total knee replacement, right. Appendectomy. Hyste rectomy. ENCOUNTER: Initial ACUITY: 1 day PAIN SCALE: 0/10 LOCATION: chest TECHNIQUE: Following five minutes of tidal breathing of DTPA aerosol, planar images of the lungs were performed in eight projections. The patient was then injected with MAA, and eight-view perfusion scan was perf ormed. FINDINGS: There is a matched defect involving the lateral segment of the right middle lobe and lateral basilar segment of the right lower lobe. The perfusion defect is smaller than the ventilation defect particul gonzález involving the lower lobe segment. No mismatched defects observed. CONCLUSION: Low probability for pulmonary embolus. Russ Nice Jr., MD on May 29, 2017 at 14:52 Board Certified Radiologist. This report was verified electronically.
--- NOTE | 2017-05-29 15:41 | RADRPT ---
EXAM DATE/TIME: 05/29/2017 14:46 [facility] COMPARISON: No previous studies available for comparison. INDICATIONS : CVA. MEDICAL HISTORY : Carcinoma, breast. Hypertension. Chronic obstructive pulmonary disease. SURGICAL HISTORY : Total knee replacement, left. Right nephrectomy. ENCOUNTER: Initial ACUITY: 2 day PAIN SCORE: 0/10 LOCATION: head Please note a normal MRA of the brain does not entirely exclude the possibility of a small aneurysm, nor the possibility of distal intracranial vessel disease. TECHNIQUE: 3D time of flight MRA was performed. Source images, multiplanar STS MIP, and 3D volume MIP reconstru ctions were reviewed. FINDINGS: There is excellent visualization of the major intracranial arteries out to the second-order branch ve ssels. There is no evidence for aneurysm, vessel truncation or stenosis, and no evidence for vascula r malformation except for marked narrowing of the distal left vertebral artery. CONCLUSION: Normal examination except for some distal narrowing of the left vertebral artery probably chronic. Atilio Felix MD on May 29, 2017 at 15:38 Board Certified Radiologist. This report was verified electronically.
[2017-05-29] MEDS ORDERED: GADODIAMIDE PF 287 MG/ML 20 ML VIAL (for RAD MRI) IV ONE (15:46)
--- NOTE | 2017-05-29 16:08 | RADRPT ---
EXAM DATE/TIME: 05/29/2017 14:30 [facility] COMPARISON: No previous studies available for comparison. INDICATIONS : Right arm pain and swelling. MEDICAL HISTORY : Hypertension. Chronic obstructive pulmonary disease. Gastroesophageal reflux disease. Dyspnea. Osteop orosis. Arthritis. Chemotherapy. Radiation therapy. SURGICAL HISTORY : Hysterectomy. Mastectomy, right. section. Right nephrectomy. Bilateral knee surgery. ENCOUNTER: Initial ACUITY: 2 day PAIN SCORE: Non-responsive LOCATION: Right arm. FINDINGS: There is spontaneous flow documented in the brachial, basilic, cephalic, axillary, and subclavian vei ns. The vessels are compressible and augmentation response is documented. No filling defects are se en. The flow is phasic with respiration. Direction of flow in the jugular vein is caudal. CONCLUSION: Normal examination. There is soft tissue edema within the biceps musculature raise the possibility of a biceps tendon injury. Correlate for elbow or shoulder pain and an appropriate MRI on an outpatient basis could be performed if clinically warranted. Atilio Felix MD on May 29, 2017 at 16:06 Board Certified Radiologist. This report was verified electronically.
--- NOTE | 2017-05-29 16:17 | RADRPT ---
EXAM DATE/TIME: 05/29/2017 14:46 [facility] COMPARISON: No previous studies available for comparison. INDICATIONS : Stroke. CONTRAST: 20 cc Omniscan (gadodiamide) IV MEDICAL HISTORY : Carcinoma, breast. Chronic obstructive pulmonary disease. Hypertension. SURGICAL HISTORY : Total knee replacement, left. Right nephrectomy. ENCOUNTER: Initial ACUITY: 2 day PAIN SCORE: 0/10 LOCATION: head Percent stenosis is calculated using the diameter of the stenotic region over the diameter of the nor mal distal internal carotid artery. TECHNIQUE: Bolus infused MRA of the extracranial circulation was performed using a neurovascular coil. Post pro cessing was performed including rotating subvolume maximum intensity projections of each carotid tabby ry, rotating full volume maximum intensity projections of both carotid arteries, sagittal and coronal sliding thin slab reformations of each carotid artery, and left oblique sliding thin slab reformatio n through the aortic arch to include the origin of the arch branch vessels. FINDINGS: AORTIC ARCH: There is a three vessel origin of the great vessels from the aorta. No evidence of ostial narrowing. A 60% stenosis is seen involving the distal right subclavian artery approaching the junction with th e axillary artery.RIGHT CAROTID: Atherosclerotic plaque is seen involving the proximal ICA extending for approximately 1 cm from its o rigin. This generates a 40% stenosis utilizing NASCET criteria. No appreciable ulceration. The more c ephalad portion of the extracranial ICA is patent. ECA and CCA are patent. LEFT CAROTID: Atherosclerotic plaque is seen on the proximal ICA generating a 20% stenosis utilizing NASCET criteri a. The more cephalad portion of the extracranial ICA, ECA, and CCA are patent. VERTEBRALS: The right vertebral artery is dominant and the main supply to the basilar artery. The left vertebral artery is diffusely small in caliber with a focal 20-30% stenosis at its origin. It contributes to th e basilar artery. CONCLUSION: 1. 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 Clinical evaluation for disparate upper extrem ity blood pressures is suggested. 2. 40% stenosis of the right ICA and 20% stenosis of the left ICA. 3. Dominant right vertebral artery. Russ Nice Jr., MD on May 29, 2017 at 16:08 Board Certified Radiologist. This report was verified electronically.
--- NOTE | 2017-05-29 17:19 | HHI.CCPN ---
Subjective Remarks/Hospital Course 81-year-old woman who presents with 4 days of immobilizing right buttock pain found to have a sacral insufficiency fracture on CT scan. Her pain started about 4 days ago after getting back from a long car ride. It is not normal for her to be in pain. She took half a tramadol last night without relief. Her pain has been so bad that she was immobile, couldn't stand, sit, or walk. She was walking last week. She usually walks with a walker. Her blood pressure has also been elevated as high as 204/110 for last 4 days. Normally, she is very lucid and alert and oriented. In the emergency department she received 4 mg of morphine IV for pain relief and was found later on in altered mental status, respiratory distress, bradyarrhythmia, and hypoxia. She was intubated emergently by ED attending and admitted to ICU. Subjective 05/27: Awake and alert and following commands. Currently on PSV trial. States pain is currently controlled. No bowel movement overnight. 05/28: Extubated yesterday tolerating well. Troponin elevation NSTEMI, troponin peaked at 3.2. cardiology consult echo pending. Consult vacular surgery, for R carotid stenosis. Discussed with daughter Amber Mak at bedside and updated her 05/29: CTA reveals noncritical extracranial cervical occlusive disease. Medical therapy has been recommended and I agree. Controls airway well. Objective Vital Signs Date Time Temp Pulse Resp B/P Pulse Ox O2 Delivery O2 Flow Rate FiO2 05/29/17 10:00 69 05/29/17 08:00 97.7 18 155/70 98 Automatic Cuff 05/29/17 07:39 21 05/29/17 07:00 Room Air 05/26/17 04:10 12.00 Intake and Output 05/28/17 05/28/17 05/28/17 07:59 15:59 23:59 Intake Total 900 ml 866 ml 1324 ml Output Total 175 ml 300 ml 250 ml Balance 725 ml 566 ml 1074 ml Result Diagram: 05/28/17 0359 05/28/17 0359 Imaging Last [address] 05/26/17 0814 Signed Impressions: Service Date/Time: Friday, May 26, 2017 08:48 - CONCLUSION: Slight atrophic and small vessel ischemic changes without any evidence for acute hemorrhage or mass effect. Adelina Sharpe MD Lower Extremity Ultrasound 05/26/17 0000 Signed Impressions: Service Date/Time: Friday, May 26, 2017 09:16 - CONCLUSION: 1. No DVT. 2. Mixed echogenic mass in the right groin could be pathological lymph node possibly organized hematoma or even a solid mass and clinical correlation is needed. Adelina Sharpe MD Chest X-Ray 05/26/17 0000 Signed Impressions: Service Date/Time: Friday, May 26, 2017 05:33 - CONCLUSION: 1. Endotracheal tube as above. Berlin Pierce MD Brain MRI 05/26/17 0000 Signed Impressions: Service Date/Time: Friday, May 26, 2017 17:26 - CONCLUSION: Mild chronic white matter changes. Otherwise negative noncontrast MRI of the brain. No acute abnormality demonstrated. Isai Blas MD Pelvis X-Ray 05/25/17 0000 Signed Impressions: Service Date/Time: May 13:51 - CONCLUSION: 1. Concern for sacral insufficiency fracture on the right. Consider CT to further evaluate. 2. Osteopenia. Russ Nice Jr., MD Pelvis CT 05/25/17 0000 Signed Impressions: Service Date/Time: May 15:38 - CONCLUSION: 1. Acute right sacral insufficiency fracture. 2. 3.4 x 2.5 cm low-density lesion involving the right inguinal region. This is poorly characterize on this unenhanced study. The Hounsfield units are approaching that of water and this may relate to a cyst or seroma. It is stable in the short interval from the prior study. 3. Colonic diverticulosis. 4. Absence of the right kidney. Russ Nice Jr., MD Objective Remarks GENERAL: 81-year-old female, currently on RA SKIN: Warm and dry. No rash HEAD: Normocephalic. EYES: No conjunctival icterus. No injection or drainage. NECK: Supple, trachea midline. Airway widely patent and unobstructed. CARDIOVASCULAR: RRR S1, S2 No m,r. No JVD. RESPIRATORY: Breath sounds equal bilaterally. No accessory muscle use. GASTROINTESTINAL: Abdomen soft, non-tender, nondistended. BS active. MUSCULOSKELETAL: No significant bilateral lower extremity edema NEURO: Alert awake no focal deficits. oriented to person only. A/P Assessment and Plan Neuro/Psych: Acute delirium likely secondary to narcotics Anxiety disorder NOS CT/MRI brain revealed no acute cranial findings Avoid all narcotics Neurology Dr. Rider Previously on Escitapram 20 mg by mouth daily. Resumed Motrin for pain management, Acetaminophen for pain fever CV: NSTEMI History of hypertension Dyslipidemia Right carotid stenosis Start metoprolol 25 mg by mouth every 8 hours Labetalol when necessary for SBP more than 160 Cardiology consult pending, Echo pending Continue aspirin, IV heparin Home Medications Benicar 40 mg by mouth daily Norvasc 5 mill grams by mouth daily. Current and Norvasc 5 mill grams by mouth daily. Currently on normal saline at 100 cc an hour. Hemodynamically stable and not requiring vasopressors and/or anti-hypertensives Vascular surgery Dr. Unger consulted Resp: Acute respiratory failure-resolved History COPD Currently on nasal cannula Chest x-ray revealed no acute cardio pulmonary findings. Duo nebs every 4 hours ordered Ventilator bundle Spontaneous breathing trials right now Dopplers negative for DVT GI: Gastroesophageal reflux disease Currently nothing by mouth -swallow eval Protonix for GI prophylaxis Imelda Colace for bowel regimen : Chavis catheter placed for accurate I's and O's in a critically ill patient Endo: Sliding-scale insulin if necessary to maintain euglycemia Renal: History right nephrectomy Creatinine currently within normal limits Accurate I's and O's Monitor urine output Heme: History of breast cancer MSK: Sacral ala fracture Right thigh mass lymph node versus hematoma versus others Pain management. PT evaluate and treat Noted ultrasound that revealed mass unclear etiology. Further workup if indicated -according to daughter Amber Mak she had swelling of R groin before , but not sure etiology. Check MRI of R groin once clinically more stable ID: Monitor for infection Prophylaxis - GI - Protonix - DVT - SCD/IV heparin Mark Anthony Harry MD May 29, 2017 17:19
[2017-05-29 19:57] LABS: APTT (PATIENT) 46.4 SEC (24.3-30.1)
[2017-05-30] VITALS (13 sets, daily range): BP systolic 118–188; BP diastolic 53–94; PULSE 57–84; RESP 17–25; TEMP 97.1–98.4; O2SAT 94–97
[2017-05-30] MEDS ORDERED: MENTHOL/METHYL SALICYLATE OINT 30 GM TUBE TOPICAL PRN (01:30)
[2017-05-30] MEDS: RESP: SODIUM CHLORIDE 3% 4 ML NEB NEB SCH ×3 (05:03→16:00)
[2017-05-30] MEDS: RESP: ALBUTEROL 2.5 MG/IPRATROPIUM 0.5 MG NEB (SCH) NEB ×4 (05:03→19:45)
[2017-05-30] MEDS: POTASSIUM PHOSPHATE/SODIUM PHOSPHATE 250 MG TAB PO SCH ×3 (05:24→21:33)
[2017-05-30] MEDS: ACETAMINOPHEN 1000 MG/100 ML VIAL IV SCH ×3 (05:24→21:34)
[2017-05-30] MEDS: METOPROLOL TARTRATE 25 MG TAB PO SCH ×3 (05:24→21:33)
[2017-05-30] MEDS: INSULIN NovoLIN REGULAR SUPPLEMENTAL SCALE SQ SCH ×4 (05:58→18:00)
[2017-05-30 06:09] LABS: HEMATOCRIT 32.4 % (35.0-46.0); MEAN CELL VOLUME 94.2 FL (80.0-100.0); MEAN CORPUSCULAR HEMOGLOBIN 30.9 PG (27.0-34.0); MEAN CORPUSCULAR HGB CONC 32.8 % (32.0-36.0); PLATELET COUNT 239 TH/MM3 (150-450); RED BLOOD COUNT 3.44 MIL/MM3 (4.00-5.30); RED CELL DISTRIBUTION WIDTH 13.4 % (11.6-17.2); REVIEW FLAG FINAL; WHITE BLOOD COUNT 7.1 TH/MM3 (4.0-11.0)
[2017-05-30 06:19] LABS: APTT (PATIENT) 54.5 SEC (24.3-30.1)
[2017-05-30] MEDS: HEPARIN-D5W INJ 250 ML IV SCH (07:48)
[2017-05-30] MEDS: CHLORHEXIDINE 0.12% (ORAL KIT) 15 ML CUP MT SCH ×2 (08:00→20:00)
[2017-05-30] MEDS: SODIUM CHLOR 0.9% 1000 ML INJ 1,000 ML IV SCH (08:16)
[2017-05-30] MEDS: hydrALAZINE HCL 20 MG/ML VIAL IV PUSH PRN (08:39)
--- NOTE | 2017-05-30 08:44 | HHI.CCPN ---
Subjective Remarks/Hospital Course 81-year-old woman who presents with 4 days of immobilizing right buttock pain found to have a sacral insufficiency fracture on CT scan. Her pain started about 4 days ago after getting back from a long car ride. It is not normal for her to be in pain. She took half a tramadol last night without relief. Her pain has been so bad that she was immobile, couldn't stand, sit, or walk. She was walking last week. She usually walks with a walker. Her blood pressure has also been elevated as high as 204/110 for last 4 days. Normally, she is very lucid and alert and oriented. In the emergency department she received 4 mg of morphine IV for pain relief and was found later on in altered mental status, respiratory distress, bradyarrhythmia, and hypoxia. She was intubated emergently by ED attending and admitted to ICU. Subjective 05/27: Awake and alert and following commands. Currently on PSV trial. States pain is currently controlled. No bowel movement overnight. 05/28: Extubated yesterday tolerating well. Troponin elevation NSTEMI, troponin peaked at 3.2. cardiology consult echo pending. Consult vacular surgery, for R carotid stenosis. Discussed with daughter Amber Mak at bedside and updated her 05/29: CTA reveals noncritical extracranial cervical occlusive disease. Medical therapy has been recommended and I agree. Controls airway well. 05/30: Stable hemodynamics and respiratory function. Controls airway well. Transfer to floor. Objective Vital Signs Date Time Temp Pulse Resp B/P Pulse Ox O2 Delivery O2 Flow Rate FiO2 05/30/17 06:00 58 05/30/17 04:00 97.7 21 149/76 97 05/29/17 20:21 21 05/29/17 19:00 Room Air Intake and Output 05/29/17 05/29/17 05/29/17 07:59 15:59 23:59 Intake Total 746 ml 916 ml 1026 ml Output Total 200 ml 450 ml 300 ml Balance 546 ml 466 ml 726 ml Result Diagram: 05/30/17 0545 05/28/17 0359 Imaging Last [address] 05/26/17 0814 Signed Impressions: Service Date/Time: Friday, May 26, 2017 08:48 - CONCLUSION: Slight atrophic and small vessel ischemic changes without any evidence for acute hemorrhage or mass effect. Adelina Sharpe MD Lower Extremity Ultrasound 05/26/17 0000 Signed Impressions: Service Date/Time: Friday, May 26, 2017 09:16 - CONCLUSION: 1. No DVT. 2. Mixed echogenic mass in the right groin could be pathological lymph node possibly organized hematoma or even a solid mass and clinical correlation is needed. Adelina Sharpe MD Chest X-Ray 05/26/17 0000 Signed Impressions: Service Date/Time: Friday, May 26, 2017 05:33 - CONCLUSION: 1. Endotracheal tube as above. Berlin Pierce MD Brain MRI 05/26/17 0000 Signed Impressions: Service Date/Time: Friday, May 26, 2017 17:26 - CONCLUSION: Mild chronic white matter changes. Otherwise negative noncontrast MRI of the brain. No acute abnormality demonstrated. Isai Blas MD Pelvis X-Ray 05/25/17 0000 Signed Impressions: Service Date/Time: May 13:51 - CONCLUSION: 1. Concern for sacral insufficiency fracture on the right. Consider CT to further evaluate. 2. Osteopenia. Russ Nice Jr., MD Pelvis CT 05/25/17 0000 Signed Impressions: Service Date/Time: May 15:38 - CONCLUSION: 1. Acute right sacral insufficiency fracture. 2. 3.4 x 2.5 cm low-density lesion involving the right inguinal region. This is poorly characterize on this unenhanced study. The Hounsfield units are approaching that of water and this may relate to a cyst or seroma. It is stable in the short interval from the prior study. 3. Colonic diverticulosis. 4. Absence of the right kidney. Russ Nice Jr., MD Objective Remarks GENERAL: 81-year-old female SKIN: Warm and dry. No rash HEAD: Normocephalic. EYES: No conjunctival icterus. No injection or drainage. NECK: Supple, trachea midline. Airway widely patent and unobstructed. CARDIOVASCULAR: RRR S1, S2 No m,r. No JVD. RESPIRATORY: Breath sounds equal bilaterally. No accessory muscle use. Comfortable pattern. GASTROINTESTINAL: Abdomen soft, non-tender, nondistended. BS active. MUSCULOSKELETAL: No significant bilateral lower extremity edema NEURO: Alert awake no focal deficits. oriented to person only. Aware she is in a hospital. A/P Assessment and Plan Neuro/Psych: Acute delirium likely secondary to narcotics Anxiety disorder NOS CT/MRI brain revealed no acute cranial findings Avoid all narcotics Neurology Dr. Rider Previously on Escitapram 20 mg by mouth daily. Resumed Motrin for pain management, Acetaminophen for pain fever CV: NSTEMI History of hypertension Dyslipidemia Right carotid stenosis Start metoprolol 25 mg by mouth every 8 hours Labetalol when necessary for SBP more than 160 Cardiology consult pending, Echo pending Continue aspirin, IV heparin Home Medications Benicar 40 mg by mouth daily Norvasc 5 mill grams by mouth daily. Current and Norvasc 5 mill grams by mouth daily. Currently on normal saline at 100 cc an hour. Hemodynamically stable and not requiring vasopressors and/or anti-hypertensives Resp: Acute respiratory failure-resolved History COPD Currently on nasal cannula Chest x-ray revealed no acute cardio pulmonary findings. Duo nebs every 4 hours ordered Ventilator bundle Spontaneous breathing trials right now Dopplers negative for DVT GI: Gastroesophageal reflux disease Currently nothing by mouth -swallow eval Protonix for GI prophylaxis Imelda Colace for bowel regimen : Chavis catheter placed for accurate I's and O's in a critically ill patient Endo: Sliding-scale insulin if necessary to maintain euglycemia Renal: History right nephrectomy Creatinine currently within normal limits Accurate I's and O's Monitor urine output Heme: History of breast cancer MSK: Sacral ala fracture Right thigh mass lymph node versus hematoma versus others Pain management. PT evaluate and treat Noted ultrasound that revealed mass unclear etiology. Further workup if indicated -according to daughter Amber Mak she had swelling of R groin before , but not sure etiology. Check MRI of R groin once clinically more stable ID: Monitor for infection Prophylaxis - GI - Protonix - DVT - SCD/IV heparin Mark Anthony Harry MD May 30, 2017 08:44
[2017-05-30] MEDS: SODIUM CHLORIDE 0.9% FLUSH 10 ML FLUSH IV FLUSH SCH ×2 (09:00→21:00)
[2017-05-30] MEDS: DOCUSATE SODIUM 50 MG/SENNA 8.6 MG TAB PO SCH ×2 (09:41→21:33)
[2017-05-30] MEDS: MAGNESIUM OXIDE 400 MG TAB PO SCH (09:42)
[2017-05-30] MEDS: amLODIPine BESYLATE 5 MG TAB PO SCH (09:42)
[2017-05-30] MEDS: ESCITALOPRAM OXALATE 20 MG TAB PO SCH (09:42)
[2017-05-30] MEDS: PANTOPRAZOLE SOD 40 MG DELAYED RELEASE TAB PO SCH (09:42)
[2017-05-30] MEDS: ASPIRIN 81 MG CHEW TAB CHEW SCH (09:43)
--- NOTE | 2017-05-30 11:50 | HHI.FPPN ---
Subjective Remarks No acute events overnight. Afebrile and vital signs stable overnight. Patient is doing much better today. She denies any chest pain, shortness of breath or any pain anywhere else in her body. She does report that she is scared about her prognosis. However I reassured the patient. I also called her daughter Bre to update her that the VQ scan was negative for PE, so we stopped the heparin drip, and we'll proceed with aspirin and Plavix as medical therapy for NSTEMI. We also discussed the possibility of a TIA, which is more likely given her carotid stenosis. I also told Bre about my conversation with the radiologist in which the radiologist compared a CT of her pelvis from February to the recent ultrasound image of her right groin. The radiologist recommended follow-up ultrasound in 6 months. This afternoon, patient knew her name, who the president is but not the year, and after telling her where she is and why she is here, she remembered and repeated back to me. (David Carvajal MD R1) Objective Vitals Vital Signs Date Time Temp Pulse Resp B/P Pulse Ox O2 Delivery O2 Flow Rate FiO2 05/30/17 10:02 96 21 05/30/17 06:00 58 05/30/17 04:00 62 05/30/17 04:00 97.7 62 21 149/76 97 05/30/17 02:00 60 05/30/17 00:00 58 05/30/17 00:00 97.8 58 25 124/59 97 05/29/17 22:00 70 05/29/17 20:21 95 21 05/29/17 20:00 97.8 63 21 141/67 96 05/29/17 20:00 60 05/29/17 19:00 97 Room Air 05/29/17 18:00 63 05/29/17 16:48 17 05/29/17 16:00 77 05/29/17 16:00 97.8 77 19 137/73 98 05/29/17 14:00 72 05/29/17 12:00 63 05/29/17 12:00 98.0 63 24 142/68 97 I/O 05/29/17 05/29/17 05/29/17 05/30/17 05/30/17 05/30/17 06:59 14:59 22:59 06:59 14:59 22:59 Intake Total 746 ml 916 ml 1026 ml 640 ml Output Total 200 ml 450 ml 300 ml 250 ml Balance 546 ml 466 ml 726 ml 390 ml Intake Oral 240 ml 360 ml 480 ml 240 ml IV Total 506 ml 556 ml 546 ml 400 ml Output Urine Total 200 ml 450 ml 300 ml 250 ml # Bowel Movements 0 0 0 0 (David Carvajal MD R1) Result Diagram: 05/30/17 0545 05/28/17 0359 Imaging Last Impressions Neck Magnetic Resonance Angiography 05/29/17 1051 Signed Impressions: Service Date/Time: Monday, May 29, 2017 14:46 - CONCLUSION: 1. 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 Clinical evaluation for disparate upper extremity blood pressures is suggested. 2. 40%% stenosis of the right ICA and 20%% stenosis of the left ICA. 3. Dominant right vertebral artery. Russ Nice Jr., MD Head Magnetic Resonance Angiography 05/29/17 1051 Signed Impressions: Service Date/Time: Monday, May 29, 2017 14:46 - CONCLUSION: Normal examination except for some distal narrowing of the left vertebral artery probably chronic. Atilio Felix MD Upper Extremity Ultrasound 05/29/17 0000 Signed Impressions: Service Date/Time: Monday, May 29, 2017 14:30 - CONCLUSION: Normal examination. There is soft tissue edema within the biceps musculature raise the possibility of a biceps tendon injury. Correlate for elbow or shoulder pain and an appropriate MRI on an outpatient basis could be performed if clinically warranted. Atilio Felix MD Lung Scan- Nuclear Medicine 05/29/17 0000 Signed Impressions: Service Date/Time: Monday, May 29, 2017 13:55 - CONCLUSION: Low probability for pulmonary embolus. Russ Nice Jr., MD Chest X-Ray 05/27/17 1340 Signed Impressions: Service Date/Time: Saturday, May 27, 2017 13:51 - CONCLUSION: No acute cardiopulmonary disease. Adelina Sharpe MD Carotid Artery Ultrasound 05/27/17 1243 Signed Impressions: Service Date/Time: Saturday, May 27, 2017 15:21 - CONCLUSION: Significant hemodynamic stenosis involving the origin of the right ICA. Adelina Sharpe MD Head CT 05/26/17 0814 Signed Impressions: Service Date/Time: Friday, May 26, 2017 08:48 - CONCLUSION: Slight atrophic and small vessel ischemic changes without any evidence for acute hemorrhage or mass effect. Adelina Sharpe MD Lower Extremity Ultrasound 05/26/17 0000 Signed Impressions: Service Date/Time: Friday, May 26, 2017 09:16 - CONCLUSION: 1. No DVT. 2. Mixed echogenic mass in the right groin could be pathological lymph node possibly organized hematoma or even a solid mass and clinical correlation is needed. Adelina Sharpe MD Brain MRI 05/26/17 0000 Signed Impressions: Service Date/Time: Friday, May 26, 2017 17:26 - CONCLUSION: Mild chronic white matter changes. Otherwise negative noncontrast MRI of the brain. No acute abnormality demonstrated. Isai Blas MD Pelvis X-Ray 05/25/17 Signed Impressions: Service Date/Time: May 13:51 - CONCLUSION: 1. Concern for sacral insufficiency fracture on the right. Consider CT to further evaluate. 2. Osteopenia. Russ Nice Jr., MD Pelvis CT 05/25/17 0000 Signed Impressions: Service Date/Time: May 15:38 - CONCLUSION: 1. Acute right sacral insufficiency fracture. 2. 3.4 x 2.5 cm low-density lesion involving the right inguinal region. This is poorly characterize on this unenhanced study. The Hounsfield units are approaching that of water and this may relate to a cyst or seroma. It is stable in the short interval from the prior study. 3. Colonic diverticulosis. 4. Absence of the right kidney. Russ Nice Jr., MD Objective Remarks GENERAL: Extubated, patient was asleep and difficult to arouse this morning. However, when I went back to see her this afternoon, she was awake and alert. SKIN: No rashes, no jaundice. HEENT: Significant retrognathia. No scleral icterus, no conjunctival injection. Pupils 2mm and reactive bilaterally. NECK: Supple. CV: Regular rate and regular rhythm, S1 S2. CHEST/PULM: CTAB anteriorly. ABD/GI: +BS, soft, nondistended EXT: Lymphedema of right arm. Patient moving all limbs spontaneously. Soft restraints in place. NEURO: Patient is awake and alert, oriented to person and president, and she remembers where she is and why she is here after I tell her. She is much easier to understand today. PSYCH: Unable to assess. : Chavis draining yellow urine. (David Carvajal MD R1) A/P Assessment and Plan Patient is an 81-year-old woman who presents with 4 days of immobilizing right buttock pain found to have a sacral insufficiency fracture on CT scan. She was initially placed in observation for pain control, PT consult with early mobilization, and IV fluids because of her inability to feed herself. The night she was placed in observation, she became apneic and hypoxic with a pulse ox in the 70s and was promptly intubated and transferred to ICU. She was successfully weaned off of the vent on 05/27/17. Still attempting to discern etiology of apnea. Discharge Planning After extubation, patient will need pain control, work with physical therapy, to be able to feed herself prior to discharge. (David Carvajal MD R1) Attending Attestation Patient seen, examined, and discussed with resident team. I agree with assessment and management as documented and discussed with me. Pt improving clinically. Caregiver Ashley at bedside who reports she is looking better. Anticipate discharge tomorrow. (Aminata Hsu MD) Problem List: (1) NSTEMI (non-ST elevation myocardial infarction) Status: Acute Plan: EKG with ST depressions in V4, V5, V6. Elevated troponin of 1.77, 3.23, 3.03. CK-MB 16.9, 16.6, 14.9. BNP 463. Could be due to PE vs. ACS. Likely NSTEMI. - Cardiology consulted - Aspirin AK, beta jeremy IV, heparin drip stopped today - Medical management with aspirin and Plavix - cardiac echo shows mild pulmonary hypertension - VQ scan of lungs show a low probability of PE (2) PE (pulmonary thromboembolism) Status: Acute Plan: PE less likely with VQ scan showing low probability of PE. - heparin drip stopped today - cardiac echo shows signs of right ventricular strain consistent with pulmonary hypertension - CM to assist with rehab placement. (3) Respiratory failure Status: Acute Plan: Pt currently extubated. Uncertain etiology, most likely cyclical relationship between undiagnosed KATALINA and ACS/NSTEMI Patient found to have elevated cardiac enzymes and echocardiogram with right ventricular strain consistent with pulmonary hypertension, consistent with KATALINA. Patient also reports a history of snoring and feeling tired throughout the day. Recommended outpatient sleep study and likely initiation of CPAP. CPAP/BiPAP ordered TSH wnl, BNP 463 VQ scan showed low probability of PE Appreciate surveillance investigator Imaging: CT head without contrast: nonrevealing. MRI brain: nonrevealing. Echocardiogram shows right ventricular strain and pulmonary hypertension consistent with PE (4) Hypophosphatemia Status: Acute Plan: Patient is to have decreased phosphate of 1.9. Potassium phosphate sodium phosphate 3 times a day Repeat lab testing tomorrow (5) Decreased urine output Status: Acute Plan: Patient with decreased urine output. - Half maintenance fluids with normal saline IV at 50 mL per hour until patient' s appetite improves. - We'll continue to monitor and provide IV fluids as needed (6) Sacral insufficiency fracture Status: Acute Plan: Secondary to osteopenia, osteoporosis, Vitamin D deficiency. Provide pain control when safe to do so. PT as soon as possible. (7) Hypertension Status: Chronic Plan: PRN antihypertensive medications initiated Will monitor and adjust medications as needed. (8) Vitamin D deficiency Status: Acute Plan: Patient will need Vitamin D replacement once extubated and able to take PO. (David Carvajal MD R1) Problem Qualifiers (1) Respiratory failure: Qualified Code: J96.01 - Acute respiratory failure with hypoxia (2) Sacral insufficiency fracture: Qualified Code: M84.48XA - Sacral insufficiency fracture, initial encounter David Carvajal MD R1 May 30, 2017 11:50 Aminata Hsu MD May 30, 2017 20:40
[2017-05-30] MEDS: ACETAMINOPHEN 325 MG TAB PO PRN (18:53)
[2017-05-31] VITALS (11 sets, daily range): BP systolic 125–159; BP diastolic 69–80; PULSE 54–83; RESP 17–28; TEMP 97.3–97.6; O2SAT 95–97
[2017-05-31] MEDS: RESP: ALBUTEROL 2.5 MG/IPRATROPIUM 0.5 MG NEB (SCH) NEB ×3 (03:58→15:50)
[2017-05-31] MEDS: RESP: SODIUM CHLORIDE 3% 4 ML NEB NEB SCH ×2 (04:00→21:32)
[2017-05-31] MEDS: SODIUM CHLOR 0.9% 1000 ML INJ 1,000 ML IV SCH (04:16)
[2017-05-31] MEDS: METOPROLOL TARTRATE 25 MG TAB PO SCH ×3 (05:47→20:55)
[2017-05-31] MEDS: ACETAMINOPHEN 1000 MG/100 ML VIAL IV SCH ×3 (05:47→20:56)
[2017-05-31] MEDS: POTASSIUM PHOSPHATE/SODIUM PHOSPHATE 250 MG TAB PO SCH ×3 (05:48→20:55)
[2017-05-31] MEDS: INSULIN NovoLIN REGULAR SUPPLEMENTAL SCALE SQ SCH ×4 (06:00→17:48)
--- NOTE | 2017-05-31 08:01 | HHI.PR ---
Objective Vital Signs Date Time Temp Pulse Resp B/P Pulse Ox O2 Delivery O2 Flow Rate FiO2 05/31/17 04:30 97.6 68 17 159/80 97 05/31/17 03:59 97 21 05/31/17 01:17 97 21 05/31/17 00:23 97.6 62 17 133/71 96 05/30/17 23:32 Room Air 05/30/17 20:13 97.5 69 17 137/66 96 05/30/17 19:47 96 21 05/30/17 16:56 97.1 62 20 122/53 96 05/30/17 16:00 72 05/30/17 16:00 98.2 72 19 143/75 94 05/30/17 14:00 80 05/30/17 12:00 80 05/30/17 12:00 98.4 66 20 118/59 94 05/30/17 10:02 96 21 05/30/17 10:00 75 05/30/17 08:00 84 05/30/17 08:00 98.2 57 23 188/94 96 I/O 05/30/17 05/30/17 05/30/17 05/31/17 05/31/17 05/31/17 07:00 15:00 23:00 07:00 15:00 23:00 Intake Total 640 ml 1151 ml 120 ml 611 ml Output Total 250 ml 450 ml 300 ml 750 ml Balance 390 ml 701 ml -180 ml -139 ml Intake Oral 240 ml 480 ml 120 ml 120 ml IV Total 400 ml 671 ml 491 ml Output Urine Total 250 ml 450 ml 300 ml 750 ml # Bowel Movements 0 1 Result Diagram: 05/30/17 0545 05/28/17 0359 Objective Remarks awake alert awakens ok sr moves bue well Assessment and Plan Assessment and Plan imp mri neg b12 ok us looks like tight r ica nl ldl mra neck and cow neg fu echo neg ok neuro pedroza asa ok will sign off Toni Schmidt MD May 31, 2017 08:01
[2017-05-31] MEDS: MAGNESIUM OXIDE 400 MG TAB PO SCH (08:27)
[2017-05-31] MEDS: PANTOPRAZOLE SOD 40 MG DELAYED RELEASE TAB PO SCH (08:27)
[2017-05-31] MEDS: amLODIPine BESYLATE 5 MG TAB PO SCH (08:27)
[2017-05-31] MEDS: ESCITALOPRAM OXALATE 20 MG TAB PO SCH (08:27)
[2017-05-31] MEDS: ASPIRIN 81 MG CHEW TAB CHEW SCH (08:27)
[2017-05-31] MEDS: DOCUSATE SODIUM 50 MG/SENNA 8.6 MG TAB PO SCH ×2 (08:27→20:55)
[2017-05-31] MEDS: CHLORHEXIDINE 0.12% (ORAL KIT) 15 ML CUP MT SCH ×2 (08:28→20:00)
[2017-05-31] MEDS: SODIUM CHLORIDE 0.9% FLUSH 10 ML FLUSH IV FLUSH SCH ×2 (08:28→20:56)
[2017-05-31] MEDS: CLOPIDOGREL 75 MG TAB PO SCH (08:28)
[2017-05-31 08:32] LABS: AUTOMATED NEUTROPHIL # 3.8 TH/MM3 (1.8-7.7); BASOPHIL % 0.1 % (0.0-2.0); EOSINOPHIL # 0.1 TH/MM3 (0-0.4); EOSINOPHIL % 2.3 % (0.0-4.0); HEMATOCRIT 30.6 % (35.0-46.0); HEMO FLAGS DIFF FINAL; LYMPH % 18.9 % (9.0-44.0); LYMPHOCYTE # 1.1 TH/MM3 (1.0-4.8); MEAN CELL VOLUME 93.2 FL (80.0-100.0); MEAN CORPUSCULAR HEMOGLOBIN 32.2 PG (27.0-34.0); MEAN CORPUSCULAR HGB CONC 34.5 % (32.0-36.0); MONO % 11.1 % (0.0-8.0); NEUT % 67.6 % (16.0-70.0); PLATELET COUNT 183 TH/MM3 (150-450); RED BLOOD COUNT 3.28 MIL/MM3 (4.00-5.30); RED CELL DISTRIBUTION WIDTH 13.4 % (11.6-17.2); WHITE BLOOD COUNT 5.6 TH/MM3 (4.0-11.0)
[2017-05-31 08:33] LABS: APTT (PATIENT) 29.5 SEC (24.3-30.1)
[2017-05-31 09:00] LABS: MAGNESIUM 1.9 MG/DL (1.5-2.5); POTASSIUM 3.7 MEQ/L (3.5-5.1)
[2017-05-31] MEDS ORDERED: ERGOCALCIFEROL (VIT D2) 50,000 UNIT CAP PO SCH (09:00)
--- NOTE | 2017-05-31 10:15 | HHI.FPPN ---
Subjective Remarks Acute events overnight. For some mild hypertension, patient has remained afebrile vital signs stable. Patient reports feeling lousy this morning and that she had a difficult night overnight. She is unable to tell me more specifically what is bothering her. But she does endorse some abdominal pain and some right buttock pain. She is alert and oriented to person, but not place or time or situation. Patient still not feeding herself well, so will continue gentle IVF hydration. (David Carvajal MD R1) Objective Vitals Vital Signs Date Time Temp Pulse Resp B/P Pulse Ox O2 Delivery O2 Flow Rate FiO2 05/31/17 10:06 96 05/31/17 07:59 97.5 67 20 144/70 97 05/31/17 04:30 97.6 68 17 159/80 97 05/31/17 03:59 97 21 05/31/17 01:17 97 21 05/31/17 00:23 97.6 62 17 133/71 96 05/30/17 23:32 Room Air 05/30/17 20:13 97.5 69 17 137/66 96 05/30/17 19:47 96 21 05/30/17 16:56 97.1 62 20 122/53 96 05/30/17 16:00 72 05/30/17 16:00 98.2 72 19 143/75 94 05/30/17 14:00 80 05/30/17 12:00 80 05/30/17 12:00 98.4 66 20 118/59 94 I/O 05/30/17 05/30/17 05/30/17 05/31/17 05/31/17 05/31/17 07:00 15:00 23:00 07:00 15:00 23:00 Intake Total 640 ml 1151 ml 120 ml 611 ml Output Total 250 ml 450 ml 300 ml 750 ml Balance 390 ml 701 ml -180 ml -139 ml Intake Oral 240 ml 480 ml 120 ml 120 ml IV Total 400 ml 671 ml 491 ml Output Urine Total 250 ml 450 ml 300 ml 750 ml # Bowel Movements 0 1 (David Carvajal MD R1) Result Diagram: 05/31/17 0742 05/31/17 0742 Imaging Last Impressions Neck Magnetic Resonance Angiography 05/29/17 1051 Signed Impressions: Service Date/Time: Monday, May 29, 2017 14:46 - CONCLUSION: 1. 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 Clinical evaluation for disparate upper extremity blood pressures is suggested. 2. 40%% stenosis of the right ICA and 20%% stenosis of the left ICA. 3. Dominant right vertebral artery. Russ Nice Jr., MD Head Magnetic Resonance Angiography 05/29/17 1051 Signed Impressions: Service Date/Time: Monday, May 29, 2017 14:46 - CONCLUSION: Normal examination except for some distal narrowing of the left vertebral artery probably chronic. Atilio Felix MD Upper Extremity Ultrasound 05/29/17 0000 Signed Impressions: Service Date/Time: Monday, May 29, 2017 14:30 - CONCLUSION: Normal examination. There is soft tissue edema within the biceps musculature raise the possibility of a biceps tendon injury. Correlate for elbow or shoulder pain and an appropriate MRI on an outpatient basis could be performed if clinically warranted. Atilio Felix MD Lung Scan- Nuclear Medicine 05/29/17 0000 Signed Impressions: Service Date/Time: Monday, May 29, 2017 13:55 - CONCLUSION: Low probability for pulmonary embolus. Russ Nice Jr., MD Chest X-Ray 05/27/17 1340 Signed Impressions: Service Date/Time: Saturday, May 27, 2017 13:51 - CONCLUSION: No acute cardiopulmonary disease. Adelina Sharpe MD Carotid Artery Ultrasound 05/27/17 1243 Signed Impressions: Service Date/Time: Saturday, May 27, 2017 15:21 - CONCLUSION: Significant hemodynamic stenosis involving the origin of the right ICA. Adelina Sharpe MD Head CT 05/26/17 0814 Signed Impressions: Service Date/Time: Friday, May 26, 2017 08:48 - CONCLUSION: Slight atrophic and small vessel ischemic changes without any evidence for acute hemorrhage or mass effect. Adelina Sharpe MD Lower Extremity Ultrasound 05/26/17 0000 Signed Impressions: Service Date/Time: Friday, May 26, 2017 09:16 - CONCLUSION: 1. No DVT. 2. Mixed echogenic mass in the right groin could be pathological lymph node possibly organized hematoma or even a solid mass and clinical correlation is needed. Adelina Sharpe MD Brain MRI 05/26/17 0000 Signed Impressions: Service Date/Time: Friday, May 26, 2017 17:26 - CONCLUSION: Mild chronic white matter changes. Otherwise negative noncontrast MRI of the brain. No acute abnormality demonstrated. Isai Blas MD Pelvis X-Ray 05/25/17 0000 Signed Impressions: Service Date/Time: May 13:51 - CONCLUSION: 1. Concern for sacral insufficiency fracture on the right. Consider CT to further evaluate. 2. Osteopenia. Russ Nice Jr., MD Pelvis CT 05/25/17 0000 Signed Impressions: Service Date/Time: May 15:38 - CONCLUSION: 1. Acute right sacral insufficiency fracture. 2. 3.4 x 2.5 cm low-density lesion involving the right inguinal region. This is poorly characterize on this unenhanced study. The Hounsfield units are approaching that of water and this may relate to a cyst or seroma. It is stable in the short interval from the prior study. 3. Colonic diverticulosis. 4. Absence of the right kidney. Russ Nice Jr., MD Objective Remarks GENERAL: Extubated, patient was awake and alert this morning. SKIN: No rashes, no jaundice. HEENT: Significant retrognathia. No scleral icterus, no conjunctival injection. Pupils 2mm and reactive bilaterally. NECK: Supple. CV: Regular rate and regular rhythm, S1 S2. CHEST/PULM: CTAB anteriorly. ABD/GI: +BS, soft, nondistended EXT: Lymphedema of right arm. Patient moving all limbs spontaneously. Soft restraints in place. NEURO: She is alert and oriented to person, but not place or time or situation. She is easy to understand today. PSYCH: Unable to assess. : Chavis draining yellow urine. (David Carvajal MD R1) A/P Assessment and Plan Patient is an 81-year-old woman who presents with 4 days of immobilizing right buttock pain found to have a sacral insufficiency fracture on CT scan. She was initially placed in observation for pain control, PT consult with early mobilization, and IV fluids because of her inability to feed herself. The night she was placed in observation, she became apneic and hypoxic with a pulse ox in the 70s and was promptly intubated and transferred to ICU. She was successfully weaned off of the vent on 05/27/17. Attempted to discern etiology of apnea, likely cyclical problem of undiagnosed KATALINA and NSTEMI. Discharge Planning Patient is medically cleared for discharge to inpatient rehabilitation for physical therapy and occupational therapy pending her ability to eat enough to not need IV fluids. (David Carvajal MD R1) Attending Attestation Patient seen and examined, discussed with Dr. Carvajal. I agree with assessment and management as documented and discussed with me. PT copmlains of sacral pain today. Seen with caregiver Ashley at bedside. Discharge to SNF / rehab once arrangements can be made. (Aminata Hsu MD) Problem List: (1) NSTEMI (non-ST elevation myocardial infarction) Status: Acute Plan: EKG with ST depressions in V4, V5, V6. Elevated troponin of 1.77, 3.23, 3.03. CK-MB 16.9, 16.6, 14.9. BNP 463. Could be due to PE vs. ACS. Likely NSTEMI. - Cardiology consulted - Aspirin [place], beta jeremy, heparin drip stopped - Medical management with aspirin and Plavix and beta jeremy, all to be continued upon discharge - cardiac echo shows mild pulmonary hypertension, likely from KATALINA, which likely contributed to NSTEMI - VQ scan of lungs show a low probability of PE (2) Respiratory failure Status: Acute Plan: Pt currently extubated. Uncertain etiology, most likely cyclical relationship between undiagnosed KATALINA and ACS/NSTEMI Patient found to have elevated cardiac enzymes and echocardiogram with right ventricular strain consistent with pulmonary hypertension, consistent with KATALINA. Patient also reports a history of snoring and feeling tired throughout the day. Recommended outpatient sleep study and likely initiation of CPAP. CPAP/BiPAP ordered TSH wnl, BNP 463 VQ scan showed low probability of PE Appreciate semiconductor wafers marker Imaging: CT head without contrast: nonrevealing. MRI brain: nonrevealing. Echocardiogram shows right ventricular strain and pulmonary hypertension consistent with PE (3) Hypophosphatemia Status: Resolved Plan: Patient is to have decreased phosphate of 1.9. Potassium phosphate sodium phosphate 3 times a day Repeat lab testing shows resolution with normal phosphorus of 2.7. (4) Decreased urine output Status: Acute Plan: Patient with decreased urine output. - Half maintenance fluids with normal saline IV at 50 mL per hour until patient' s appetite improves. (5) Sacral insufficiency fracture Status: Acute Plan: Secondary to osteopenia, osteoporosis, Vitamin D deficiency. Provide pain control when safe to do so. PT as soon as possible. Vitamin D supplement (50,000 units per week for 8 weeks) Calcium supplement (calcium citrate while patient is on PPI) (6) Hypertension Status: Chronic Plan: PRN antihypertensive medications initiated Will monitor and adjust medications as needed. (7) Vitamin D deficiency Status: Acute Plan: Patient will need Vitamin D replacement once extubated and able to take PO. Vitamin D supplement (50,000 units per week for 8 weeks) Calcium supplement (calcium citrate while patient is on PPI) (David Carvajal MD R1) Problem Qualifiers (1) Respiratory failure: Qualified Code: J96.01 - Acute respiratory failure with hypoxia (2) Sacral insufficiency fracture: Qualified Code: M84.48XA - Sacral insufficiency fracture, initial encounter David Carvajal MD R1 May 31, 2017 10:15 Aminata Hsu MD May 31, 2017 20:18
[2017-05-31] MEDS ORDERED: IBUP400T20 PO (11:42)
[2017-05-31] MEDS ORDERED: PLAV75TA29 PO (11:42)
[2017-05-31] MEDS ORDERED: ACET1TAB86 PO (11:42)
[2017-05-31] MEDS ORDERED: ERGO1CAP30 PO (11:42)
[2017-05-31] MEDS ORDERED: METO25TA3 PO (11:42)
--- NOTE | 2017-05-31 11:44 | HHI.DCPOC ---
Discharge Care Plan Diagnosis: (1) NSTEMI (non-ST elevation myocardial infarction) (2) Respiratory failure (3) Sacral insufficiency fracture Goals to Promote Your Health * To prevent worsening of your condition and complications, please participate fully in physical therapy and occupational therapy. Please take medications as prescribed. * To maintain your health at the optimal level, please follow up with your doctor. Directions to Meet Your Goals Take your medications as prescribed Follow your dietary instruction Follow activity as directed Keep your appointments as scheduled Take your immunizations and boosters as scheduled If your symptoms worsen call your PCP, if no PCP go to Urgent Care Center or Emergency Room Smoking is Dangerous to Your Health. Avoid second hand smoke Call the 24-hour hour crisis hotline for domestic abuse at David Carvajal MD R1 May 31, 2017 11:44
[2017-05-31] MEDS ORDERED: CALC950T2 PO (14:18)
[2017-06-01] VITALS (7 sets, daily range): BP systolic 138–172; BP diastolic 77–89; PULSE 64–72; RESP 18; TEMP 97–98.1; O2SAT 94–97
[2017-06-01] MEDS: ACETAMINOPHEN 325 MG TAB PO PRN (00:16)
[2017-06-01] MEDS: SODIUM CHLOR 0.9% 1000 ML INJ 1,000 ML IV SCH (00:16)
[2017-06-01] MEDS: RESP: SODIUM CHLORIDE 3% 4 ML NEB NEB SCH ×2 (03:45→12:33)
[2017-06-01] MEDS: INSULIN NovoLIN REGULAR SUPPLEMENTAL SCALE SQ SCH ×3 (06:00→11:43)
[2017-06-01] MEDS: POTASSIUM PHOSPHATE/SODIUM PHOSPHATE 250 MG TAB PO SCH (06:37)
[2017-06-01] MEDS: METOPROLOL TARTRATE 25 MG TAB PO SCH ×2 (06:37→14:24)
[2017-06-01] MEDS: ACETAMINOPHEN 1000 MG/100 ML VIAL IV SCH ×2 (06:39→14:24)
[2017-06-01 08:21] LABS: BICARBONATE 23.6 MEQ/L (21.0-32.0)
[2017-06-01] MEDS: PANTOPRAZOLE SOD 40 MG DELAYED RELEASE TAB PO SCH (08:36)
[2017-06-01] MEDS: SODIUM CHLORIDE 0.9% FLUSH 10 ML FLUSH IV FLUSH SCH (08:37)
[2017-06-01] MEDS: MAGNESIUM OXIDE 400 MG TAB PO SCH (08:37)
[2017-06-01] MEDS: CHLORHEXIDINE 0.12% (ORAL KIT) 15 ML CUP MT SCH (08:37)
[2017-06-01] MEDS: DOCUSATE SODIUM 50 MG/SENNA 8.6 MG TAB PO SCH (08:37)
[2017-06-01] MEDS: ESCITALOPRAM OXALATE 20 MG TAB PO SCH (08:37)
[2017-06-01] MEDS: CLOPIDOGREL 75 MG TAB PO SCH (08:37)
[2017-06-01] MEDS: ASPIRIN 81 MG CHEW TAB CHEW SCH (08:37)
[2017-06-01] MEDS: amLODIPine BESYLATE 5 MG TAB PO SCH (08:37)
--- NOTE | 2017-06-01 10:11 | HHI.FPPN ---
Subjective Remarks No acute events overnight. Except for some hypertension, patient has remained afebrile with vital signs stable overnight. Patient reports that she is "ready to take on the world". She had some coffee. She is feeling hungry. She reports feeding herself. Her only complaint is a little but pain. She thinks she is in [place]. When told she is in [place], she knows that she is in [place]. She thinks the year is 2017. She knows Trump is the present. (David Carvajal MD R1) Objective Vitals Vital Signs Date Time Temp Pulse Resp B/P Pulse Ox O2 Delivery O2 Flow Rate FiO2 06/01/17 08:00 97.2 72 18 172/89 97 06/01/17 07:05 71 06/01/17 04:00 97.0 69 18 167/81 95 06/01/17 03:47 96 21 06/01/17 01:20 95 21 06/01/17 00:00 98.1 64 18 162/77 94 05/31/17 20:00 68 05/31/17 16:24 97.3 69 28 143/72 96 05/31/17 15:50 95 21 05/31/17 12:07 97.6 54 20 125/69 96 05/31/17 10:06 96 I/O 05/31/17 05/31/17 05/31/17 06/01/17 06/01/17 06/01/17 06:59 14:59 22:59 06:59 14:59 22:59 Intake Total 611 ml 503 ml 840 ml Output Total 750 ml 800 ml Balance -139 ml 503 ml -800 ml 840 ml Intake Oral 120 ml 240 ml IV Total 491 ml 503 ml 600 ml Output Urine Total 750 ml 800 ml (David Carvajal MD R1) Result Diagram: 05/31/17 0742 06/01/17 0738 Imaging Last Impressions Neck Magnetic Resonance Angiography 05/29/17 1051 Signed Impressions: Service Date/Time: Monday, May 29, 2017 14:46 - CONCLUSION: 1. 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 Clinical evaluation for disparate upper extremity blood pressures is suggested. 2. 40%% stenosis of the right ICA and 20%% stenosis of the left ICA. 3. Dominant right vertebral artery. Russ Nice Jr., MD Head Magnetic Resonance Angiography 05/29/17 1051 Signed Impressions: Service Date/Time: Monday, May 29, 2017 14:46 - CONCLUSION: Normal examination except for some distal narrowing of the left vertebral artery probably chronic. Atilio Felix MD Upper Extremity Ultrasound 05/29/17 0000 Signed Impressions: Service Date/Time: Monday, May 29, 2017 14:30 - CONCLUSION: Normal examination. There is soft tissue edema within the biceps musculature raise the possibility of a biceps tendon injury. Correlate for elbow or shoulder pain and an appropriate MRI on an outpatient basis could be performed if clinically warranted. Atilio Felix MD Lung Scan-V Nuclear Medicine 05/29/17 0000 Signed Impressions: Service Date/Time: Monday, May 29, 2017 13:55 - CONCLUSION: Low probability for pulmonary embolus. Russ Nice Jr., MD Chest X-Ray 05/27/17 1340 Signed Impressions: Service Date/Time: Saturday, May 27, 2017 13:51 - CONCLUSION: No acute cardiopulmonary disease. Adelina Sharpe MD Carotid Artery Ultrasound 05/27/17 1243 Signed Impressions: Service Date/Time: Saturday, May 27, 2017 15:21 - CONCLUSION: Significant hemodynamic stenosis involving the origin of the right ICA. Adelina Sharpe MD Head CT 05/26/17 0814 Signed Impressions: Service Date/Time: Friday, May 26, 2017 08:48 - CONCLUSION: Slight atrophic and small vessel ischemic changes without any evidence for acute hemorrhage or mass effect. Adelina Sharpe MD Lower Extremity Ultrasound 05/26/17 0000 Signed Impressions: Service Date/Time: Friday, May 26, 2017 09:16 - CONCLUSION: 1. No DVT. 2. Mixed echogenic mass in the right groin could be pathological lymph node possibly organized hematoma or even a solid mass and clinical correlation is needed. Adelina Sharpe MD Brain MRI 05/26/17 0000 Signed Impressions: Service Date/Time: Friday, May 26, 2017 17:26 - CONCLUSION: Mild chronic white matter changes. Otherwise negative noncontrast MRI of the brain. No acute abnormality demonstrated. Isai Blas MD Pelvis X-Ray 05/25/17 0000 Signed Impressions: Service Date/Time: May 13:51 - CONCLUSION: 1. Concern for sacral insufficiency fracture on the right. Consider CT to further evaluate. 2. Osteopenia. Russ Nice Jr., MD Pelvis CT 05/25/17 0000 Signed Impressions: Service Date/Time: May 15:38 - CONCLUSION: 1. Acute right sacral insufficiency fracture. 2. 3.4 x 2.5 cm low-density lesion involving the right inguinal region. This is poorly characterize on this unenhanced study. The Hounsfield units are approaching that of water and this may relate to a cyst or seroma. It is stable in the short interval from the prior study. 3. Colonic diverticulosis. 4. Absence of the right kidney. Russ Nice Jr., MD Objective Remarks GENERAL: Extubated, patient was awake and alert this morning. SKIN: No rashes, no jaundice. HEENT: Significant retrognathia. No scleral icterus, no conjunctival injection. Pupils 2mm and reactive bilaterally. NECK: Supple. CV: Regular rate and regular rhythm, S1 S2. CHEST/PULM: CTAB anteriorly. ABD/GI: +BS, soft, nondistended EXT: Lymphedema of right arm. Patient moving all limbs spontaneously. Soft restraints in place. NEURO: She is alert and oriented to person, but not place or time or situation. She is easy to understand today. PSYCH: Unable to assess. : Chavis draining yellow urine. (David Carvajal MD R1) A/P Assessment and Plan Patient is an 81-year-old woman who presents with 4 days of immobilizing right buttock pain found to have a sacral insufficiency fracture on CT scan. She was initially placed in observation for pain control, PT consult with early mobilization, and IV fluids because of her inability to feed herself. The night she was placed in observation, she became apneic and hypoxic with a pulse ox in the 70s and was promptly intubated and transferred to ICU. She was successfully weaned off of the vent on 05/27/17. Attempted to discern etiology of apnea, likely cyclical problem of undiagnosed KATALINA and NSTEMI. Discharge Planning Patient is medically cleared for discharge to inpatient rehabilitation for physical therapy and occupational therapy pending her ability to eat enough to not need IV fluids. (David Carvajal MD R1) Attending Attestation Patient seen and examined, discussed with resident team. I agree with assessment and management as documented and discussed with me. No new concerns. Discharge to SNF/rehab today if able to arrange. (Aminata Hsu MD) Problem List: (1) NSTEMI (non-ST elevation myocardial infarction) Status: Acute Plan: EKG with ST depressions in V4, V5, V6. Elevated troponin of 1.77, 3.23, 3.03. CK-MB 16.9, 16.6, 14.9. BNP 463. Could be due to PE vs. ACS. Likely NSTEMI. - Cardiology consulted - Aspirin LA, beta jeremy, heparin drip stopped - Medical management with aspirin and Plavix and beta jeremy, all to be continued upon discharge - cardiac echo shows mild pulmonary hypertension, likely from KATALINA, which likely contributed to NSTEMI - VQ scan of lungs show a low probability of PE (2) Respiratory failure Status: Acute Plan: Pt currently extubated. Uncertain etiology, most likely cyclical relationship between undiagnosed KATALINA and ACS/NSTEMI Patient found to have elevated cardiac enzymes and echocardiogram with right ventricular strain consistent with pulmonary hypertension, consistent with KATALINA. Patient also reports a history of snoring and feeling tired throughout the day. Recommended outpatient sleep study and likely initiation of CPAP. CPAP/BiPAP ordered, but not tolerated. 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 MRI brain: nonrevealing. Echocardiogram shows right ventricular strain and pulmonary hypertension consistent with PE (3) Hypophosphatemia Status: Resolved Plan: Patient is to have decreased phosphate of 1.9. Stop Potassium phosphate sodium phosphate 3 times a day Repeat lab testing shows resolution with normal phosphorus of 2.7. (4) Decreased urine output Status: Acute Plan: Patient with decreased urine output, but now with good appetite. - Stop Half maintenance fluids with normal saline IV at 50 mL per hour since patient's appetite improved. (5) Sacral insufficiency fracture Status: Acute Plan: Secondary to osteopenia, osteoporosis, Vitamin D deficiency. Provide pain control when safe to do so. PT as soon as possible. Vitamin D supplement (50,000 units per week for 8 weeks) Calcium supplement (calcium citrate while patient is on PPI) (6) Hypertension Status: Chronic Plan: PRN antihypertensive medications initiated Will monitor and adjust medications as needed. (7) Vitamin D deficiency Status: Acute Plan: Patient will need Vitamin D replacement once extubated and able to take PO. Vitamin D supplement (50,000 units per week for 8 weeks) Calcium supplement (calcium citrate while patient is on PPI) (David Carvajal MD R1) Problem Qualifiers (1) Respiratory failure: Qualified Code: J96.01 - Acute respiratory failure with hypoxia (2) Sacral insufficiency fracture: Qualified Code: M84.48XA - Sacral insufficiency fracture, initial encounter David Carvajal MD R1 Jun 01, 2017 10:11 Aminata Hsu MD Jun 01, 2017 12:40
--- NOTE | 2017-06-02 10:51 | HHI.DS ---
Discharge Summary Admission Date May 26, 2017 at 05:18 Discharge Date: Jun 01, 2017 Admitting Diagnosis Sacral insufficiency fracture (1) Sacral insufficiency fracture Diagnosis: Principal Plan: Secondary to osteopenia, osteoporosis, Vitamin D deficiency. Provide pain control when safe to do so. PT as soon as possible. Vitamin D supplement (50,000 units per week for 8 weeks) Calcium supplement (calcium citrate while patient is on PPI) (2) Respiratory failure Diagnosis: Principal Plan: Pt currently extubated. Uncertain etiology, most likely cyclical relationship between undiagnosed KATALINA and ACS/NSTEMI Patient found to have elevated cardiac enzymes and echocardiogram with right ventricular strain consistent with pulmonary hypertension, consistent with KATALINA. Patient also reports a history of snoring and feeling tired throughout the day. Recommended outpatient sleep study and likely initiation of CPAP. CPAP/BiPAP ordered, but not tolerated. 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 MRI brain: nonrevealing. Echocardiogram shows right ventricular strain and pulmonary hypertension consistent with PE (3) NSTEMI (non-ST elevation myocardial infarction) Diagnosis: Principal Plan: EKG with ST depressions in V4, V5, V6. Elevated troponin of 1.77, 3.23, 3.03. CK-MB 16.9, 16.6, 14.9. BNP 463. Could be due to PE vs. ACS. Likely NSTEMI. - Cardiology consulted - Aspirin AR, beta jeremy, heparin drip stopped - Medical management with aspirin and Plavix and beta jeremy, all to be continued upon discharge - cardiac echo shows mild pulmonary hypertension, likely from KATALINA, which likely contributed to NSTEMI - VQ scan of lungs show a low probability of PE (4) Hypertension Plan: PRN antihypertensive medications initiated Will monitor and adjust medications as needed. (5) Vitamin D deficiency Plan: Patient will need Vitamin D replacement once extubated and able to take PO. Vitamin D supplement (50,000 units per week for 8 weeks) Calcium supplement (calcium citrate while patient is on PPI) Consultants Cardiology, Critical care, Vascular surgery. Brief History Patient is an 81-year-old woman who presents with 4 days of immobilizing right buttock pain found to have a sacral insufficiency fracture on CT scan. The patient is accompanied by her son who provides the history. Her pain started about 4 days ago after getting back from a long car ride. It is not normal for her to be in pain. She took half a tramadol last night without relief. Her pain has been so bad that she was immobile, couldn't stand, sit, or walk. She was walking last week. She usually walks with a walker. Her blood pressure has also been elevated as high as 204/110 for last 4 days. Normally, she is very lucid and alert and oriented. She is currently altered. For example, she didn't recognize her neighborhood. She has been incontinent. She couldn't sleep through the night. Today, she couldn't feed herself because she couldn't hold a cup or spoon. She lives with daughter. 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 She may have fallen recently, but it wasn't a hard fall. They deny any significant trauma. Dr. Robin is her orthopedic surgeon. Dr. Huertas is her primary care doctor. She knows her name. She doesn't know date, but she knows where she is and why she is here. CBC/BMP: 05/31/17 0742 06/01/17 0738 Significant Findings Laboratory Tests Test 05/31/17 07:42 Red Blood Count 3.28 MIL/MM3 (4.00-5.30) Hemoglobin 10.6 GM/DL (11.6-15.3) Hematocrit 30.6 % (35.0-46.0) Monocytes (%) (Auto) 11.1 % (0.0-8.0) Chloride Level 108 MEQ/L (98-107) Estimat Glomerular Filtration 84 ML/MIN (>89) Rate Imaging Neck Magnetic Resonance Angiography 05/29/17 1051 Signed Impressions: Service Date/Time: Monday, May 29, 2017 14:46 - CONCLUSION: 1. 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 Clinical evaluation for disparate upper extremity blood pressures is suggested. 2. 40%% stenosis of the right ICA and 20%% stenosis of the left ICA. 3. Dominant right vertebral artery. Russ Nice Jr., MD Head Magnetic Resonance Angiography 05/29/17 1051 Signed Impressions: Service Date/Time: Monday, May 29, 2017 14:46 - CONCLUSION: Normal examination except for some distal narrowing of the left vertebral artery probably chronic. Atilio Felix MD Upper Extremity Ultrasound 05/29/17 0000 Signed Impressions: Service Date/Time: Monday, May 29, 2017 14:30 - CONCLUSION: Normal examination. There is soft tissue edema within the biceps musculature raise the possibility of a biceps tendon injury. Correlate for elbow or shoulder pain and an appropriate MRI on an outpatient basis could be performed if clinically warranted. Atilio Felix MD Lung Scan- Nuclear Medicine 05/29/17 0000 Signed Impressions: Service Date/Time: Monday, May 29, 2017 13:55 - CONCLUSION: Low probability for pulmonary embolus. Russ Nice Jr., MD Chest X-Ray 05/27/17 1340 Signed Impressions: Service Date/Time: Saturday, May 27, 2017 13:51 - CONCLUSION: No acute cardiopulmonary disease. Adelina Sharpe MD Carotid Artery Ultrasound 05/27/17 1243 Signed Impressions: Service Date/Time: Saturday, May 27, 2017 15:21 - CONCLUSION: Significant hemodynamic stenosis involving the origin of the right ICA. Adelina Sharpe MD Head CT 05/26/17 0814 Signed Impressions: Service Date/Time: Friday, May 26, 2017 08:48 - CONCLUSION: Slight atrophic and small vessel ischemic changes without any evidence for acute hemorrhage or mass effect. Adelina Sharpe MD Lower Extremity Ultrasound 05/26/17 0000 Signed Impressions: Service Date/Time: Friday, May 26, 2017 09:16 - CONCLUSION: 1. No DVT. 2. Mixed echogenic mass in the right groin could be pathological lymph node possibly organized hematoma or even a solid mass and clinical correlation is needed. Adelina Sharpe MD Brain MRI 05/26/17 0000 Signed Impressions: Service Date/Time: Friday, May 26, 2017 17:26 - CONCLUSION: Mild chronic white matter changes. Otherwise negative noncontrast MRI of the brain. No acute abnormality demonstrated. Isai Blas MD Pelvis X-Ray 05/25/17 0000 Signed Impressions: Service Date/Time: May 13:51 - CONCLUSION: 1. Concern for sacral insufficiency fracture on the right. Consider CT to further evaluate. 2. Osteopenia. Russ Nice Jr., MD Pelvis CT 05/25/17 0000 Signed Impressions: Service Date/Time: May 15:38 - CONCLUSION: 1. Acute right sacral insufficiency fracture. 2. 3.4 x 2.5 cm low-density lesion involving the right inguinal region. This is poorly characterize on this unenhanced study. The Hounsfield units are approaching that of water and this may relate to a cyst or seroma. It is stable in the short interval from the prior study. 3. Colonic diverticulosis. 4. Absence of the right kidney. Russ Nice Jr., MD PE at Discharge GENERAL: Extubated, patient was awake and alert this morning. SKIN: No rashes, no jaundice. HEENT: Significant retrognathia. No scleral icterus, no conjunctival injection. Pupils 2mm and reactive bilaterally. NECK: Supple. CV: Regular rate and regular rhythm, S1 S2. CHEST/PULM: CTAB anteriorly. ABD/GI: +BS, soft, nondistended EXT: Lymphedema of right arm. Patient moving all limbs spontaneously. Soft restraints in place. NEURO: She is alert and oriented to person, but not place or time or situation. She is easy to understand today. PSYCH: Unable to assess. : Chavis draining yellow urine. Hospital Course Patient is an 81-year-old woman with PMH of hypertension, asthma/bronchitis, and right caroted stenosis who presented with 4 days of immobilizing right buttock pain. Was found to have a sacral insufficiency fracture on CT scan. Upon arrival at the ED, she was altered, couldn't feed herself, and could not sleep through the night due to pain was placed in observation for pain control, PT consult, and was provided IV fluids. Received medications for pain control ( she received 4 mg of morphine IV for pain relief). Was found to be hypertensive with a BP of 226/130, was controlled with hydralazine when necessary for BP over 180/110. At night, patient became apneic, with PO2 in the low 70s, and bradyarrhythmic. Was intubated and transferred to the ICU. Critical care was consulted. Patient found to have hyponatremia and acute renal insufficiency, which resolved with IV fluids. Troponins were found to be elevated, ECG was normal; and due to patient's suspected iodine allergy, VQ scan and echo were ordered. No significant findings found on V/Q scan; echo showed right ventricular heart strain w/ new murmer. Cardiology and vascular surgery were consulted. Due to initial concern for PE v NSTEMI, aspirin, IV beta jeremy, and heparin were started for treatment of thrombosis; later (05/30), only aspirin was continued and plavix was added as NSTEMI was more highly suspect. Stroke was ruled out with CTA but possible TIA could not be due to hx of carotid stenosis. Patient was eventually weaned off the intubator. CPAP was provided to patient due to concern for underlying KATALINA, but she did not tolerate CPAP well and it was discontinued. In the ICU, patient gradually became more awake and alert. Conversation took place with radiologist in which the radiologist compared a CT of her pelvis from February to the recent ultrasound image of her right groin due to concern for growing hematoma as a result of sacral fracture. No change between the images was seen. The radiologist recommended follow-up ultrasound of leg in 6 months. Patient was deemed to be significantly improved from a clinical standpoint, in addition to being better able to feed herself and pain controlled. Plan established for patient to work with inpatient rehab on discharge in addition to taking aspirin, Plavix, and metroprolol. F/u with US of of leg in 6moths, f/ u with PCP and pulmonology in one week, and continue home meds. Patient and her daughter Bre voiced agreement with plan. Pt Condition on Discharge: Stable Discharge Disposition: Rehab Inpatient Discharge Instructions DIET: Follow Instructions for: As Tolerated, No Restrictions Activities you can perform: Regular-No Restrictions Follow up Referrals: PCP Follow-up - 1 Week Pulmonology - 1 Week Patient likely needs sleep study and CPAP/BiPAP. New Orders: US LEG, SOFT TISSUE - 6 Months New Medications: Calcium Citrate (Calcitrate) 950 Mg Tab 950 MG PO DAILY Calcium Supplement #30 Ref 0 TAB Acetaminophen (Eq Acetaminophen) 325 Mg Tab 650 MG PO Q6HR PRN pain #120 TAB Clopidogrel (Plavix) 75 Mg Tab 75 MG PO DAILY #30 TAB Ergocalciferol (Ergocalciferol) 50,000 Unit Cap 13478 UNITS PO Q7D #7 CAP Ibuprofen (Ibuprofen) 400 Mg Tab 400 MG PO Q6H PRN pain #120 TAB Metoprolol Tartrate (Metoprolol Tartrate) 25 Mg Tab 25 MG PO Q8HR #90 TAB Continued Medications: Amlodipine (Amlodipine) 5 Mg Tab 5 MG PO DAILY Blood Pressure Management #30 Ref 0 TAB Docusate Sodium (Stool Softener) 100 Mg Cap 1 CAP PO DAILY PRN CONSTIPATION Escitalopram (Escitalopram) 20 Mg Tab 20 MG PO DAILY #30 Ref 0 TAB Magnesium (Magnesium) 400 Mg Tab 400 MG PO DAILY Nutritional Supplement Ref 0 TAB Meclizine (Meclizine) 25 Mg Tab 25 MG PO BID PRN VERTIGO Ref 0 TAB Melatonin (Melatonin) 3 Mg Tab 3 MG PO HS PRN SLEEP Olmesartan (Benicar) 40 Mg Tab 40 MG PO DAILY Blood Pressure Management #30 Ref 0 TAB Pantoprazole (Pantoprazole) 40 Mg Tab 40 MG PO DAILY Reflux #30 Ref 0 TAB Renetta Tellez MD R1 Jun 02, 2017 10:50
== END 2017-06-01 17:25 | DRG 542 ==
LOC: NEPC 11:56 → INTOOBSV 18:28 → NEDA 18:28 → NEPHCDU 20:46 → N03B 05-26 04:36 → OBSVTOIN 05-26 05:18 → N03A 05-27 01:30 → N05B 05-30 16:04
PROVIDERS: ADMIT Family Medicine; ATTEND Family Medicine
PROC: 0BH17EZ Insertion of Endotracheal Airway into Trachea, Via Natural or Artificial Opening (ICD-10-PCS; principal; 2017-05-26)
PROC: 5A1945Z Respiratory Ventilation, 24-96 Consecutive Hours (ICD-10-PCS; 2017-05-26)
DX: M84.48XA Pathological fracture, other site, initial encounter for fracture (principal); J96.01 Acute respiratory failure with hypoxia; I21.4 Non-ST elevation (NSTEMI) myocardial infarction; E87.2 Acidosis; I27.2 Other secondary pulmonary hypertension; E83.39 Other disorders of phosphorus metabolism; E87.1 Hypo-osmolality and hyponatremia; M80.88XA Other osteoporosis with current pathological fracture, vertebra(e), initial encounter for fracture; G47.33 Obstructive sleep apnea (adult) (pediatric); Z90.5 Acquired absence of kidney; N28.9 Disorder of kidney and ureter, unspecified; I97.2 Postmastectomy lymphedema syndrome; E55.9 Vitamin D deficiency, unspecified; R62.7 Adult failure to thrive; I10 Essential (primary) hypertension; Z91.041 Radiographic dye allergy status; H91.90 Unspecified hearing loss, unspecified ear; Z78.1 Physical restraint status; M26.19 Other specified anomalies of jaw-cranial base relationship; D72.829 Elevated white blood cell count, unspecified; E78.5 Hyperlipidemia, unspecified; I65.21 Occlusion and stenosis of right carotid artery; F41.9 Anxiety disorder, unspecified; Z90.11 Acquired absence of right breast and nipple; Z85.3 Personal history of malignant neoplasm of breast; Z92.3 Personal history of irradiation; Z92.21 Personal history of antineoplastic chemotherapy; Z96.653 Presence of artificial knee joint, bilateral; Z87.891 Personal history of nicotine dependence
CPT/HCPCS: 36600; 51702; 70450; 70544; 70548; 70551; 71010; 72170; 72192; 76937; 78582; 80048; 80053; 80061; 81001; 82306; 82550; 82552; 82607; 82805; 82948; 83605; 83690; 83735; 83880; 84100; 84443; 84484; 85025; 85027; 85379; 85610; 85730; 87040; 87086; 87640; 87641; 93005; 93306; 93880; 93970; 93971; 94002; 94003; 94150; 94640; 94664; A9540; A9567; A9579; J0131; J0330; J0360; J1100; J1644; J1650; J1885; J2270; J2310; J2920; J3010; J3475; J3480; J7030; J7050; J7613; P9047

== ENCOUNTER 2017-07-07 15:16 | Emergency (ER) | payer MEDICARE, OTHER ==
[~2017-07-07] VITALS: Ht 170.2 cm; Wt 70.0 kg
[~2017-07-07 15:16] MED LIST changes: +ACET1TAB86 PO; +CALC250 PO; -CIPR-9 PO; +ERGO1CAP30 PO; +ESCI20TA PO; -FERR1TAB36 PO; -LACT PO; -LEXA10TA PO; -MELA3CAP PO; -MELAPOW2 PO; +METO25TA3 PO; -METR-1 PO; +NYST1000 SWISH-SWAL; -OXYB5TAB10 PO; +PHEN1.4%S OROPHARYNG; +PLAV75TA29 PO; -STOO100C PO; +TAMS5CAP PO; +TEMA7.5C9 PO; +ULTR50TA5 PO
[2017-07-07 15:56] VITALS: BP 134/72; PULSE 65; RESP 20; TEMP 97.9; O2SAT 95
[2017-07-07 16:27] VITALS: BP 139/73; PULSE 65; RESP 15; RESP 16; O2SAT 98
--- NOTE | 2017-07-07 16:38 | PD ---
HPI Chief Complaint: Abdominal Pain Time Seen by Provider: 16:15 Travel History International Travel<30 days: No Contact w/Intl Traveler<30days: No Traveled to known affect area: No History of Present Illness HPI 81-year-old female brought in from [facility] for reports of right upper quadrant pain for the last several days. Patient is unsure when her last bowel movement was. Seen by Aris Morris PA-C in the months on labs and studies were ordered including ultrasound of the abdomen as well as CT scan. Patient has multiple allergies so no contrast is ordered. She is unable to take pain medicine such as morphine. Patient does still have her gallbladder. Patient also has history of bowel obstruction in the past. Patient has history of multiple abdominal surgeries including total hysterectomy for uterine cancer, appendectomy, but not gallbladder surgery. Patient has history of breast cancer with total mastectomy of the right breast with axillary lymph nodes removed. Patient states her pain is currently 1/10 while laying still. PFSH Past Medical History Arthritis: Yes Asthma: Yes Autoimmune Disease: No Blood Disorders: No Anxiety: No Depression: No Heart Rhythm Problems: No Cancer: Yes (breast, uterine, ) Cardiovascular Problems: No High Cholesterol: No Chemotherapy: Yes Chest Pain: No Congestive Heart Failure: No COPD: Yes Cerebrovascular Accident: No Diabetes: No Diminished Hearing: Yes Endocrine: No Gastrointestinal Disorders: Yes (Diverticulitis 03/29) GERD: Yes Glaucoma: No Genitourinary: No Headaches: No Hepatitis: No Hiatal Hernia: No Hypertension: Yes Immune Disorder: No Implanted Vascular Access Dvce: Yes Kidney Stones: No Musculoskeletal: Yes (osteoperosis) Neurologic: No Psychiatric: No Reproductive: No Respiratory: Yes (COPD) Integumentary: Yes (hx of having RIGHT ARM CELLULITIS) Immunizations Current: Yes Migraines: No Myocardial Infarction: No Radiation Therapy: Yes Renal Failure: No Seizures: No Sickle Cell Disease: No Sleep Apnea: No Thyroid Disease: No Ulcer: No PNEUMOCCOCAL Vaccine (Year): 1 ?: Not Menopausal: Yes : 3 Para: 3 Past Surgical History Abdominal Surgery: Yes AICD: No Appendectomy: Yes Arteriovenous Shunt: No Body Medical Devices: POSSIBLE MESH TO RIGHT GROIN Cardiac Surgery: No Section: Yes (3) Cholecystectomy: No Ear Surgery: No Endocrine Surgery: Yes (kidney removed 2003) Eye Surgery: No Genitourinary Surgery: Yes Gynecologic Surgery: Yes Hysterectomy: Yes Insulin Pump: No Joint Replacement: Yes (bilateral knees and ) Mastectomy: Yes (right side ) Neurologic Surgery: No Oral Surgery: No Pacemaker: No Thoracic Surgery: No Social History Alcohol Use: No Tobacco Use: No (quit 30+ yrs ago-hx of social smoker) Substance Use: No Allergies-Medications (Allergen,Severity, Reaction): Coded Allergies: Sulfa (Sulfonamide Antibiotics) (Unverified Allergy, Severe, 07/07/17) meperidine (Unverified Allergy, Severe, 07/07/17) niacin (Unverified Allergy, Severe, RASH, 07/07/17) penicillin G (Unverified Allergy, Severe, SKIN PEALED, 07/07/17) iodine (Unverified Allergy, Unknown, unknown, 07/07/17) Pt was told never to use Iodine morphine (Unverified Allergy, Unknown, 07/07/17) potassium iodide (Unverified Allergy, Unknown, unknown, 07/07/17) Pt was told never to use Iodine povidone-iodine (Unverified Allergy, Unknown, unknown, 07/07/17) Pt was told never to use Iodine sodium iodide (Unverified Allergy, Unknown, unknown, 07/07/17) Pt was told never to use Iodine sodium iodide (Unverified Allergy, Unknown, unknown, 07/07/17) Pt was told never to use Iodine Iodinated Contrast- Oral and IV Dye (Verified Adverse Reaction, Severe, ) Uncoded Allergies: generic Benicar (Adverse Reaction, Severe, Hypertension, 03/12/17) . Reported Meds & Prescriptions Reported Meds & Active Scripts Active Flomax (Tamsulosin HCl) 0.4 Mg Cap 0.4 Mg PO HS Phenaseptic (Phenol) 1.4 % Spr 2 [place] OROPHARYNG Q2H PRN 14 Days Nystatin Liq 100,000 unit/ml Susp 5 Ml SWISH-SWAL QID 14 Days Ultram (Tramadol HCl) 50 Mg Tab 50 Mg PO Q6H PRN Restoril (Temazepam) 7.5 Mg Cap 7.5 Mg PO HS PRN Oyster Shell 250 mg + Vit D Tb (Calcium/Vitamin D) 250 Mg Calcium (625 Mg)-125 Unit Tablet 250 Mg PO Q12HR Escitalopram (Escitalopram Oxalate) 20 Mg Tab 10 Mg PO HS Metoprolol Tartrate 25 Mg Tab 25 Mg PO Q8HR Ergocalciferol 50,000 Unit Cap 50,000 Units PO Q7D Plavix (Clopidogrel Bisulfate) 75 Mg Tab 75 Mg PO DAILY Pantoprazole (Pantoprazole Sodium) 40 Mg Tab 40 Mg PO DAILY Amlodipine (Amlodipine Besylate) 5 Mg Tab 5 Mg PO DAILY Magnesium 400 Mg Tab 400 Mg PO DAILY Benicar (Olmesartan) 40 Mg Tab 40 Mg PO DAILY Eq Acetaminophen (Acetaminophen) 325 Mg Tab 650 Mg PO Q6HR PRN Review of Systems Except as stated in HPI: all other systems reviewed are Neg General / Constitutional: No: Fever Eyes: No: Visual changes HENT: No: Headaches Cardiovascular: No: Chest Pain or Discomfort Respiratory: No: Shortness of Breath Gastrointestinal: Positive: Abdominal Pain (see history of present illness.) Genitourinary: No: Dysuria Musculoskeletal: No: Pain Skin: No Rash Neurologic: No: Weakness Psychiatric: No: Depression Endocrine: No: Polydipsia Hematologic/Lymphatic: No: Easy Bruising Physical Exam Narrative GENERAL: She appears in no acute distress. SKIN: Warm and dry. Normal color. Normal turgor. Numerous well-healed abdominal surgical scars. HEAD: Atraumatic. Normocephalic. EYES: Pupils equal and round. No scleral icterus. No injection or drainage. ENT: No nasal bleeding or discharge. Mucous membranes pink and moist. Pharynx is clear. Airway is patent. NECK: Trachea midline. Supple nontender. CARDIOVASCULAR: Regular rate and rhythm. No murmurs gallops or rubs. RESPIRATORY: No accessory muscle use. Clear to auscultation. Breath sounds equal bilaterally. GASTROINTESTINAL: Abdomen soft, mild to moderate right upper quadrant tenderness. The abdomen appears nondistended. There is a palpable possible hernia to the right upper quadrant region. This will be evaluated more clearly CT and ultrasound. Hepatic and splenic margins not palpable. MUSCULOSKELETAL: Extremities without clubbing, cyanosis, or edema. No obvious deformities. NEUROLOGICAL: Awake and alert. No obvious cranial nerve deficits. Motor grossly within normal limits. Five out of 5 muscle strength in the arms and legs. Normal speech. PSYCHIATRIC: Appropriate mood and affect; insight and judgment normal. Data Data Last Documented VS Vital Signs Date Time Temp Pulse Resp B/P (MAP) Pulse Ox O2 Delivery O2 Flow Rate FiO2 07/07/17 16:27 65 16 139/73 (95) 98 Room Air 07/07/17 15:56 97.9 Orders Orders Complete Blood Count With Diff (07/07/17 16:12) Comprehensive Metabolic Panel (07/07/17 16:12) Prothrombin Time / Inr (Pt) (07/07/17 16:12) Act Partial Throm Time (Ptt) (07/07/17 16:12) Lipase (07/07/17 16:12) Urinalysis - C+S If Indicated (07/07/17 16:12) Magnesium (Mg) (07/07/17 16:12) Ct Abd/Pel W/O Iv Contrast (07/07/17 16:12) Us Abdomen Gallbladder (07/07/17 16:12) Iv Access Insert/Monitor (07/07/17 16:12) Ecg Monitoring (07/07/17 16:12) Oximetry (07/07/17 16:12) Labs Laboratory Tests Test 07/07/17 16:30 07/07/17 16:35 Urine Color YELLOW Urine Turbidity CLOUDY Urine pH 7.5 Urine Specific Elbert 1.010 Urine Protein NEG mg/dL Urine Glucose (UA) NEG mg/dL Urine Ketones NEG mg/dL Urine Occult Blood NEG Urine Nitrite NEG Urine Bilirubin NEG Urine Urobilinogen LESS THAN 2.0 MG/DL Urine Leukocyte Esterase SMALL Urine WBC 1 /hpf Urine Squamous Epithelial Cells <1 /hpf Urine Amorphous Sediment RARE Urine Mucus FEW /lpf Microscopic Urinalysis Comment CULT NOT INDICATED White Blood Count 5.8 TH/MM3 Red Blood Count 3.61 MIL/MM3 Hemoglobin 11.4 GM/DL Hematocrit 34.2 % Mean Corpuscular Volume 94.9 FL Mean Corpuscular Hemoglobin 31.5 PG Mean Corpuscular Hemoglobin Concent 33.2 % Red Cell Distribution Width 14.8 % Platelet Count 232 TH/MM3 Mean Platelet Volume 7.8 FL Neutrophils (%) (Auto) 52.6 % Lymphocytes (%) (Auto) 28.2 % Monocytes (%) (Auto) 13.3 % Eosinophils (%) (Auto) 5.3 % Basophils (%) (Auto) 0.6 % Neutrophils # (Auto) 3.0 TH/MM3 Lymphocytes # (Auto) 1.6 TH/MM3 Monocytes # (Auto) 0.8 TH/MM3 Eosinophils # (Auto) 0.3 TH/MM3 Basophils # (Auto) 0.0 TH/MM3 CBC Comment DIFF FINAL Differential Comment Prothrombin Time 10.1 SEC Prothromb Time International Ratio 0.9 RATIO Activated Partial Thromboplast Time 27.5 SEC Blood Urea Nitrogen 16 MG/DL Creatinine 0.83 MG/DL Random Glucose 83 MG/DL Total Protein 7.3 GM/DL Albumin 3.0 GM/DL Calcium Level 10.0 MG/DL Magnesium Level 2.3 MG/DL Alkaline Phosphatase 205 U/L Aspartate Amino Transf (AST/SGOT) 19 U/L Alanine Aminotransferase (ALT/SGPT) 20 U/L Total Bilirubin 0.2 MG/DL Sodium Level 135 MEQ/L Potassium Level 4.4 MEQ/L Chloride Level 101 MEQ/L Carbon Dioxide Level 27.5 MEQ/L Anion Gap 7 MEQ/L Estimat Glomerular Filtration Rate 66 ML/MIN Lipase 465 U/L [facility] Medical Decision Making Medical Screen Exam Complete: Yes Emergency Medical Condition: Yes Medical Record Reviewed: Yes Differential Diagnosis Right upper quadrant abdominal pain. Gallbladder disease. Biliary colic. Bowel obstruction. Possible abdominal hernia. Urinary tract infection. Narrative Course Patient is medically stable at time of exam. Labs ordered including CBC, CMP, lipase, magnesium, coagulation studies, and urinalysis. Ultrasound of the abdomen/gallbladder is ordered as well as CT of the abdomen without IV contrast. CBC shows no significant leukocytosis. Hemoglobin is 11.4, hematocrit is 34.2. Coagulation studies are unremarkable. CMP shows sodium 135, GFR estimated at 66, alkaline phosphatase is elevated at 205, albumin is 3.0, and lipase is elevated at 465. Urinalysis is unremarkable. CT scan shows no acute findings per radiologist other than increased stool throughout the colon. Ultrasound also shows no acute findings other than some small stones in the gallbladder without signs of gallbladder thickening or obstruction. Patient is felt to have constipation which will be treated with MiraLAX regularly to improve constipation symptoms. Patient is felt stable for discharge back to her nursing facility. Diagnosis Primary Impression: Constipation Qualified Codes: K59.00 - Constipation, unspecified Referrals: Primary Care Physician Patient Instructions: Constipation (ED), General Instructions Additional Instructions: CBC shows no significant leukocytosis. Hemoglobin is 11.4, hematocrit is 34.2. Coagulation studies are unremarkable. CMP shows sodium 135, GFR estimated at 66, alkaline phosphatase is elevated at 205, albumin is 3.0, and lipase is elevated at 465. Urinalysis is unremarkable. CT scan shows no acute findings per radiologist other than increased stool throughout the colon. Ultrasound also shows no acute findings other than some small stones in the gallbladder without signs of gallbladder thickening or obstruction. Patient is felt to have constipation which will be treated with MiraLAX regularly to improve constipation symptoms. Patient is felt stable for discharge back to her nursing facility. Med/Other Pt SpecificInfo: Prescription(s) given Disposition: 01 DISCHARGE HOME Condition: Stable Ever Heard Jul 07, 2017 16:38
--- NOTE | 2017-07-07 16:42 | PD ---
HPI Chief Complaint: Abdominal Pain Time Seen by Provider: 16:03 Travel History International Travel<30 days: No Contact w/Intl Traveler<30days: No Traveled to known affect area: No History of Present Illness HPI 80-year-old female that presents to the ED for evaluation of right upper quadrant abdominal pain. Patient reports that she's had this since having a fall about a week ago. She is currently living at [facility] for unclear reason. Patient is not really good historian but she states that she's had this pain that is worsening. She states that she was sent here to get an ultrasound or possibly imaging to see what she has. She states that she has not had her gallbladder out. She does not know what medication she takes. She does have multiple allergies to medication. The review patient's medical records and she was recently admitted for fracture of her pelvis. She is somewhat tender on the right upper quadrant. Apparently daughter is on her way here. Patient very adamant that she wants to go home. She is a lady to [facility]. History is limited because of patient's mental status. PFSH Past Medical History Arthritis: Yes Asthma: Yes Autoimmune Disease: No Blood Disorders: No Anxiety: No Depression: No Heart Rhythm Problems: No Cancer: Yes (breast, uterine, ) Cardiovascular Problems: No High Cholesterol: No Chemotherapy: Yes Chest Pain: No Congestive Heart Failure: No COPD: Yes Cerebrovascular Accident: No Diabetes: No Diminished Hearing: Yes Endocrine: No Gastrointestinal Disorders: Yes (Diverticulitis 03/29) GERD: Yes Glaucoma: No Genitourinary: No Headaches: No Hepatitis: No Hiatal Hernia: No Hypertension: Yes Immune Disorder: No Implanted Vascular Access Dvce: Yes Kidney Stones: No Musculoskeletal: Yes (osteoperosis) Neurologic: No Psychiatric: No Reproductive: No Respiratory: Yes (COPD) Integumentary: Yes (hx of having RIGHT ARM CELLULITIS) Immunizations Current: Yes Migraines: No Myocardial Infarction: No Radiation Therapy: Yes Renal Failure: No Seizures: No Sickle Cell Disease: No Sleep Apnea: No Thyroid Disease: No Ulcer: No PNEUMOCCOCAL Vaccine (Year): 1 ?: Not Menopausal: Yes : 3 Para: 3 Past Surgical History Abdominal Surgery: Yes AICD: No Appendectomy: Yes Arteriovenous Shunt: No Body Medical Devices: POSSIBLE MESH TO RIGHT GROIN Cardiac Surgery: No Section: Yes (3) Cholecystectomy: No Ear Surgery: No Endocrine Surgery: Yes (kidney removed 2003) Eye Surgery: No Genitourinary Surgery: Yes Gynecologic Surgery: Yes Hysterectomy: Yes Insulin Pump: No Joint Replacement: Yes (bilateral knees and ) Mastectomy: Yes (right side ) Neurologic Surgery: No Oral Surgery: No Pacemaker: No Thoracic Surgery: No Social History Alcohol Use: No Tobacco Use: No (quit 30+ yrs ago-hx of social smoker) Substance Use: No Allergies-Medications (Allergen,Severity, Reaction): Coded Allergies: Sulfa (Sulfonamide Antibiotics) (Unverified Allergy, Severe, 07/07/17) meperidine (Unverified Allergy, Severe, 07/07/17) niacin (Unverified Allergy, Severe, RASH, 07/07/17) penicillin G (Unverified Allergy, Severe, SKIN PEALED, 07/07/17) iodine (Unverified Allergy, Unknown, unknown, 07/07/17) Pt was told never to use Iodine morphine (Unverified Allergy, Unknown, 07/07/17) potassium iodide (Unverified Allergy, Unknown, unknown, 07/07/17) Pt was told never to use Iodine povidone-iodine (Unverified Allergy, Unknown, unknown, 07/07/17) Pt was told never to use Iodine sodium iodide (Unverified Allergy, Unknown, unknown, 07/07/17) Pt was told never to use Iodine sodium iodide (Unverified Allergy, Unknown, unknown, 07/07/17) Pt was told never to use Iodine Iodinated Contrast- Oral and IV Dye (Verified Adverse Reaction, Severe, ) Uncoded Allergies: generic Benicar (Adverse Reaction, Severe, Hypertension, 03/12/17) . Reported Meds & Prescriptions Reported Meds & Active Scripts Active Flomax (Tamsulosin HCl) 0.4 Mg Cap 0.4 Mg PO HS Phenaseptic (Phenol) 1.4 % Spr 2 [place] OROPHARYNG Q2H PRN 14 Days Nystatin Liq 100,000 unit/ml Susp 5 Ml SWISH-SWAL QID 14 Days Ultram (Tramadol HCl) 50 Mg Tab 50 Mg PO Q6H PRN Restoril (Temazepam) 7.5 Mg Cap 7.5 Mg PO HS PRN Oyster Shell 250 mg + Vit D Tb (Calcium/Vitamin D) 250 Mg Calcium (625 Mg)-125 Unit Tablet 250 Mg PO Q12HR Escitalopram (Escitalopram Oxalate) 20 Mg Tab 10 Mg PO HS Metoprolol Tartrate 25 Mg Tab 25 Mg PO Q8HR Ergocalciferol 50,000 Unit Cap 50,000 Units PO Q7D Plavix (Clopidogrel Bisulfate) 75 Mg Tab 75 Mg PO DAILY Pantoprazole (Pantoprazole Sodium) 40 Mg Tab 40 Mg PO DAILY Amlodipine (Amlodipine Besylate) 5 Mg Tab 5 Mg PO DAILY Magnesium 400 Mg Tab 400 Mg PO DAILY Benicar (Olmesartan) 40 Mg Tab 40 Mg PO DAILY Eq Acetaminophen (Acetaminophen) 325 Mg Tab 650 Mg PO Q6HR PRN Review of Systems ROS Limitations: Poor Historian Except as stated in HPI: all other systems reviewed are Neg Physical Exam Exam Limitations: Poor Historian Narrative GENERAL: SKIN: Warm and dry. HEAD: Atraumatic. Normocephalic. EYES: Pupils equal and round. No scleral icterus. No injection or drainage. ENT: No nasal bleeding or discharge. Mucous membranes pink and moist. Tongue is midline. No uvula deviation. NECK: Trachea midline. No JVD. CARDIOVASCULAR: Regular rate and rhythm. No murmurs, S3, S4. RESPIRATORY: No accessory muscle use. Clear to auscultation. Breath sounds equal bilaterally. GASTROINTESTINAL: Abdomen soft, reproducible pain in the right upper quadrant, nondistended. Hepatic and splenic margins not palpable. MUSCULOSKELETAL: Extremities without clubbing, cyanosis, or edema. No obvious deformities. Full range of motion of the upper and lower extremities bilaterally. 2+ pulses bilaterally. NEUROLOGICAL: Awake and alert. No obvious cranial nerve deficits. Motor grossly within normal limits. Five out of 5 muscle strength in the arms and legs. Normal speech. PSYCHIATRIC: Appropriate mood and affect; insight and judgment normal. Data Data Last Documented VS Vital Signs Date Time Temp Pulse Resp B/P (MAP) Pulse Ox O2 Delivery O2 Flow Rate FiO2 07/07/17 16:27 65 16 139/73 (95) 98 Room Air 07/07/17 15:56 97.9 Orders Orders Complete Blood Count With Diff (07/07/17 16:12) Comprehensive Metabolic Panel (07/07/17 16:12) Prothrombin Time / Inr (Pt) (07/07/17 16:12) Act Partial Throm Time (Ptt) (07/07/17 16:12) Lipase (07/07/17 16:12) Urinalysis - C+S If Indicated (07/07/17 16:12) Magnesium (Mg) (07/07/17 16:12) Ct Abd/Pel W/O Iv Contrast (07/07/17 16:12) Us Abdomen Gallbladder (07/07/17 16:12) Iv Access Insert/Monitor (07/07/17 16:12) Ecg Monitoring (07/07/17 16:12) Oximetry (07/07/17 16:12) MDM Medical Decision Making Medical Screen Exam Complete: Yes Emergency Medical Condition: Yes Medical Record Reviewed: Yes Differential Diagnosis Right upper quadrant pain versus hernia versus chronic pain versus gallbladder disease versus obstruction Narrative Course 80-year-old female that presents to the ED for evaluation of right upper quadrant pain. Patient was properly examined and was found to have signs and symptoms of unclear etiology at this time. She somewhat of a poor historian. I initially saw the patient in the ambulance siddiqui and place orders on the patient. Case was signed out to Ever Heard PA-C pending disposition. Aris Morris Jul 07, 2017 16:42
[2017-07-07 17:12] LABS: BASOPHIL % 0.6 % (0.0-2.0); EOSINOPHIL # 0.3 TH/MM3 (0-0.4); EOSINOPHIL % 5.3 % (0.0-4.0); HEMATOCRIT 34.2 % (35.0-46.0); HEMO FLAGS DIFF FINAL; LYMPH % 28.2 % (9.0-44.0); LYMPHOCYTE # 1.6 TH/MM3 (1.0-4.8); MEAN CELL VOLUME 94.9 FL (80.0-100.0); MEAN CORPUSCULAR HEMOGLOBIN 31.5 PG (27.0-34.0); MEAN CORPUSCULAR HGB CONC 33.2 % (32.0-36.0); MONO % 13.3 % (0.0-8.0); NEUT % 52.6 % (16.0-70.0); PLATELET COUNT 232 TH/MM3 (150-450); RED BLOOD COUNT 3.61 MIL/MM3 (4.00-5.30); RED CELL DISTRIBUTION WIDTH 14.8 % (11.6-17.2); WHITE BLOOD COUNT 5.8 TH/MM3 (4.0-11.0)
[2017-07-07 17:18] LABS: BLOOD, URINE NEG (NEG); COMMENT (UR) CULT NOT INDICATED; CULTURE IF INDICATED CULT NOT INDICATED; GLUCOSE,URINE NEG (NEG); KETONE, URINE NEG (NEG); MUCUS URINE FEW /lpf (OCC); NITRITE,URINE NEG (NEG); PH, URINE 7.5 (5.0-8.5); SQUAMOUS EPITHELIAL CELL URINE <1 /hpf (0-5); URINE COLOR YELLOW (YELLW/STRAW)
[2017-07-07 17:32] LABS: ALKALINE PHOSPHATASE 205 U/L (45-117); TOTAL BILIRUBIN ADULT 0.2 MG/DL (0.2-1.0)
[2017-07-07 17:36] LABS: ALT (GPT) 20 U/L (10-53); ANION GAP 7 MEQ/L (5-15); AST (GOT) 19 U/L (15-37); BICARBONATE 27.5 MEQ/L (21.0-32.0); BLOOD UREA NITROGEN 16 MG/DL (7-18); CHLORIDE 101 MEQ/L (98-107); GLOMERULAR FILTRATION RATE 66 ML/MIN (>89); MAGNESIUM 2.3 MG/DL (1.5-2.5); POTASSIUM 4.4 MEQ/L (3.5-5.1); SODIUM (NA) 135 MEQ/L (136-145)
[2017-07-07 17:39] LABS: APTT (PATIENT) 27.5 SEC (24.3-30.1); INTERNATIONAL NORMALIZED RATIO 0.9 RATIO; PROTHROMBIN TIME - PATIENT 10.1 SEC (9.8-11.6)
--- NOTE | 2017-07-07 17:43 | RADRPT ---
EXAM DATE/TIME: 07/07/2017 17:12 [facility] COMPARISON: CT ABDOMEN & PELVIS W/O CONTRAST, March 12, 2017, 14:44. INDICATIONS : Right upper quad abdominal pain. ORAL CONTRAST: No oral contrast ingested. RADIATION DOSE: 9.96 CTDIvol (mGy) MEDICAL HISTORY : Hypertension. Carcinoma, breast. right kidney cancer SURGICAL HISTORY : Nephrectomy, right. Appendectomy.Hysterectomy.masectomy ENCOUNTER: Initial ACUITY: 1 day PAIN SCALE: 5/10 LOCATION: Right upper quadrant TECHNIQUE: Volumetric scanning of the abdomen and pelvis was performed. Using automated exposure control and ad justment of the mA and/or kV according to patient size, radiation dose was kept as low as reasonably achievable to obtain optimal diagnostic quality images. DICOM format image data is available electro nically for review and comparison. FINDINGS: Examination quality mildly degraded secondary to arm position. LOWER LUNGS: The visualized lower lungs are clear. LIVER: Homogeneous density without lesion. There is no dilation of the biliary tree. There are calcified s tones in the gallbladder without signs of inflammation. SPLEEN: Normal size without lesion. PANCREAS: Within normal limits. KIDNEYS: Right kidney is surgically absent. There is a 2.1 cm simple left renal cyst in the mid kidney. No hyd ronephrosis or mass. ADRENAL GLANDS: Within normal limits. VASCULAR: There is no aortic aneurysm. 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 BOWEL/MESENTERY: The stomach, small bowel, and colon demonstrate no acute abnormality. There is no free intraperitone al air or fluid. There is sigmoid diverticulosis with a large amount of stool throughout the colon. ABDOMINAL WALL: Within normal limits. RETROPERITONEUM: There is no lymphadenopathy. BLADDER: Decompressed with a Chavis catheter present. REPRODUCTIVE: Uterus is absent. INGUINAL: There is no lymphadenopathy or hernia. MUSCULOSKELETAL: There degenerative changes of the lumbar spine. Right proximal femur hardware is present. Increased d ensity within the sacral ala bilaterally could be related to old fractures. CONCLUSION: 1. No acute finding is identified to explain the right upper quadrant pain. There is cholelithiasis b ut no acute inflammation is appreciated. 2. Nonacute findings include severe atherosclerotic disease, 2.1 cm left renal cyst, and sigmoid dive rticulosis. Isai Villanueva MD on July 07, 2017 at 17:36 Board Certified Radiologist. This report was verified electronically.
--- NOTE | 2017-07-07 17:59 | RADRPT ---
EXAM DATE/TIME: 07/07/2017 17:18 [facility] COMPARISON: CT ABDOMEN & PELVIS W/O CONTRAST, July 07, 2017, 17:12. INDICATIONS : Right upper quadrant pain. MEDICAL HISTORY : Hypertension. Gastroesophageal reflux disease. Arthritis. Hearing loss. Glasses. Upper dentures. COPD . Asthma. Dyspnea. Diverticulitis. Osteoporosis. Breast cancer. Uterine cancer. Chemotherapy. Radiati on therapy. SURGICAL HISTORY : Appendectomy. Hysterectomy. section. Right mastectomy. Right nephrectomy. Bilateral knee rep lacement. ENCOUNTER: Subsequent ACUITY: 2 weeks PAIN SCORE: 6/10 LOCATION: Right upper quadrant MEASUREMENTS: LIVER: 13.2 cm length COMMON DUCT: 4 mm RIGHT KIDNEY: Surgically absent FINDINGS: LIVER: Normal echotexture without focal lesion or ductal dilatation. COMMON DUCT: No intraluminal mass or stone visualized. GALLBLADDER: Several tiny stones. No gallbladder wall thickening or pericholecystic fluid. Negative sonographic Mu rphy's sign. PANCREAS: The visualized portions are within normal limits. RIGHT KIDNEY: Previous right nephrectomy. Nephrectomy bed appears normal. CONCLUSION: No acute abnormality demonstrated. Tiny stones in an otherwise normal-appearing gallbladder. Isai Blas MD on July 07, 2017 at 17:56 Board Certified Radiologist. This report was verified electronically.
[2017-07-07] MEDS ORDERED: MIRA3350 PO ×2 (18:06→18:39)
[2017-07-07 18:44] VITALS: BP 165/70
[2017-07-07] MEDS: RESP: ALBUTEROL 2.5 MG/IPRATROPIUM 0.5 MG NEB (SCH) NEB ONE ×2 (21:07→21:46)
[2017-07-07 21:28] VITALS: BP 180/83; PULSE 70; RESP 16; O2SAT 100
== END 2017-07-07 18:44 | disposition home or self-care (01) ==
LOC: NEPC 15:16
DX: R10.11 Right upper quadrant pain (principal); M13.80 Other specified arthritis, unspecified site; K21.9 Gastro-esophageal reflux disease without esophagitis; J44.9 Chronic obstructive pulmonary disease, unspecified; I10 Essential (primary) hypertension; J45.909 Unspecified asthma, uncomplicated; Z79.02 Long term (current) use of antithrombotics/antiplatelets; Z79.899 Other long term (current) drug therapy; Z88.0 Allergy status to penicillin
CPT/HCPCS: 74176; 76705; 80053; 81001; 83690; 83735; 85025; 85610; 85730; 94664; 99285

== ENCOUNTER 2017-07-31 14:29 | Emergency (ER) | payer MEDICARE, OTHER ==
[~2017-07-31] VITALS: Ht 162.6 cm; Wt 50.0 kg
[~2017-07-31 14:29] MED LIST changes: +MIRA3350 PO
[2017-07-31 14:45] VITALS: BP 171/86; PULSE 61; RESP 16; TEMP 98.6; O2SAT 99
[2017-07-31] MEDS ORDERED: SODIUM CHLOR 0.9% 1000 ML INJ 1,000 ML IV SCH (14:53)
[2017-07-31] MEDS ORDERED: SODIUM CHLORIDE 0.9% FLUSH 5 ML FLUSH IV FLUSH PRN (15:00)
[2017-07-31 15:11] VITALS: BP 171/86; PULSE 61; RESP 22; O2SAT 100
--- NOTE | 2017-07-31 15:23 | PD ---
HPI . Altered mental status Chief Complaint: Altered Mental Status Time Seen by Provider: 14:53 Travel History International Travel<30 days: No Contact w/Intl Traveler<30days: No Traveled to known affect area: No History of Present Illness HPI This patient presents to us from an assisted living facility for the evaluation of altered mental status. The patient reportedly had a swallowing study done at the [facility] earlier today and failed. She was subsequently sent to us for CT of her head. The patient's only complaint to me is that she is "ready to get the hell out of here." No further history is really available from the patient. On review of her records, she was admitted in May because of a sacral fracture. She was nonambulatory as a result of the fracture. She was subsequently admitted to rehabilitation. She had a anahi course while in the hospital and actually coded. She was then found to have an elevated d-dimer as well as elevated troponin. She is allergic to iodine so a CT for PE was not possible. She did have an echo that showed right heart strain compatible with a PE. VQ scan showed low probability. Based on the elevated troponins, elevated d-dimer and the right heart strain noted on echo, she was heparinized. I do not see an anticoagulant on her current list of medications. The patient was never able to regain her ability to ambulate while in rehabilitation and was subsequently discharged to the assisted living facility. I am unsure of her interval history since that time. Her chronic medical problems include hypertension and asthma. She has had previous breast cancer. She has had a previous nephrectomy secondary to renal cell carcinoma. She had a laboratory workup done at the assisted-living facility on 07/27. That lab workup was essentially unremarkable. I will not repeat all of the studies here today. PFSH Past Medical History Arthritis: Yes Asthma: Yes Autoimmune Disease: No Blood Disorders: No Anxiety: No Depression: No Heart Rhythm Problems: No Cancer: Yes (breast, uterine, ) Cardiovascular Problems: No High Cholesterol: No Chemotherapy: Yes Chest Pain: No Congestive Heart Failure: No COPD: Yes Cerebrovascular Accident: No Diabetes: No Diminished Hearing: Yes Endocrine: No Gastrointestinal Disorders: Yes (Diverticulitis 03/29) GERD: Yes Glaucoma: No Genitourinary: No Headaches: No Hepatitis: No Hiatal Hernia: No Heparin Induced Thrombocytopen: No Hypertension: Yes Immune Disorder: No Implanted Vascular Access Dvce: Yes Kidney Stones: No Medical other: No Musculoskeletal: Yes (osteoperosis) Neurologic: No Psychiatric: No Reproductive: No Respiratory: Yes (COPD) Integumentary: Yes (hx of having RIGHT ARM CELLULITIS) Immunizations Current: Yes Migraines: No Myocardial Infarction: No Radiation Therapy: Yes Renal Failure: No Seizures: No Sickle Cell Disease: No Sleep Apnea: No Thyroid Disease: No Ulcer: No PNEUMOCCOCAL Vaccine (Year): 1 ?: Not Menopausal: Yes : 3 Para: 3 Past Surgical History Abdominal Surgery: Yes AICD: No Appendectomy: Yes Arteriovenous Shunt: No Body Medical Devices: POSSIBLE MESH TO RIGHT GROIN Cardiac Surgery: No Section: Yes (3) Cholecystectomy: No Ear Surgery: No Endocrine Surgery: Yes (kidney removed 2003) Eye Surgery: No Genitourinary Surgery: Yes Gynecologic Surgery: Yes Hysterectomy: Yes Insulin Pump: No Joint Replacement: Yes (bilateral knees and ) Mastectomy: Yes (right side ) Neurologic Surgery: No Oral Surgery: No Pacemaker: No Thoracic Surgery: No Social History Alcohol Use: No Tobacco Use: No (quit 30+ yrs ago-hx of social smoker) Substance Use: No Allergies-Medications (Allergen,Severity, Reaction): Coded Allergies: Sulfa (Sulfonamide Antibiotics) (Unverified Allergy, Severe, 07/31/17) meperidine (Unverified Allergy, Severe, 07/31/17) niacin (Unverified Allergy, Severe, RASH, 07/31/17) penicillin G (Unverified Allergy, Severe, SKIN PEALED, 07/31/17) iodine (Unverified Allergy, Unknown, unknown, 07/31/17) Pt was told never to use Iodine morphine (Unverified Allergy, Unknown, 07/31/17) potassium iodide (Unverified Allergy, Unknown, unknown, 07/31/17) Pt was told never to use Iodine povidone-iodine (Unverified Allergy, Unknown, unknown, 07/31/17) Pt was told never to use Iodine sodium iodide (Unverified Allergy, Unknown, unknown, 07/31/17) Pt was told never to use Iodine sodium iodide (Unverified Allergy, Unknown, unknown, 07/31/17) Pt was told never to use Iodine Iodinated Contrast- Oral and IV Dye (Verified Adverse Reaction, Severe, ) Uncoded Allergies: generic Benicar (Adverse Reaction, Severe, Hypertension, 03/12/17) . Reported Meds & Prescriptions Reported Meds & Active Scripts Active Miralax Powder (Polyethylene Glycol 3350 Powder) 17 Gm Powd 17 Gm PO DAILY Mix and dissolve one measuring cap-ful (17 grams) in water or juice. Flomax (Tamsulosin HCl) 0.4 Mg Cap 0.4 Mg PO HS Phenaseptic (Phenol) 1.4 % Spr 2 [place] OROPHARYNG Q2H PRN 14 Days Nystatin Liq 100,000 unit/ml Susp 5 Ml SWISH-SWAL QID 14 Days Ultram (Tramadol HCl) 50 Mg Tab 50 Mg PO Q6H PRN Restoril (Temazepam) 7.5 Mg Cap 7.5 Mg PO HS PRN Oyster Shell 250 mg + Vit D Tb (Calcium/Vitamin D) 250 Mg Calcium (625 Mg)-125 Unit Tablet 250 Mg PO Q12HR Escitalopram (Escitalopram Oxalate) 20 Mg Tab 10 Mg PO HS Metoprolol Tartrate 25 Mg Tab 25 Mg PO Q8HR Ergocalciferol 50,000 Unit Cap 50,000 Units PO Q7D Plavix (Clopidogrel Bisulfate) 75 Mg Tab 75 Mg PO DAILY Pantoprazole (Pantoprazole Sodium) 40 Mg Tab 40 Mg PO DAILY Amlodipine (Amlodipine Besylate) 5 Mg Tab 5 Mg PO DAILY Magnesium 400 Mg Tab 400 Mg PO DAILY Benicar (Olmesartan) 40 Mg Tab 40 Mg PO DAILY Eq Acetaminophen (Acetaminophen) 325 Mg Tab 650 Mg PO Q6HR PRN Review of Systems ROS Limitations: Poor Historian Except as stated in HPI: all other systems reviewed are Neg Physical Exam Narrative GENERAL: This patient seems pleasantly demented. However, I do not see dementia listed as one of her problems. SKIN: warm/dry. HEAD: Normocephalic. Atraumatic. EYES: Pupils equal and round. No scleral icterus. No injection or drainage. ENT: No nasal bleeding or discharge. Mucous membranes pink but dry. NECK: Trachea midline. Full range of motion without pain.. CARDIOVASCULAR: Regular rate and rhythm. Heart sounds are normal. RESPIRATORY: No accessory muscle use. Clear to auscultation. Breath sounds equal bilaterally. GASTROINTESTINAL: Abdomen soft. Nontender. Bowel sounds present. Nondistended. MUSCULOSKELETAL: No obvious deformities. NEUROLOGICAL: Awake and alert. No obvious cranial nerve deficits. Motor exam is nonfocal. She has global weakness. She also seems to have dysarthria which could be related to a dry mouth. PSYCHIATRIC: Unable to assess. Data Data Last Documented VS Vital Signs Date Time Temp Pulse Resp B/P (MAP) Pulse Ox O2 Delivery O2 Flow Rate FiO2 07/31/17 15:34 62 24 191/96 (127) 99 Room Air 07/31/17 14:45 98.6 Orders Orders Electrocardiogram (07/31/17 14:53) Basic Metabolic Panel (Bmp) (07/31/17 14:53) Complete Blood Count With Diff (07/31/17 14:53) Urinalysis - C+S If Indicated (07/31/17 14:53) Ct Brain W/O Iv Contrast(Rout) (07/31/17 14:53) Ecg Monitoring (07/31/17 14:53) Iv Access Insert/Monitor (07/31/17 14:53) Cath For Specimen (07/31/17 14:53) Oximetry (07/31/17 14:53) Sodium Chloride 0.9% Flush (Ns Flush) (07/31/17 15:00) Sodium Chlor 0.9% 1000 Ml Inj (Ns 1000 M (07/31/17 14:53) Barium Swallow (07/31/17 ) Urine Culture (07/31/17 15:20) Ceftriaxone Inj (Rocephin Inj) (07/31/17 16:00) Labs Laboratory Tests Test 07/31/17 15:20 White Blood Count 8.1 TH/MM3 Red Blood Count 4.12 MIL/MM3 Hemoglobin 12.8 GM/DL Hematocrit 38.6 % Mean Corpuscular Volume 93.5 FL Mean Corpuscular Hemoglobin 31.1 PG Mean Corpuscular Hemoglobin Concent 33.3 % Red Cell Distribution Width 14.0 % Platelet Count 200 TH/MM3 Mean Platelet Volume 8.1 FL Neutrophils (%) (Auto) 67.8 % Lymphocytes (%) (Auto) 19.9 % Monocytes (%) (Auto) 7.3 % Eosinophils (%) (Auto) 4.5 % Basophils (%) (Auto) 0.5 % Neutrophils # (Auto) 5.5 TH/MM3 Lymphocytes # (Auto) 1.6 TH/MM3 Monocytes # (Auto) 0.6 TH/MM3 Eosinophils # (Auto) 0.4 TH/MM3 Basophils # (Auto) 0.0 TH/MM3 CBC Comment DIFF FINAL Differential Comment Urine Color YELLOW Urine Turbidity HAZY Urine pH 7.5 Urine Specific [place] 1.011 Urine Protein NEG mg/dL Urine Glucose (UA) NEG mg/dL Urine Ketones NEG mg/dL Urine Occult Blood NEG Urine Nitrite POS Urine Bilirubin NEG Urine Urobilinogen LESS THAN 2.0 MG/DL Urine Leukocyte Esterase LARGE Urine RBC 3 /hpf Urine WBC 9 /hpf Urine Squamous Epithelial Cells <1 /hpf Microscopic Urinalysis Comment CATH-CULTURE IND Blood Urea Nitrogen 11 MG/DL Creatinine 0.83 MG/DL Random Glucose 86 MG/DL Calcium Level 9.7 MG/DL Sodium Level 139 MEQ/L Potassium Level 3.7 MEQ/L Chloride Level 107 MEQ/L Carbon Dioxide Level 26.4 MEQ/L Anion Gap 6 MEQ/L Estimat Glomerular Filtration Rate 65 ML/MIN MDM Medical Decision Making Medical Screen Exam Complete: Yes Emergency Medical Condition: Yes Medical Record Reviewed: Yes (please see the history of present illness for her review medical records) Interpretation(s) EKG shows a normal sinus rhythm with no acute ischemic change. Differential Diagnosis Differential diagnosis of altered mental status includes but is not limited to infection, electrolyte abnormality, neurological event, intoxication Narrative Course This patient presents to us for a CT of her head because of a failed swallowing study as an outpatient. The patient is unable to give much history. She acts like a patient with dementia. That is, she is pleasantly confused. She is adamant that she wants to go home. She does not have any localizing neurological findings. She does have known dysphagia and also has dysarthria. CT of the head is pending as well as a CBC, BMP and a UA. CT head>>Negative for acute process. CBC & BMP Diagram 07/31/17 15:20 Calcium Level 9.7 UA>>pos nitrite, large LE, 9 WBC. She has been given Rocephin in the emergency department. Dr. Erickson, radiology, called to tell me that the patient gave no effort to the swallowing study. Diagnosis Primary Impression: Dysphagia Qualified Codes: R13.10 - Dysphagia, unspecified Additional Impressions: Dysphasia Urinary tract infection Qualified Codes: N30.00 - Acute cystitis without hematuria Patient Instructions: General Instructions, Urinary Tract Infection in Women ( [place]) Med/Other Pt SpecificInfo: Prescription(s) given Scripts Nitrofurantoin Monohydrate Macrocrystals (Macrobid) 100 Mg Cap 100 MG PO BID for Infection, #14 CAP 0 Refills Prov: Maryjo Hendricks MD 07/31/17 Disposition: 03 DISCHARGE TO SNF Condition: Stable Maryjo Hendricks MD Jul 31, 2017 15:23
[2017-07-31 15:34] VITALS: BP 191/96; PULSE 62; RESP 24; O2SAT 99
[2017-07-31 15:45] LABS: AUTOMATED NEUTROPHIL # 5.5 TH/MM3 (1.8-7.7); BASOPHIL % 0.5 % (0.0-2.0); EOSINOPHIL # 0.4 TH/MM3 (0-0.4); EOSINOPHIL % 4.5 % (0.0-4.0); HEMATOCRIT 38.6 % (35.0-46.0); HEMO FLAGS DIFF FINAL; LYMPH % 19.9 % (9.0-44.0); LYMPHOCYTE # 1.6 TH/MM3 (1.0-4.8); MEAN CELL VOLUME 93.5 FL (80.0-100.0); MEAN CORPUSCULAR HEMOGLOBIN 31.1 PG (27.0-34.0); MEAN CORPUSCULAR HGB CONC 33.3 % (32.0-36.0); MONO % 7.3 % (0.0-8.0); NEUT % 67.8 % (16.0-70.0); PLATELET COUNT 200 TH/MM3 (150-450); RED BLOOD COUNT 4.12 MIL/MM3 (4.00-5.30); WHITE BLOOD COUNT 8.1 TH/MM3 (4.0-11.0)
[2017-07-31 15:57] LABS: BLOOD, URINE NEG (NEG); COMMENT (UR) CATH-CULTURE IND; CULTURE IF INDICATED CATH CULTURE IND; GLUCOSE,URINE NEG (NEG); KETONE, URINE NEG (NEG); NITRITE,URINE POS (NEG); PH, URINE 7.5 (5.0-8.5); SQUAMOUS EPITHELIAL CELL URINE <1 /hpf (0-5); URINE COLOR YELLOW (YELLW/STRAW)
[2017-07-31] MEDS ORDERED: cefTRIAXone INJ 1,000 MG in SODIUM CHLORIDE 0.9% INJ 100 ML IV ONE (16:00)
[2017-07-31 16:10] LABS: BICARBONATE 26.4 MEQ/L (21.0-32.0); POTASSIUM 3.7 MEQ/L (3.5-5.1)
--- NOTE | 2017-07-31 16:47 | RADRPT ---
EXAM DATE/TIME: 07/31/2017 16:19 [facility] COMPARISON: CT BRAIN W/O CONTRAST, June 12, 2017, 18:24. INDICATIONS : Altered mental status today. RADIATION DOSE: 64.89 CTDIvol (mGy) ; Patient motion MEDICAL HISTORY : Carcinoma, breast. Hypertension. SURGICAL HISTORY : None. ENCOUNTER: Initial ACUITY: 1 day PAIN SCALE: Non-responsive LOCATION: Bilateral head TECHNIQUE: Multiple contiguous axial images were obtained of the head. Using automated exposure control and adj ustment of the mA and/or kV according to patient size, radiation dose was kept as low as reasonably a chievable to obtain optimal diagnostic quality images. DICOM format image data is available electro nically for review and comparison. FINDINGS: CEREBRUM: The ventricles are normal for age. No evidence of midline shift, mass lesion, hemorrhage or acute in farction. No extra-axial fluid collections are seen. POSTERIOR FOSSA: The cerebellum and brainstem are intact. The 4th ventricle is midline. The cerebellopontine angle i s unremarkable. EXTRACRANIAL: The visualized portion of the orbits is intact. SKULL: The calvaria is intact. No evidence of skull fracture. CONCLUSION: Negative for acute process. Alfredito Erickson MD FACR on July 31, 2017 at 16:42 Board Certified Radiologist. This report was verified electronically.
[2017-07-31] MEDS ORDERED: MACR100C2 PO (16:53)
[2017-07-31 18:08] VITALS: BP 152/88; PULSE 64; O2SAT 99
--- NOTE | 2017-08-01 20:26 | EKG ---
Date Performed: 07/31/2017 Time Performed: 15:07:06 PTAGE: 82 years EKG: SINUS BRADYCARDIA WITH FIRST DEGREE AV BLOCK MARKED LEFT AXIS DEVIATION LEFT ANTERIOR FASCI CULAR BLOCK ABNORMAL ECG PREVIOUS TRACING : 05/27/2017 19.09 DOCTOR: Edilson Islas Interpretating Date/Time 08/01/2017 20:24:39
== END 2017-08-01 00:05 ==
LOC: NEPC 14:29
DX: R13.10 Dysphagia, unspecified (principal); N30.00 Acute cystitis without hematuria; B96.4 Proteus (mirabilis) (morganii) as the cause of diseases classified elsewhere; I10 Essential (primary) hypertension; Z87.891 Personal history of nicotine dependence
CPT/HCPCS: 70450; 80048; 81001; 85025; 87077; 87086; 87186; 93005; 96365; 99285; J0696; J7030; P9612